=== PATIENT | female | born 2005 | race Caucasian/White ===

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

== ENCOUNTER 2025-01-07 07:46 | Outpatient (RCR) | payer BC, OTHER, SELFPAY ==
[2025-01-07 09:25] VITALS: BP 149/82; PULSE 97; TEMP 36.6; O2SAT 97
[2025-01-07] MEDS: RHO(D) IMMUNE GLOBULIN 1,500 UNIT SYRINGE 1500 UNIT IM (09:28)
== END 2025-01-15 23:59 | disposition home or self-care (01) ==
LOC: LAB 07:46
PROVIDERS: PCP Family Medicine; Visit Provider Obstetrics & Gynecology
DX: Z67.91 Unspecified blood type, Rh negative (principal)
CPT/HCPCS: 36415; 86850; 86900; 86901; 96372; J2791

== ENCOUNTER 2025-02-24 19:15 | Outpatient (REF) | payer BC, OTHER, SELFPAY ==
--- OUTSIDE RECORDS SUMMARY | 2025-02-24 19:20 | XMS_ITS | CCD ---
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 Name Role Phone DANIEL HEWITT Consulting Unavailable DANIEL HEWITT Admitting Unavailable DANIEL HEWITT Attending Unavailable Aracelis Wing Unavailable Richie Tinajero MD Primary Care Provider Richie Tinajero DO Primary Care Provider Richie Tinajero MD Primary Care Provider Richie Tinajero DO Primary Care Provider [phone] JAMMIE KELLEYY R Referring Unavailable FURLONG, RICHIE Daley Primary Care Unavailable SACHIN ROJO Attending Unavailable ALLIE, LESLIE R Referring Unavailable FURLONG, RICHIE Daley Primary Care Unavailable ALLIE, LESLIE R Referring Unavailable FURLONG, RICHIE Daley Primary Care Unavailable SACHIN ROJO Attending Unavailable ALLIE, LESLIE R Referring Unavailable FURLONG, RICHIE Daley Primary Care Unavailable ALLIE, LESLIE R Referring Unavailable FURLONG, RICHIE Daley Primary Care Unavailable TIFFANI HENRIQUEZ Attending Unavailable ALLIE, LESLIE Attending Unavailable ALLIE, LESLIE Attending Unavailable FLORENCETIFFANI HUNTER Attending Unavailable FLORENCE, TIFFANI Attending Unavailable ALLIE, LESLIE Attending Unavailable FLORENCETIFFANI HUNTER Attending Unavailable ALLIE, LESLIE Attending Unavailable ALLIE, LESLIE Attending Unavailable SHAHLA REYNOLDS Attending Unavailable SHAHLA REYNOLDS Attending Unavailable ALLIE, LESLIE Attending Unavailable FLORENCE, TIFFANI Attending Unavailable ALLIE, LESLIE Attending Unavailable ALLIE, LESLIE Attending Unavailable Medications Current Medications Medication Drug Class(es) Dates Sig (Normalized) Sig (Original) acetaminophen 325 mg oral tablet (1 source) take 1 tablet by mouth every four hours as needed Acetaminophen 325 MG 1 tablet as needed Orally every 4 hrs Active no115/iron/folic acid ( 19 ORAL) (6 sources) no115/iron/folic acid ( 19 ORAL) Take by mouth in the morning. Active no115/i roberto/folic acid ( 19 ORAL) Take by mouth daily. Active Vit-Fe Fumarate-FA ( Vitamins) 27-0.8 MG tablet (18 sources) Vit-Fe Fumarate-FA ( Vitamins) 27-0.8 MG tablet Take by mouth Active Completed/Discontinued Medications Medication Drug Class(es) Dates Sig (Normalized) Sig (Original) labetalol hydrochloride 200 mg oral tablet (12 sources) beta-Adrenergic Shantel Start: 03-30-2024 End: 07-12-2024 take 1 tablet by mouth at bedtime labetalol (Normodyne) 200 MG tablet Indications: Secondary hypertension (CMS/HCC) TAKE 1 TABLET (200 MG) BY MOUTH IN THE MORNING AND AT BEDTIME 180 tablet 06/25/2024 07/12/2024 Discontinued levonorgestrel 0.367498 mg/hr intrauterine system (1 source) Progestin, Progestin-containi ng Intrauterine Device Start: 07-12-2024 End: 07-12-2024 Levonorgestrel intrauterine device 52 mg MV-Min-Fe Fum-FA-DHA ( 1 PO) (20 sources) End: 07-12-2024 MV-Min-Fe Fum-FA-DHA ( 1 PO) Take by mouth Daily 07/12/2024 Discontinued MV-Min- Fe Fum-FA-DHA ( 1 PO) Take by mouth Daily Active Problems Active Problems Problem Classification Problem Date Documented Date Episodic/Chronic Anxiety disorders (1 source) Other specified anxiety disorders; Translations: [OTHER SPECIFIED ANXIETY DISORDERS] Onset: 06-07-2019 Chronic Bacterial infection; unspecified site (2 sources) Mycoplasma infection; Translations: [Mycoplasma infection, unspecified site] 04-12-2024 Episodic Immunizations and screening for infectious disease (2 sources) Exposure to sexually transmissible disorder; Translations: [Contact with and (suspected) exposure to infections with a predominantly sexual mode of transmission] 10-18-2024 Episodic Menstrual disorders (2 sources) Missed period; Translations: [Irregular menstruation, unspecified] 07-12-2024 Chronic Other complications of ; puerperium affecting management of mother (3 sources) Disorder of structure; Translations: [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, single or unspecified fetus] 01-04-2025 Episodic Other complications of (2 sources) size does not accord with dates; Translations: [Uterine size-date discrepancy, unspecified trimester] 12-21-2024 Episodic Other complications of (6 sources) heart echogenicity on obstetric ultrasound scan; Translations: [Abnormal ultrasonic finding on screening of mother] Onset: 01-04-2025 01-04-2025 Episodic Other complications of (1 source) Abnormal ultrasonic finding on screening of mother; Translations: [Abnormal ultrasonic finding on screening of mother] Onset: 02-03-2025 Episodic Other congenital anomalies (6 sources) Congenital talipes equinovarus of left foot; Translations: [Congenital talipes equinovarus, left foot] 11-22-2024 Chronic Other and delivery including normal (20 sources) Third trimester ; Translations: [Encounter for supervision of normal , unspecified, third trimester] 02-26-2024 Episodic Other screening for suspected conditions (not mental disorders or infectious disease) (2 sources) Ultrasound scan abnormal; Translations: [Abnormal findings on diagnostic imaging of other specified body structures] 11-22-2024 Chronic Residual codes; unclassified (2 sources) Gestation period, [...] [36 weeks gestation of ] 04-12-2024 Episodic Residual codes; unclassified (2 sources) Gestation period, 37 weeks; Translations: [37 weeks gestation of ] 04-19-2024 Episodic Residual codes; unclassified (2 sources) Gestation period, 14 weeks; Translations: [14 weeks gestation of ] 09-20-2024 Episodic Residual codes; unclassified (2 sources) Gestation period, 18 weeks; Translations: [18 weeks gestation of ] 10-18-2024 Episodic Residual codes; unclassified (2 sources) Gestation period, 27 weeks; Translations: [27 weeks gestation of ] 12-21-2024 Episodic Residual codes; unclassified (2 sources) Gestation period, 29 weeks; Translations: [29 weeks gestation of ] 01-05-2025 Episodic Residual codes; unclassified (2 sources) Gestation period, 31 weeks; Translations: [31 weeks gestation of ] 01-20-2025 Episodic Residual codes; unclassified (2 sources) Gestation period, 33 weeks; Translations: [33 weeks gestation of ] 02-02-2025 Episodic Residual codes; unclassified (2 sources) Gestation period, 35 weeks; Translations: [35 weeks gestation of ] 02-16-2025 Episodic Short gestation; low weight; and growth retardation (2 sources) [id number] baby; Translations: [ small for gestational age, unspecified weight] 03-10-2024 Episodic Suicide and intentional self-inflicted injury (4 sources) Poisoning by selective serotonin reuptake inhibitors, intentional self-harm, initial encounter; Translations: [POISON BERONICA SRI SELF-HARM INIT ENC] Onset: 06-03-2019 Unclassified (1 source) Maternal care for other (suspected) abnormality and damage, cardiac anomalies, fetus 1; Translations: [Maternal care for other (suspected) abnormality and damage, cardiac anomalies, fetus 1] Onset: 01-04-2025 Unclassified (1 source) low estimated weight Onset: 02-09-2024 Unclassified (1 source) Maternal care for other (suspected) abnormality and damage, lower extremities anomalies, not applicable or unspecified; Translations: [Maternal care for other (suspected) abnormality and damage, lower extremities anomalies, not applicable or unspecified] Onset: 02-03-2025 Past or Other Problems Problem Classification Problem Date Documented Da te Episodic/Chronic Mood disorders (9 sources) Mood disorders Onset: 01-07-2023 01-07-2023 Other screening for suspected conditions (not mental disorders or infectious disease) (15 sources) Patient encounter status; Translations: [Encounter for suspected anomaly ruled out] Onset: 02-09-2024 02-09-2024 Episodic Other upper respiratory infections (2 sources) Acute pharyngitis, unspecified; Translations: [Acute upper respiratory infection, unspecified] Onset: 01-11-2022 Resolved: 01-11-2022 Episodic Residual codes; unclassified (2 sources) Gestation period, 26 weeks; Translations: [26 weeks gestation of ] 01-28-2024 Episodic Unclassified (9 sources) Onset: 01-07-2023 01-07-2023 Results Test Name Value Interpretation Reference Range Facility Urinalysis macro (dipstick) panel (U)on 02-16-2025 Bilirubin, UA Negative Negative - 4(70) +++ mg/dL [facility] Blood, UA Negative Negative - 50 Hector/mcL [facility] Healthcare Clarity, UA Clear [facility] Color, UA Yellow [facility] Glucose, UA Negative Negative - 1999(110) ++++ mg/dL [facility] Interpretation and review of laboratory results Normal [facility] Ketones, UA Negative Negative - 160(16) ++++ mg/dL [facility] Leukocytes, UA Negative Negative - 500+++ Josemanuel/mcL [facility] Healthcare Nitrite, UA Negative Negative - Positive [facility] pH, UA 6 5 - 9 [facility] Protein, UA Negative Negative - 1999(20) ++++ mg/dL [facility] Spec Grav, UA 1.015 1 - 1.03 [facility] Urobilinogen, UA 1.0 0.2 - 12 mg/dL [facility] Urinalysis macro (dipstick) panel (U)on 02-02-2025 Bilirubin, UA Negative Negative - 4(70) +++ mg/dL [facility] Blood, UA Negative Negative - 50 Hector/mcL [facility] Healthcare Clarity, UA Clear [facility] re Color, UA Yellow [facility] Glucose, UA Negative Negative - 1999(110) ++++ mg/dL [facility] Interpretation and review of laboratory results Abnormal [facility] Ketones, UA Negative Negative - 160(16) ++++ mg/dL [facility] Healthcare Leukocytes, UA Negative Negative - 500+++ Josemanuel/mcL [facility] Healthcare Nitrite, UA Negative Negative - Positive [facility] pH, UA 6 5 - 9 [facility] Protein, UA Negative Negative - 1999(20) ++++ mg/dL [facility] Spec Grav, UA 1.015 1 - 1.03 [facility] Urobilinogen, UA 1.0 0.2 - 12 [facility]/dL [facility] Urinalysis macro (dipstick) panel (U)on 01-20-2025 Bilirubin, UA Negative Negative - 4(70) +++ mg/dL [facility] Blood, UA Negative Negative - 50 Hector/mcL [facility] Healthcare Clarity, UA Clear [facility] re Color, UA Yellow [facility] Glucose, UA Negative Negative - 1999(110) ++++ mg/dL [facility] Interpretation and review of laboratory results Normal [facility] Ketones, UA Negative Negative - 160(16) ++++ mg/dL [facility] Leukocytes, UA Negative Negative - 500+++ Josemanuel/mcL [facility] Nitrite, UA Negative Negative - Positive [facility] pH, UA 6 5 - 9 [facility] e Protein, UA Negative Negative - 1999(20) ++++ mg/dL [facility] Spec Grav, UA 1.015 1 - 1.03 [facility] Urobilinogen, UA 1.0 0.2 - 12 mg/dL [facility] Urinalysis macro (dipstick) panel (U)on 01-05-2025 Bilirubin, UA Negative Negative - 4(70) +++ mg/dL [facility] Blood, UA Negative Negative - 50 Hector/mcL [facility] Clarity, UA Clear [facility] re Color, UA Yellow [facility] Glucose, UA Negative Negative - 1999(110) ++++ mg/dL [facility] Interpretation and review of laboratory results Abnormal [facility] Ketones, UA Negative Negative - 160(16) ++++ mg/dL [facility] Leukocytes, UA Positive Negative - 500+++ Josemanuel/mcL [facility] Nitrite, UA Negative Negative - Positive [facility] pH, UA 6.5 5 - 9 [facility] Protein, UA Negative Negative - 1999(20) ++++ mg/dL [facility] Spec Grav, UA 1.015 1 - 1.03 [facility] Urobilinogen, UA 1.0 0.2 - 12 mg/dL [facility] Urinalysis macro (dipstick) panel (U)on 12-21-2024 Bilirubin, UA Negative Negative - 4(70) +++ mg/dL [facility] Blood, UA Negative Negative - 50 Hector/mcL [facility] Clarity, UA Cloudy [facility] re Color, UA Yellow [facility] Glucose, UA Negative Negative - 1999(110) ++++ mg/dL [facility] Interpretation and review of laboratory results Abnormal [facility] Ketones, UA Negative Negative - 160(16) ++++ mg/dL [facility] Leukocytes, UA 1+ Negative - 500+++ Josemanuel/mcL [facility] Comment on above: 70 Nitrite, UA Negative Negative - Positive [facility] pH, UA 6.5 5 - 9 [facility] e Protein, UA Negative Negative - 1999(20) ++++ mg/dL [facility] Spec Grav, UA 1.015 1 - 1.03 [facility] Urobilinogen, UA 1.0 0.2 - 12 mg/dL [facility] DRUG SCREEN RAPID (URINE )on 12-20-2024 AMPHETAMINE SCREEN URINE Negative NEGATIVE [facility] BARBITURATES SCREEN URINE Negative NEGATIVE [facility] BENZODIAZEPINES SCREEN URINE Negative NEGATIVE [facility] BUPRENORPHINE SCREEN URINE Negative NEGATIVE [facility] Comment on above: DRUG CLASS TEST SYST EM CUT-OFF CONCENTRATIONS ARE FOLLOWS: AMP (Amphetamine): 500 ng/mL BAR (Barbiturates): 200 ng/mL BZO (Benzodiazepines): 150 ng/mL BUP (Buprenorphine): 10 ng/mL KELLIE (Cocaine): 150 ng/mL mAMP (Methamphetamine): 500 ng/mL MTD (Methadone): 200 ng/mL OPI (Opiates): 100 ng/mL OXY (Oxycodone): 100 ng/mL PCP (Phencyclidine): 25 ng/mL THC (Cannabinoids): 50 ng/mL TCA (Trycyclic Antidepressants): 300 ng/mL CANNABINOID SCREEN URINE Negative NEGATIVE [facility] COCAINE SCREEN URINE Negative NEGATIVE [facility] METHADONE SCREEN URINE Negative NEGATIVE [facility] METHAMPHETAMINES SCREEN URINE Negative NEGATIVE [facility] OPIATE SCREEN URINE Negative NEGATIVE [facility] OXYCODONE SCREEN URINE Negative NEGATIVE [facility] PHENCYCLIDINE SCREEN URINE Negative NEGATIVE [facility] TRICYCLIC ANTIDEPRESSANT URINE Negative NEGATIVE [facility] Ultrasound - Officeon 2024 Radiology Study observation (narrative) [facility] Radiology Study observation (narrative) [facility] Ultrasound - Officeon 2024 [facility] Urinalysis macro (dipstick) panel (U)on 11-22-2024 Bilirubin, UA Negative Negative - 4(70) +++ mg/dL [facility] Blood, UA Negative Negative - 50 Hector/mcL [facility] Clarity, UA Clear [facility] re Color, UA Yellow [facility] Glucose, UA Negative Negative - 1999(110) ++++ mg/dL [facility] Interpretation and review of laboratory results Abnormal [facility] Ketones, UA Negative Negative - 160(16) ++++ mg/dL [facility] Leukocytes, UA Negative Negative - 500+++ Josemanuel/mcL [facility] Nitrite, UA Negative Negative - Positive [facility] pH, UA 7 5 - 9 [facility] e Protein, UA Negative Negative - 1999(20) ++++ mg/dL [facility] Spec Grav, UA 1.01 1 - 1.03 [facility] Urobilinogen, UA 0.2 0.2 - 12 mg/dL [facility] RECURRENT VAGINITIS (HTRX)on 10-19-2024 ATOPOBIUM VAGINAE 27.619 Abnormal [facility] ATOPOBIUM VAGINAE Detected Abnormal [facility] BVAB 2,3 (BACTERIAL VAGINOSIS ASSOCIATED BACTERIA 2, 3); MOBILUNCUS SPP 24.427 Abnormal [facility] BVAB 2,3 (BACTERIAL VAGINOSIS ASSOCIATED BACTERIA 2, 3); MOBILUNCUS SPP Detected Abnormal [facility] EFREN ALBICANS, PARAPSILOSIS, TROPICALIS 0 [facility] EFREN ALBICANS, PARAPSILOSIS, TROPICALIS Not detected [facility] GLABRATA Not detected [facility] Not [facility] CHLAMYDIA TRACHOMATIS 0 [facility] CHLAMYDIA TRACHOMATIS Not detected N [facility] Healthcare ERMB, C; MEFA 19.826 Abnormal [facility] ERMB, C; MEFA Detected Abnormal [facility] GARDNERELLA VAGINALIS 19.747 Abnormal [facility] GARDNERELLA VAGINALIS Detected Abnormal [facility] Interpretation and review of laboratory results Abnormal [facility] MEGASPHAERA (TYPES 1, 2) 0 [facility] MEGASPHAERA (TYPES 1, 2) Not detected [facility] MYCOPLASMA GENITALIUM 0 [facility] S [facility] MYCOPLASMA GENITALIUM Not detected N OMS [facility] NEISSERIA GONORRHOEAE 0 [facility] S Healthcare NEISSERIA GONORRHOEAE Not detected N [facility] Healthcare TET B, TET M 17.847 Abnormal [facility] Healthc are TET B, TET M Detected Abnormal [facility] are TRICHOMONAS VAGINALIS 0 [facility] S [facility] TRICHOMONAS VAGINALIS Not detected N [facility] US OB 14+ WEEKS ANATOMY SCAN on 10-18-2024 US OB 14+ WEEKS ANATOMY SCAN FINDINGS: A single, live intrauterine is present [...] date of delivery of March 20, 2025. IMPRESSION: 1. Single, live intrauterine , current sonographic age of 23 weeks and 1 day, with an estimated date of delivery of March 20, 2025 2. Atypical foot morphology, possible fusion TRANSCRIBED BY: ELECTRONICALLY SIGNED BY: Keith Mcneal MD Normal Not Available Comment on above: Order Comment: US OB ANATOMY SINGLE W US OB CERVICAL LENGTH Estimated Date of Delivery: 03/21/25 Gestational Age as of 10/18/2024: 18w0d Urinalysis macro (dipstick) panel (U)on 10-18-2024 Bilirubin, UA Negative Negative - 4(70) +++ mg/dL [facility] Blood, UA Negative Negative - 50 Hector/mcL [facility] Clarity, [facility]A Clear [facility], UA Yellow [facility] e Glucose, UA Negative Negative - 2000(110) ++++ mg/dL [facility] Interpretation and review of laboratory results Abnormal [facility] Ketones, UA Negative Negative - 160(16) ++++ mg/dL [facility] Leukocytes, UA Negative Negative - 500+++ Josemanuel/mcL [facility] Nitrite, UA Negative Negative - Positive [facility] pH, UA 6.5 5 - 9 [facility] Health[facility] e Protein, UA Negative Negative - 1999(20) ++++ mg/dL [facility] Spec Grav, UA 1.025 1 - 1.03 [facility] Urobilinogen, UA 1.0 0.2 - 12 mg/dL [facility] No Panel Informationon 10-15 [facility] Rubella IGG immune statuson 10-15-2024 Rubella immune IgG immune [facility] T. pallidum IgG+IgM IA Ql (S )on 10-15-2024 Syphilis Non-Reactive [facility] Urinalysis macro (dipstick) panel (U)on 09-20-2024 Bilirubin, UA Negative Negative - 4(70) +++ mg/dL [facility] Blood, UA Negative Negative - 50 Hector/mcL [facility] Clarity, UA Clear [facility] re Color, UA Yellow [facility] e Glucose, UA Negative Negative - 1999(110) ++++ mg/dL [facility] Interpretation and review of laboratory results Normal [facility] Ketones, UA Negative Negative - 160(16) ++++ mg/dL [facility] Leukocytes, UA Trace Negative - 500+++ Josemanuel/mcL [facility] Nitrite, UA Negative Negative - Positive [facility] pH, UA 7 5 - 9 [facility] e Protein, UA Negative Negative - 1999(20) ++++ mg/dL [facility] Spec Grav, UA 1.025 1 - 1.03 [facility] Urobilinogen, UA 1.0 0.2 - 12 mg/dL [facility] HCG ( test) Ql (U)o n 08-19-2024 Interpretation and review of laboratory results Abnormal [facility] Preg Test, Ur Positive Negative [facility] US OB TRANSVAGINALon 025 US OB TRANSVAGINAL EXAM: US OB TRANSVAGINAL HISTORY: Dating. COMPARISON: None available. TECHNIQUE: Two-dimensional transvaginal grayscale ultrasound imaging of the pelvis was performed. Color Doppler evaluation of the ovaries was also performed. FINDINGS: The uterus demonstrates a normal homogeneous echotexture. The cervix measures 4.4 cm and the cervical os is closed. The right ovary measures 3.3 x 1.9 x 1.9 cm and demonstrates a normal echotexture. There is normal color Doppler flow. There is a 1.5 cm corpus luteal cyst visualized. The left ovary is not visualized. Trace fluid is present within the right adnexa. There is a single, live intrauterine gestation identified with a heart rate of 171 beats per minute and a crown-rump length measurement of 2.7 cm, correlating to a gestational age of 9 weeks 4 days (+/- 6 days). There is no subchorionic hemorrhage visualized. A yolk sac is visualized. IMPRESSION: 1. Single, live intrauterine gestation 9 weeks, 3 days by LMP. Today's ultrasound measurements correlate with a gestational age of 9 weeks 4 days (+/- 6 days). ROSALIA by today's ultrasound is 03/20/2025. 2. Normal color Doppler evaluation of the right ovary, the left ovary was not visualized. Electronically Signed:Electronical ly signed by HEMAL HANSEN II, MD, PHD at 20-Aug-2024 08:40:09 AM [facility] Normal Not Available Comment on above: Order Comment: US OB TRANSVAGINAL No LMP recorded. Ultrasound - Officeon 2024 [facility] Urinalysis macro (dipstick) panel (U)on 08-19-2024 Bilirubin, UA Negative Negative - 4(70) +++ mg/dL [facility] Blood, UA Negative Negative - 50 Hector/mcL [facility] Clarity, UA Clear [facility] Color, UA Yellow [facility] Glucose, UA Negative Negative - 1999(110) ++++ mg/dL [facility] Interpretation and review of laboratory results Abnormal [facility] Ketones, UA Positive Negative - 160(16) ++++ mg/dL [facility] Comment on above: Trace Leukocytes, UA Trace Negative - 500+++ Josemanuel/mcL [facility] Nitrite, UA Negative Negative - [facility], UA 6.5 5 - 9 [facility] Protein, UA Positive Negative - 1999(20) ++++ mg/dL [facility] Comment on above: 30mg/dL Spec Grav, UA 1.025 1 - 1.03 [facility] Urobilinogen, UA 0.2 0.2 - 12 mg/dL [facility] PREG QUANT HCGon 025 HCG QUANTITATIVE 3613 mIU/mL [facility] Comment on above: 5-50 0.2-1 WEEK 50-500 1-2 WEEKS 100-5,000 2-3 WEEKS 500-10,000 3-4 WEEKS 1,000-50,000 4-5 WEEKS 10,000-100,000 5-6 WEEKS 15,000-200,000 6-8 WEEKS 10,000-100,000 2[facility] Ql (U)o n 07-13-2024 Interpretation and review of laboratory results Abnormal [facility] Preg Test, Ur Positive Negative [facility] TBH PREG QUANT HCGon 025 HCG QUANTITATIVE 1428 mIU/mL [facility] Comment on above: 5-50 0.2-1 WEEK 50-500 1-2 WEEKS 100-5,000 2-3 WEEKS 500-10,000 3-4 WEEKS 1,000-50,000 4-5 WEEKS 10,000-100,000 5-6 WEEKS 15,000-200,000 6-8 WEEKS 10,000-100,000 2-[facility] CBC WITH AUTO DIFFon BASOPHILS ABSOLUTE AUTO 0.1 [facility] Basophils/100 WBC (Bld) 0.5 % 0.2 - 2.0 % [facility] Eosinophils/100 WBC (Bld) 1 % 0.9 - 7.0 % [facility] Erythrocyte distribution width (RBC) [Ratio] 13.5 % 11.0 - 15.0 % [facility] Hematocrit (Bld) [Volume fraction] 31.9 % Low 36.0 - 48.0 % [facility] Hemoglobin (Bld) [Mass/Vol] 10.5 g/dL Low 12.0 - 16.0 g/dL [facility] IMMATURE GRANULOCYTES ABS AUTO 0.13 High [facility] Immature granulocytes/100 WBC (Bld) 1.2 % High 0.0 - 0.5 % [facility] Interpretation and review of laboratory results Abnormal [facility] LYMPHOCYTES ABSOLUTE AUTO 3.8 [facility] Lymphocytes/100 WBC (Bld) 34.5 % 20.5 - 60.0 % [facility] MCH (RBC) [Entitic mass] 29.7 pg 26.7 - 34.0 pg [facility] MCHC (RBC) [Mass/Vol] 32.9 g/dL 29.9 - 35.2 g/dL [facility] MCV (RBC) [Entitic vol] 90.4 fL 81.0 - 99.0 fL [facility] MONOCYTES ABSOLUTE AUTO 0.6 [facility] Monocytes/100 WBC (Bld) 5.5 % 1.7 - 12.0 % [facility] NEUTROPHILS ABSOLUTE AUTO 6.3 [facility] Neutrophils/100 WBC (Bld) 57.3 % 43.0 - 75.0 % [facility] Platelet mean volume (Bld) [Entitic vol] 11.2 fL 9.5 - 13.5 fL [facility] EO # 0.1 [facility] TB PLT 240 [facility] TB RBC 3.53 Low [facility] TB WBC 11 [facility] e [facility] HP CBC WITH PLATELET NO DI FFERENTIALon 04-21-2024 Erythrocyte distribution width (RBC) [Ratio] 13.2 % 11.0 - 15.0 % [facility] Hematocrit (Bld) [Volume fraction] 33.7 % Low 36.0 - 48.0 % [facility] e Hemoglobin (Bld) [Mass/Vol] 11.2 g/dL Low 12.0 - 16.0 g/dL [facility] Interpretation and review of laboratory results Abnormal [facility] MCH (RBC) [Entitic mass] 29.6 pg 26.7 - 34.0 pg [facility] MCHC (RBC) [Mass/Vol] 33.2 g/dL 29.9 - 35.2 g/dL [facility] MCV (RBC) [Entitic vol] 89.2 fL 81.0 - 99.0 fL [facility] Platelet mean volume (Bld) [Entitic vol] 11.7 fL 9.5 - 13.5 fL [facility] are TB PLT 275 [facility] TB RBC 3.78 Low [facility] TB WBC 10.6 [facility] Urinalysis macro (dipstick) panel (U)on 04-19-2024 Bilirubin, UA Negative Negative - 4(70) +++ mg/dL [facility] Blood, UA Negative Negative - 50 Hector/mcL [facility] Healthcare Clarity, UA Clear [facility] re Color, UA Yellow [facility] Glucose, UA Negative Negative - 1999(110) ++++ mg/dL [facility] Interpretation and review of laboratory results Abnormal [facility] Ketones, UA Negative Negative - 160(16) ++++ mg/dL [facility] Leukocytes, UA Moderate Negative - 500+++ Josemanuel/mcL [facility] Nitrite, UA Negative Negative - Positive [facility] pH, UA 7 5 - 9 [facility] Protein, UA Negative Negative - 1999(20) ++++ mg/dL [facility] Spec Grav, UA 1.015 1 - 1.03 [facility] Urobilinogen, UA 0.2 0.2 - 12 mg/dL [facility]inal[facility] macro (dipstick) panel (U)on 04-12-2024 Bilirubin, UA Negative Negative - 4(70) +++ mg/dL [facility] Blood, UA Negative Negative - 50 Hector/mcL [facility] Healthcare Clarity, UA Clear [facility] re Color, UA Yellow [facility] Glucose, UA Negative Negative - 1999(110) ++++ mg/dL [facility] Interpretation and review of laboratory results Abnormal [facility] Ketones, UA Negative Negative - 160(16) ++++ mg/dL [facility] Leukocytes, UA Positive Negative - 500+++ Josemanuel/mcL [facility] Comment on above: small Nitrite, UA Negative Negative - Positive [facility] pH, UA 7 5 - 9 [facility] Healthcar e Protein, UA Negative Negative - 1999(20) ++++ mg/dL [facility] Spec Grav, UA 1.02 1 - 1.03 [facility] Urobilinogen, UA 0.2 0.2 - 12 mg/dL [facility] TB TOTAL PROTEIN 24 HOUR UR INEon 03-31-2024 Interpretation and review of laboratory results Abnormal [facility] Protein (U) [Mass/Vol] 10.7 mg/dL NINF - 11.9 mg/dL [facility] TB TOTAL PROTEIN 24 HOUR URINE 181.9 High [facility] TOTAL VOLUME 24 HOUR URINE 1700 mL/24hr [facility] e ALL CBC WITH AUTO DIFFon BASOPHILS ABSOLUTE AUTO 0 [facility] Healthcare Basophils/100 WBC (Bld) 0.3 % 0.2 - 2.0 % [facility] Eosinophils/100 WBC (Bld) 0.6 % Low 0.9 - 7.0 % [facility] Erythrocyte distribution width (RBC) [Ratio] 12.3 % 11.0 - 15.0 % [facility] Hematocrit (Bld) [Volume fraction] 34.8 % Low 36.0 - 48.0 % [facility] e Hemoglobin (Bld) [Mass/Vol] 11.7 g/dL Low 12.0 - 16.0 g/dL [facility] IMMATURE GRANULOCYTES ABS AUTO 0.15 High [facility] Immature granulocytes/100 WBC (Bld) 1.2 % High 0.0 - 0.5 % [facility] Interpretation and review of laboratory results Abnormal [facility] LYMPHOCYTES ABSOLUTE AUTO 2.6 [facility] Lymphocytes/100 WBC (Bld) 20.8 % 20.5 - 60.0 % [facility] MCH (RBC) [Entitic mass] 30 pg 26.7 - 34.0 pg [facility] MCHC (RBC) [Mass/Vol] 33.6 g/dL 29.9 - 35.2 g/dL [facility] MCV (RBC) [Entitic vol] 89.2 fL 81.0 - 99.0 fL [facility] MONOCYTES ABSOLUTE AUTO 0.5 [facility] Monocytes/100 WBC (Bld) 4.3 % 1.7 - 12.0 % [facility] NEUTROPHILS ABSOLUTE AUTO 9 High [facility] Neutrophils/100 WBC (Bld) 72.8 % 43.0 - 75.0 % [facility] Platelet mean volume (Bld) [Entitic vol] 10.8 fL 9.5 - 13.5 fL [facility] Healthc are TBH EO # 0.1 [facility] TBH PLT 289 [facility] TBH RBC 3.9 Low [facility] TBH WBC 12.3 High [facility] e Urinalysis macro (dipstick) panel (U)on 03-24-2024 Bilirubin, UA Negative Negative - 4(70) +++ mg/dL [facility] Blood, UA Negative Negative - 50 Hector/mcL [facility] Healthcare Clarity, UA Clear [facility] Color, UA Yellow [facility] Glucose, UA Negative Negative - 1999(110) ++++ mg/dL [facility] Interpretation and review of laboratory results Normal [facility] Ketones, UA Negative Negative - 160(16) ++++ mg/dL [facility] Leukocytes, UA Negative Negative - 500+++ Josemanuel/mcL [facility] Healthcare Nitrite, UA Negative Negative - Positive [facility] pH, UA 6.5 5 - 9 [facility] Health[facility] e Protein, UA Negative Negative - 1999(20) ++++ mg/dL [facility] Healthcare Spec Grav, UA 1.02 1 - 1.03 [facility] Urobilinogen, UA 0.2 0.2 - 12 mg/dL [facility] Urinalysis macro (dipstick) panel (U)on 03-10-2024 Bilirubin, UA Negative Negative - 4(70) +++ mg/dL [facility] Blood, UA Negative Negative - 50 Hector/mcL [facility] Healthcare Clarity, UA Clear [facility] Healthca re Color, UA Yellow [facility] Glucose, UA Negative Negative - 1999(110) ++++ mg/dL [facility] Interpretation and review of laboratory results Abnormal [facility] Ketones, UA Negative Negative - 160(16) ++++ mg/dL [facility] Healthcare Leukocytes, UA Trace Negative - 500+++ Josemanuel/mcL [facility] Healthcare Nitrite, UA Negative Negative - Positive [facility] pH, UA 7.5 5 - 9 [facility] Protein, UA Negative Negative - 1999(20) ++++ mg/dL [facility] Healthcare Spec Grav, UA 1.015 1 - 1.03 [facility] care Urobilinogen, UA 0.2 0.2 - 12 mg/dL [facility] Urinalysis macro (dipstick) panel (U)on 02-26-2024 Bilirubin, UA Negative Negative - 4(70) +++ mg/dL [facility] Blood, UA Negative Negative - 50 Hector/mcL [facility] Clarity, UA Clear [facility] Color, UA Yellow [facility] Glucose, UA Negative Negative - 1999(110) ++++ mg/dL [facility] Healthcare Interpretation and review of laboratory results Normal [facility] Healthcare Ketones, UA Negative Negative - 160(16) ++++ mg/dL [facility] Leukocytes, UA Negative Negative - 500+++ Josemanuel/mcL [facility] Healthcare Nitrite, UA Negative Negative - Positive [facility] Healthcare pH, UA 5.5 5 - 9 [facility] Protein, UA Negative Negative - 1999(20) ++++ mg/dL [facility] Healthcare Spec Grav, UA 1.030 1 - 1.03 [facility] Urobilinogen, UA 0.2 0.2 - 12 mg/dL [facility] Healthcare [facility] Ultrasound - OfficeOrdered B y: Martha Perdomo on 02-05-2024 Radiology Study observation (narrative) [facility] Ultrasound - Officeon 2023 Radiology Study observation (narrative) [facility] Urinalysis macro (dipstick) panel (U)on 01-28-2024 Bilirubin, UA Negative Negative - 4(70) +++ mg/dL [facility] Blood, UA Negative Negative - 50 Hector/mcL [facility] Healthcare Clarity, UA Clear [facility] Color, UA Yellow [facility] Glucose, UA Negative Negative - 1999(110) ++++ mg/dL [facility] Interpretation and review of laboratory results Normal [facility] Ketones, UA Negative Negative - 160(16) ++++ mg/dL [facility] Leukocytes, UA Negative Negative - 500+++ Josemanuel/mcL [facility] Healthcare Nitrite, UA Negative Negative - Positive [facility] Healthcare pH, UA 7.0 5 - 9 [facility] Protein, UA Negative Negative - 1999(20) ++++ mg/dL [facility] Healthcare Spec Grav, UA 1.025 1 - 1.03 [facility] Urobilinogen, UA 0.2 0.2 - 12 mg/dL [facility] Healthcare [facility] Ultrasound - Officeon 2023 [facility] ALL CBC WITH AUTO DIFFon BASOPHILS ABSOLUTE AUTO 0.0 [facility] Basophils/100 WBC (Bld) 0.3 % 0.2 - 2.0 % [facility] Eosinophils/100 WBC (Bld) 0.4 % Low 0.9 - 7.0 % [facility] Erythrocyte distribution width (RBC) [Ratio] 12.3 % 11.0 - 15.0 % [facility] Hematocrit (Bld) [Volume fraction] 36.2 % 36.0 - 48.0 % [facility] Health[facility] e Hemoglobin (Bld) [Mass/Vol] 12.6 g/dL 12.0 - 16.0 g/dL [facility] IMMATURE GRANULOCYTES ABS AUTO 0.06 High [facility] Immature granulocytes/100 WBC (Bld) 0.5 % 0.0 - 0.5 % [facility] Interpretation and review of laboratory results Abnormal [facility] LYMPHOCYTES ABSOLUTE AUTO 2.1 [facility] Lymphocytes/100 WBC (Bld) 18.0 % Low 20.5 - 60.0 % [facility] MCH (RBC) [Entitic mass] 32.6 pg 26.7 - 34.0 pg [facility] MCHC (RBC) [Mass/Vol] 34.8 g/dL 29.9 - 35.2 g/dL [facility] MCV (RBC) [Entitic vol] 93.8 fL 81.0 - 99.0 fL [facility] MONOCYTES ABSOLUTE AUTO 0.5 [facility] Monocytes/100 WBC (Bld) 3.9 % 1.7 - 12.0 % [facility] NEUTROPHILS ABSOLUTE AUTO 9.1 High [facility] Neutrophils/100 WBC (Bld) 76.9 % High 43.0 - 75.0 % [facility] Platelet mean volume (Bld) [Entitic vol] 10.4 fL 9.5 - 13.5 fL [facility].1 [facility] TB PLT 281 [facility] TB RBC 3.86 Low [facility] e TB WBC 11.9 High [facility] e Unlisted Lab Teston 12-31-19 [facility] Unlisted Lab Teston 10-24-19 [facility] HIV 1&2 AB/AG Screen (P24 AG )on 10-16-2023 HIV 1&2 AB/AG Non-Reactive [facility] Hemoglobin A1con 10-16-2023 HbA1c (Bld) [Mass fraction] 4.8 % 4.0 - 6.0 % [facility] Hepatitis B surface antigeno n 10-16-2023 Hepatitis B Surface Antigen Negative [facility] Hepatitis C(HCV) Ab w/ Refle x to PCRon 10-16-2023 HCV Ab Ql (S) Non-Reactive [facility] No [facility] 10-15 [facility] Rubella IGG immune statuson 10-16-2023 Rubella immune IgG 9.36 IU/mL [facility] Syphilis Total(Unknown Syphi lis Status)on 10-16-2023 Syphilis [facility]-Re[facility] Type and screenon 10-16-2023 Abo/Rh(D) Negative [facility] Drug Screen, UrineOrdered By : Martha Perdomo on 10-12-2023 Amphetamine/Methamphe tamine Negative [facility] Barbiturate Screen Urine Negative [facility] Benzodiazepine Screen, Urine Negative [facility] Cocaine Metabolite Negative [facility] Methadone,Meconium Negative [facility] Opiate Quantitative Urine Negative [facility] Oxycodone Negative [facility] Phencyclidine [facility] Thc Marijuana, Urine Negative [facility] Ultrasound - OfficeOrdered B y: Martha Perdomo on 10-03-2023 [facility] Unlisted Lab Teston 09-23-19 24 [facility] Quick Strepon 01-11-2022 S. pyogenes Org specific cx Ql (Throat) Negative [facility] Other Quick Strep [facility] Other SARS-CoV-2 (COVID-19) RNA NA A+probe Ql (Resp)on 01-11-2022 SARS-CoV-2 (COVID-19) RNA NIK+probe Ql (Unsp spec) Negative [facility] Other ACETAMINOPHENon 06-03-2019 Acetaminophen [Mass/Vol] <10.0 Critically low 10.1-30.0 [facility] Comment on above: Performed By: #### S ALYC, ACET, ETH #### [facility] [address] [place] [address] Scottie Lanette CBC AUTO DIFFon 06-03-2019 Basophils (Bld) [#/Vol] 0.1 103/ul Normal 0.0-0.1 [facility] Comment on above: Performed By: #### C BC #### [facility] [address] [place], [place] [id number] Scottie Lanette Basophils/100 WBC (Bld) 0.4 % Normal 0.2-2.0 [facility] Comment on above: Performed By: #### C BC #### [facility] [address] [place] [address] Scottie Lanette Eosinophils (Bld) [#/Vol] 0.1 103/ul Normal 0.0-0.7 [facility] Comment on above: Performed By: #### C BC #### [facility] [address] [place] [address] Scottie Lanette Eosinophils/100 WBC (Bld) 0.4 % Critically low 0.9-7.0 [facility] Comment on above: Performed By: #### C BC #### [facility] [address] [place] [address] Scottie Lanette Erythrocyte distribution width (RBC) [Ratio] 11.8 % Normal 11.0-15.0 [facility] Comment on above: Performed By: #### C BC #### [facility] [address] [place] [address] Scottie Lanette Hematocrit (Bld) [Volume fraction] 40.8 % Normal 36.0-48.0 [facility] Comment on above: Performed By: #### C BC #### [facility] [address] [place] [address] Scottie Lanette Hemoglobin (Bld) [Mass/Vol] 14.2 g/dL Normal 12.0-16.0 [facility] Comment on above: Performed By: #### C BC #### [facility] [address] [place] [address] Scottie Lanette IG # 0.03 10e3/ul Normal 0.00-0.03 [facility] Comment on above: Performed By: #### C BC #### [facility] [address] [place], [place] [address] Scottie Lanette IG % 0.2 % Normal 0.0-0.5 [facility] Comment on above: Performed By: #### C BC #### [facility] [address] [place] [phone] Scottie Lanette Lymphocytes (Bld) [#/Vol] 2.4 103/ul Normal 1.2-3.8 [facility] Comment on above: Performed By: #### C BC #### [facility] [address] [place] [address] Scottie Lanette Lymphocytes/100 WBC (Bld) 17.2 % Critically low 20.5-60.0 [facility] Comment on above: Performed By: #### C BC #### [facility] [address] [place], [place] [phone] Scottie Lanette MANUAL DIFF REQ NO Normal [facility] Comment on above: Performed By: #### C BC #### [facility] [address] [place] [id number] Scottie Lanette MCH (RBC) [Entitic mass] 31.2 pg Normal 26.7-34.0 [facility] Comment on above: Performed By: #### C BC #### [facility] [address] [place] [address] Scottie Lanette MCHC (RBC) [Mass/Vol] 34.8 g/dL Normal 29.9-35.2 [facility] Comment on above: Performed By: #### C BC #### [facility] [address] [place] [address] Scottie Lanette MCV (RBC) [Entitic vol] 89.7 fL Normal 79.1-95.6 [facility] Comment on above: Performed By: #### C BC #### [facility] [address] [place], [place] [phone] Scottie Lanette Monocytes (Bld) [#/Vol] 0.6 103/ul Normal 0.3-0.8 [facility] Comment on above: Performed By: #### C BC #### [facility] [address] [place], [place] [address] Scottie Lanette Monocytes/100 WBC (Bld) 4.5 % Normal 1.7-12.0 [facility] Comment on above: Performed By: #### C BC #### [facility] [address] [place], [place] [address] Scottie Lanette Neutrophils (Bld) [#/Vol] 10.9 103/ul Critically high 1.4-6.5 [facility] Comment on above: Performed By: #### C BC #### [facility] [address] [place], [place] [address] Scottie Lanette Neutrophils/100 WBC (Bld) 77.3 % Critically high 43.0-75.0 [facility] Comment on above: Performed By: #### C BC #### [facility] [address] [place] [address] Scottie Lanette Platelet mean volume (Bld) [Entitic vol] 10.7 fL Normal 9.5-13.5 [facility] Comment on above: Performed By: #### C BC #### [facility] [address] [place] [address] Scottie Lanette Platelets (Bld) [#/Vol] 348 103/ul Normal 150-450 [facility] Comment on above: Performed By: #### C BC #### [facility] [address] [place] [phone] Scottie Lanette RBC (Bld) [#/Vol] 4.55 106/ul Normal 3.40-5.30 [facility] Comment on above: Performed By: #### C BC #### [facility] [address] [place] [address] Scottie Lanette WBC (Bld) [#/Vol] 14.1 103/ul Critically high 4.0-11.0 [facility] [place] Comment on above: Performed By: #### C BC #### [facility] [address] [place] [address] Scottie Lanette DRUG SCREEN RAPID (URINE)on 06-03-2019 AMP Negative Normal NEGATIVE [facility] Comment on above: Performed By: #### TRACY CONNER DRUGRPD #### [facility] [address] [place] [address] Scottie Lanette BAR Negative Normal NEGATIVE [facility] Comment on above: Performed By: #### TRACY CONNER DRUGRPD #### [facility] [address] [place] [address] Scottie Lanette BUP Negative Normal NEGATIVE [facility] Comment on above: Performed By: #### TRACY CONNER DRUGRPD #### [facility] [address] [place] [address] Scottie Lanette BZO Negative Normal NEGATIVE [facility] Comment on above: Performed By: #### TRACY CONNER DRUGRPD #### [facility] [address] [place] [address] Scottie Lanette KELLIE Negative Normal NEGATIVE [facility] Comment on above: Performed By: #### TRACY CONNER DRUGRPD #### [facility] [address] [place] [address] Scottie Lanette CUT-OFFS SEE BELOW Normal [facility] Comment on above: Result Comment: AMP (Amphetamine): [...] Performed By: #### TRACY CONNER DRUGRPD #### [facility] [address] [place] [address] Scottie Lanette DRUG CUT HEADER DRUG CLASS TEST SYSTEM CUT-OFF CONCENTRATIONS ARE FOLLOWS: Normal [facility] Comment on above: Performed By: #### TRACY CONNER, DRUGRPD #### [facility] [address] [place] [address] Scottie Lanette mAMP Negative Normal NEGATIVE [facility] Comment on above: Performed By: #### TRACY CONNER, DRUGRPD #### [facility] [address] [place] [address] Scottie Lanette MTD Negative Normal NEGATIVE [facility] Comment on above: Performed By: #### TRACY CONNER, DRUGRPD #### [facility] [address] [place] [address] Scottie Lanette OPI Negative Normal NEGATIVE [facility] Comment on above: Performed By: #### TRACY CONNER, DRUGRPD #### [facility] [address] [place] [address] Scottie Lanette OXY Negative Normal NEGATIVE [facility] Comment on above: Performed By: #### TRACY CONNER DRUGRPD #### [facility] [address] [place] [address] Scottie Lanette PCP Negative Normal NEGATIVE [facility] Comment on above: Performed By: #### TRACY CONNER, DRUGRPD #### [facility] [address] [place] [address] Scottie Lanette PPX Negative Normal NEGATIVE [facility] Comment on above: Performed By: #### TRACY CONNER DRUGRPD #### [facility] [address] [place] [address] Scottie Lanette TCA Negative Normal NEGATIVE [facility] Comment on above: Performed By: #### TRACY CONNER DRUGRPD #### [facility] [address] [place] [address] Scottie Lanette THC Negative Normal NEGATIVE [facility] Comment on above: Performed By: #### TRACY CONNER DRUGRPD #### [facility] [address] [place] [address] Scottie Lanette ER URINE PROFILEon 01-16-202 0 Bilirubin [Mass/Vol] Negative Normal NEGATIVE [facility] Comment on above: Performed By: #### TRACY CONNER DRUGRPD #### [facility] [address] [place] [address] Scottie Lanette BLOOD LARGE Normal NEGATIVE [facility] Comment on above: Performed By: #### TRACY CONNER, DRUGRPD #### [facility] [address] [place] [address] Scottie Lanette Clarity (U) CLEAR Normal [facility] Comment on above: Performed By: #### TRACY CONNER DRUGRPD #### [facility] [address] [place] [address] Scottie Lanette Color (U) LT. YELLOW Normal YELLOW [facility] Comment on above: Performed By: #### TRACY CONNER DRUGRPD #### [facility] [address] [place] [address] Scottie Lanette ERUAHD A micrscopic examination will be performed if indicated. Normal [facility] Comment on above: Performed By: #### TRACY CONNER DRUGRPD #### [facility] [address] [place] [address] Scottie Lanette Glucose [Mass/Vol] Negative Normal NEGATIVE [facility] Comment on above: Performed By: #### TRACY CONNER DRUGRPD #### [facility] [address] [place] [address] Scottie Lanette Ketones Ql (U) 15 mg/dl Normal NEGATIVE [facility] Comment on above: Performed By: #### TRACY CONNER DRUGRPD #### [facility] [address] [place] [address] Scottie Lanette Nitrite Ql (U) Negative Normal NEGATIVE [facility] Comment on above: Performed By: #### TRACY CONNER DRUGRPD #### [facility] [address] [place] [address] Scottie Lanette pH (Bld) 7.0 Normal 5-9 [facility] Comment on above: Performed By: #### TRACY CONNER DRUGRPD #### [facility] [address] [place] [id number] Scottierandell Gama Protein (U) [Mass/Vol] Negative Normal [facility] Comment on above: Performed By: #### TRACY CONNER DRUGRPD #### [facility] [address] [place], [place] [phone] Scottie Gama SPEC GRAVITY 1.020 Normal 1.005-<=1.025 [facility] Comment on above: Performed By: #### TRACY CONNER DRUGRPD #### [facility] [address] [place], [place] [phone] Scottie Gama UR MICRO IND INDICATED Normal [facility] Comment on above: Performed By: #### TRACY CONNER DRUGRPD #### [facility] [address] [place], [place] [address] Scottie Gama Urobilinogen Qn (U) 0.2 EU/dl Normal [facility] Comment on above: Performed By: #### TRACY CONNER DRUGRPD #### [facility] [address] [place], [place] [address] Scottierandell Gama WBC (Bld) [#/Vol] Negative Normal NEGATIVE [facility] Comment on above: Performed By: #### TRACY CONNER, DRUGRPD #### [facility] [address] [place], [place] [address] Scottie Lanette ETHANOL (BLD ALC)on 06-03-19 20 Ethanol [Mass/Vol] mg/dL Normal [facility] Comment on above: Performed By: #### S ALYC, ACET, ETH #### [facility] [address] [place], [place] [address] Scottie Lanette Ethanol [Mass/Vol] NOTE: 80 mg/dl is the legal limit for a blood alcohol level Normal [facility] Comment on above: Performed By: #### S ALYC, ACET, ETH #### [facility] [address] [place], [place] [address] Scottie Gama URon 06-03-2019 , QUAL Negative Normal NEGATIVE [facility] Comment on above: Performed By: #### P REGU #### [facility] [address] [place], [place] [id number] Scottie Gama PROF 14(COMP METB)on 020 Albumin [Mass/Vol] 4.3 g/dL Normal 3.5-5.0 [facility] Comment on above: Performed By: #### C MP #### [facility] [address] [place], [place] [id number] Scottierandell Gama Albumin/Globulin [Mass ratio] 1.3 {ratio} Normal [facility] Comment on above: Performed By: #### C MP #### [facility] [address] [place], [place] [id number] Scottie Lanette ALP [Catalytic activity/Vol] 73 U/L Critically low 130-525 [facility] Comment on above: Performed By: #### C MP #### [facility] [address] [place] [address] Scottie Lanette ALT [Catalytic activity/Vol] 18 U/L Normal 9-52 [facility] Comment on above: Performed By: #### C MP #### [facility] [address] [place], [place] [id number] Scottie Lanette Anion gap [Moles/Vol] 15.7 mmol/L Normal [facility] Comment on above: Performed By: #### C MP #### [facility] [address] [place], [place] [id number] Scottie Lanette AST [Catalytic activity/Vol] 16 U/L Normal 14-36 [facility] Comment on above: Performed By: #### C MP #### [facility] [address] [place], [place] [id number] Scottie Lanette Bilirubin Ql (U) 0.3 mg/dL Normal 0.2-1.3 [facility] Comment on above: Performed By: #### C MP #### [facility] [address] [place], [place] [id number] Scottie Lanette Calcium [Mass/Vol] 9.5 mg/dL Normal 8.4-10.2 [facility] Comment on above: Performed By: #### C MP #### [facility] [address] [place], [place] [address] Scottie Lanette Chloride [Moles/Vol] 102 mmol/L Normal 98-107 [facility] Comment on above: Performed By: #### C MP #### [facility] [address] [id number] Scottie Lanette CO2 [Moles/Vol] 22.8 mmol/L Normal 22.0-30.0 [facility] Comment on above: Performed By: #### C MP #### [facility] [address] [id number] Scottie Lanette Creatinine [Mass/Vol] 0.76 mg/dL Normal 0.52-1.04 [facility] Comment on above: Performed By: #### C MP #### [facility] [address] [id number] Scottie Lanette Globulin (S) [Mass/Vol] 3.3 g/dL Normal [facility] Comment on above: Performed By: #### C MP #### [facility] [address] [id number] Scottie Lanette Glucose [Mass/Vol] 122 mg/dL Critically high 74-106 [facility] [place] Comment on above: Performed By: #### C MP #### [facility] [address] [id number] Scottie Lanette Potassium [Moles/Vol] 3.5 mmol/L Normal 3.4-5.0 [facility] Comment on above: Performed By: #### C MP #### [facility] [address] [id number] Scottie Lanette Protein [Mass/Vol] 7.6 g/dL Normal 6.1-8.2 [facility] Comment on above: Performed By: #### C MP #### [facility] [address] [place], [place] [address] Scottie Lanette Sodium [Moles/Vol] 137 mmol/L Normal 137-145 [facility] Comment on above: Performed By: #### C MP #### [facility] [address] [place] [address] Scottie Lanette Urea nitrogen [Mass/Vol] 12.0 mg/dL Normal 6.4-19.3 [facility] Comment on above: Performed By: #### C MP #### [facility] [address] [place] [address] Scottie Lanette Urea nitrogen/Creatinine [Mass ratio] 15.8 mg/mg Normal [facility] Comment on above: Performed By: #### C MP #### [facility] [address] [place] [address] Scottie Lanette SALICYLATEon 06-03-2019 SALICYLATE 1.3 mg/dL Normal <=20.0 [facility] Comment on above: Performed By: #### S ALYC, ACET, ETH #### [facility] [address] [place] [address] Scottie Lanette URINE MICROSCOPIC ONLYon Bacteria LM.HPF (Urine sed) [#/Area] TRACE Normal NONE SEEN The [facility] Comment on above: Performed By: #### Michael MARTINES UMAMOR, DRUGRPD #### [facility] [address] [place] [address] Scottie Lanette CAST NONE SEEN Normal NONE SEEN [facility] Comment on above: Performed By: #### Michael MARTINES UMICRO, DRUGRPD #### [facility] [address] [place] [address] Scottie Lanette Crystals LM Nom (Urine sed) NONE SEEN Normal NONE SEEN [facility] Comment on above: Performed By: #### TRACY CONNER, DRUGRPD #### [facility] [address] [place] [address] Scottie Lanette CULTURE NOT INDICATED Normal [facility] Comment on above: Performed By: #### Michael RUFernanda UMICESHA, DRUGRPD #### [facility] [address] [place] [address] Csottie Lanette Epithelial cells LM.HPF (Urine sed) [#/Area] RARE Normal [facility] Comment on above: Performed By: #### E RUR, UMICRO, DRUGRPD #### [facility] [address] [place], [place] [address] Scottie Lanette MUCOUS NONE SEEN Normal NONE SEEN [facility] Comment on above: Performed By: #### TRACY CONNER DRUGRPD #### [facility] [address] [place], [place] [address] Scottie Lanette RBC (U) [#/Vol] 0-2 Normal 0-2 [facility] Comment on above: Performed By: #### TRACY CONNER DRUGRPD #### [facility] [address] [place], [place] [address] Scottie Lanette WBC (Bld) [#/Vol] 0-2 Normal NONE SEEN The [place] [facility] Comment on above: Performed By: #### TRACY CONNER DRUGRPD #### [facility] [address] [place], [place] [address] Scottie Lanette Vital Signs Date Time Vital Sign Value Performing Clinician Facility 02-16-2025 13:11-0400 Body mass index (BMI) [Ratio] 35.04 kg/m2 Shahla Reynolds INVESTIGATOR CLAIMS Work Phone: [facility] 02-16-2025 13:11-0400 Body weight 89.72 kg Shahla Reynolds INVESTIGATOR CLAIMS Work Phone: [facility] 02-16-2025 13:11-0400 Diastolic blood pressure 82 mm[Hg] Shahla Reynolds INVESTIGATOR CLAIMS Work Phone: [facility] 02-16-2025 13:11-0400 Systolic blood pressure 130 mm[Hg] Shahla Contily INVESTIGATOR CLAIMS Work Phone: [facility] 02-02-2025 [id number] Body mass index (BMI) [Ratio] 33.8 kg/m2 Shahla Reynolds INVESTIGATOR CLAIMS Work Phone: [facility] 02-02-2025 09:[id number] Body weight 86.55 kg Shahla Reynolds INVESTIGATOR CLAIMS Work Phone: [facility] 02-02-2025 09:22-0400 Diastolic blood pressure 78 mm[Hg] Shahla Gail INVESTIGATOR CLAIMS Work Phone: [facility] 02-02-2025 09:22-0400 Systolic blood pressure 116 mm[Hg] Shahla Pierceerly INVESTIGATOR CLAIMS Work Phone: [facility] 01-20-2025 09:44-0400 Body mass index (BMI) [Ratio] 33.13 kg/m2 Leslie Allie DO Work Phone: [facility] 01-20-2025 09:44-0400 Body weight 84.82 kg Leslie Allie DO Work Phone: [facility] 01-20-2025 09:44-0400 Diastolic blood pressure 76 mm[Hg] Leslie Allie DO Work Phone: [facility] 01-20-2025 09:44-0400 Systolic blood pressure 118 mm[Hg] Leslie Allie DO Work Phone: [facility] 01-05-2025 13:49-0400 Body mass index (BMI) [Ratio] 31.89 kg/m2 Leslie Allie DO Work Phone: [facility] 01-05-2025 13:49-0400 Body weight 81.65 kg Leslie Allie DO Work Phone: [facility] 01-05-2025 13:49-0400 Diastolic blood pressure 74 mm[Hg] Leslie Allie DO Work Phone: [facility] 01-05-2025 13:49-0400 Systolic blood pressure 110 mm[Hg] Leslie Allie DO Work Phone: [facility] 01-04-2025 09:20-0400 Body height 160 cm Sachin Rojo MD Work Phone: [facility] 01-04-2025 09:20-0400 Body mass index (BMI) [Ratio] 32.18 kg/m2 Sachin Rojo MD Work Phone: [facility] 01-04-2025 09:20-0400 Body weight 82.37 kg Sachin Rojo MD Work Phone: [facility] 01-04-2025 09:20-0400 Diastolic blood pressure 87 mm[Hg] Sachin Rojo MD Work Phone: [facility] 01-04-2025 09:20-0400 Heart rate 104 /min Sachin Rojo MD Work Phone: [facility] 01-04-2025 09:20-0400 Systolic blood pressure 126 mm[Hg] Sachin Rojo MD Work Phone: [facility] 12-21-2024 11:55-0400 Body mass index (BMI) [Ratio] 30.82 kg/m2 Tiffani JIMENEZ Work Phone: [facility] 12-21-2024 11:55-0400 Body weight 78.93 kg Tiffani Henriquez PA Work Phone: [facility] 12-21-2024 11:55-0400 Diastolic blood pressure 70 mm[Hg] Tiffani Henriquez PA Work Phone: [facility] 12-21-2024 11:55-0400 Systolic blood pressure 120 mm[Hg] Tiffani Henriquez PA Work Phone: [facility] 11-22-2024 10:26-0400 Body mass index (BMI) [Ratio] 28.13 kg/m2 Leslie Allie DO Work Phone: [facility] 11-22-2024 10:26-0400 Body weight 72.03 kg Leslie Allie DO Work Phone: [facility] 11-22-2024 10:26-0400 Diastolic blood pressure 78 mm[Hg] Leslie Allie DO Work Phone: [facility] 11-22-2024 10:26-0400 Systolic blood pressure 120 mm[Hg] Leslie Allie DO Work Phone: [facility] 10-18-2024 12:48-0400 Diastolic blood pressure 80 mm[Hg] Tiffani Henriquez BARBARA Work Phone: [facility] 10-18-2024 12:48-0400 Systolic blood pressure 128 mm[Hg] Tiffani Henriquez PA Work Phone: [facility] 10-18-2024 12:01-0400 Body mass index (BMI) [Ratio] 26.26 kg/m2 Tiffani Henriquez PA Work Phone: [facility] 10-18-2024 12:01-0400 Body weight 67.25 kg Tiffani Henriquez PA Work Phone: [facility] 09-20-2024 13:28-0400 Body mass index (BMI) [Ratio] 25.51 kg/m2 Leslie Allie DO Work Phone: [facility] 09-20-2024 13:28-0400 Body weight 65.32 kg Leslie Allie DO Work Phone: [facility] 09-20-2024 13:28-0400 Diastolic blood pressure 86 mm[Hg] Leslie Allie DO Work Phone: [facility] 09-20-2024 13:28-0400 Systolic blood pressure 118 mm[Hg] Leslie Allie DO Work Phone: [facility] 08-19-2024 13:41-0400 Body mass index (BMI) [Ratio] 25.69 kg/m2 [facility] 08-19-2024 13:41-0400 Body weight 65.77 kg [facility] 08-19-2024 13:41-0400 Diastolic blood pressure 80 mm[Hg] [facility] 08-19-2024 13:41-0400 Systolic blood pressure 126 mm[Hg] [facility] 07-12-2024 14:48-0500 Body mass index (BMI) [Ratio] 26.24 kg/m2 Leslie Allie DO Work Phone: [facility] 07-12-2024 14:48-0500 Body weight 67.19 kg Leslie Allie DO Work Phone: [facility] 07-12-2024 14:48-0500 Diastolic blood pressure 70 mm[Hg] Leslie Allie DO Work Phone: [facility] 07-12-2024 14:48-0500 Systolic blood pressure 110 mm[Hg] Leslie Allie DO Work Phone: [facility] 06-21-2024 16:16-0500 Body mass index (BMI) [Ratio] 25.69 kg/m2 Tiffani JIMENEZ Work Phone: [facility] 06-21-2024 16:16-0500 Body weight 65.77 kg Tiffani JIMENEZ Work Phone: [facility] 06-21-2024 16:16-0500 Diastolic blood pressure 76 mm[Hg] Tiffani JIMENEZ Work Phone: [facility] 06-21-2024 16:16-0500 Systolic blood pressure 104 mm[Hg] Tiffani JIMENEZ Work Phone: [facility] 04-19-2024 14:03-0500 Body mass index (BMI) [Ratio] 28.84 kg/m2 Leslie Allie DO Work Phone: [facility] 04-19-2024 14:03-0500 Body weight 73.85 kg Leslie Allie DO Work Phone: [facility] 04-19-2024 14:03-0500 Diastolic blood pressure 78 mm[Hg] Leslie Allie DO Work Phone: [facility] 04-19-2024 14:03-0500 Systolic blood pressure 130 mm[Hg] Leslie Allie DO Work Phone: [facility] 04-12-2024 13:49-0500 Body mass index (BMI) [Ratio] 28.52 kg/m2 Leslie Allie DO Work Phone: [facility] 04-12-2024 13:49-0500 Body weight 73.03 kg Leslie Allie DO Work Phone: [facility] 04-12-2024 13:49-0500 Diastolic blood pressure 72 mm[Hg] Leslie Allie DO Work Phone: [facility] 04-12-2024 13:49-0500 Systolic blood pressure 120 mm[Hg] Leslie Allie DO Work Phone: [facility] 03-24-2024 15:17-0500 Body mass index (BMI) [Ratio] 26.75 kg/m2 Tiffani Florence PA Work Phone: [facility] 03-24-2024 15:17-0500 Body weight 68.49 kg Tiffani Florence PA Work Phone: [facility] 03-24-2024 15:17-0500 Diastolic blood pressure 68 mm[Hg] Tiffani Florence PA Work Phone: [facility] 03-24-2024 15:17-0500 Systolic blood pressure 116 mm[Hg] Tiffani Henriquez PA Work Phone: [facility] 03-10-2024 14:33-0400 Body mass index (BMI) [Ratio] 26.57 kg/m2 Leslie Allie DO Work Phone: [facility] 03-10-2024 14:33-0400 Body weight 68.04 kg Leslie Allie DO Work Phone: [facility] 03-10-2024 14:33-0400 Diastolic blood pressure 70 mm[Hg] Leslie Allie DO Work Phone: [facility] 03-10-2024 14:33-0400 Systolic blood pressure 120 mm[Hg] Leslie Allie DO Work Phone: [facility] 02-26-2024 10:20-0400 Body mass index (BMI) [Ratio] 25.51 kg/m2 Tiffani Florence PA Work Phone: [facility] 02-26-2024 10:20-0400 Body weight 65.32 kg Tiffani Florence PA Work Phone: [facility] 02-26-2024 10:20-0400 Diastolic blood pressure 78 mm[Hg] Tiffani Florence PA Work Phone: [facility] 02-26-2024 10:20-0400 Systolic blood pressure 120 mm[Hg] Tiffani JIMENEZ Work Phone: [facility] 02-11-2024 15:08-0400 Body mass index (BMI) [Ratio] 24.23 kg/m2 Leslie Allie DO Work Phone: [facility] 02-11-2024 15:08-0400 Body weight 62.05 kg Leslie Allie DO Work Phone: [facility] 02-11-2024 15:08-0400 Diastolic blood pressure 72 mm[Hg] Leslie Allie DO Work Phone: [facility] 02-11-2024 15:08-0400 Systolic blood pressure 112 mm[Hg] Leslie Allie DO Work Phone: [facility] 02-09-2024 14:57-0400 Body height 160 cm Sachin Rojo MD Work Phone: [facility] 02-09-2024 14:57-0400 Body mass index (BMI) [Ratio] 24.21 kg/m2 Sachin Rojo MD Work Phone: [facility] 02-09-2024 14:57-0400 Body weight 62 kg Sachin Rojo MD Work Phone: [facility] 02-09-2024 14:57-0400 Diastolic blood pressure 75 mm[Hg] Sachin Rojo MD Work Phone: [facility] 02-09-2024 14:57-0400 Heart rate 94 /min Sachin Rojo MD Work Phone: [facility] 02-09-2024 14:57-0400 Systolic blood pressure 131 mm[Hg] Sachin Rojo MD Work Phone: [facility] 01-28-2024 13:45-0400 Body mass index (BMI) [Ratio] 23.34 kg/m2 Leslie Allie DO Work Phone: [facility] 01-28-2024 13:45-0400 Body weight 59.76 kg Leslie Allie DO Work Phone: [facility] 01-28-2024 13:45-0400 Diastolic blood pressure 74 mm[Hg] Leslie Allie DO Work Phone: [facility] 01-28-2024 13:45-0400 Systolic blood pressure 118 mm[Hg] Leslie Allie DO Work Phone: [facility] 01-11-2022 14:35-0400 Body height 162.56 cm Aracelis Wing Other [employer] Other 01-11-2022 14:35-0400 Body mass index (BMI) [Ratio] 20.42 kg/m2 Aracelis Wing Other [employer] Other 01-11-2022 14:35-0400 Body temperature 98 [degF] Aracelis Wing Other [employer] Other 01-11-2022 14:35-0400 Body weight 53.98 kg Aracelis Wing Other [employer] Other 01-11-2022 14:35-0400 Diastolic blood pressure 84 mm[Hg] Aracelis Wing Other [employer] Other 01-11-2022 14:35-0400 Respiratory rate 20 /min Aracelis Wing Other [employer] Other 01-11-2022 14:35-0400 SaO2% (BldA) [Mass fraction] 100 % Aracelis Wing Other [employer] Other 01-11-2022 14:35-0400 Systolic blood pressure 141 mm[Hg] Aracelis Wing Other [facility] [employer] Other Encounters Encounter Date Encounter Type Care Provider Facility Start: 02-16-2025 End: 02-16-2025 Bamboo flowsheet Shahla Reynolds INVESTIGATOR CLAIMS Work Phone: [facility] Start: 02-16-2025 End: 02-16-2025 Bamboo flowsheet Shahla Gail INVESTIGATOR CLAIMS Work Phone: [facility] Start: 02-16-2025 End: 02-16-2025 ambulatory SHAHLA GAIL Not Available Start: 02-16-2025 End: 02-16-2025 flow sheet Shahla Gail INVESTIGATOR CLAIMS Work Phone: [facility] Comment on above: 35 weeks gestation o f ([facility]); Third trimester ([facility]); 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 Start: 02-03-2025 End: 02-03-2025 ambulatory [facility] Start: 02-02-2025 End: 02-02-2025 Bamboo flowsheet Shahla Gail INVESTIGATOR CLAIMS Work Phone: [facility] Start: 02-02-2025 End: 02-02-2025 Bamboo flowsheet Shahla Gail INVESTIGATOR CLAIMS Work Phone: [facility] Start: 02-02-2025 End: 02-02-2025 flow sheet Shahla Gail INVESTIGATOR CLAIMS Work Phone: [facility] Comment on above: Third trimester preg chapito ([facility]); 33 weeks gestation of ([facility]) Start: 02-02-2025 End: 02-02-2025 ambulatory SHAHLA GAIL Not Available Start: 01-20-2025 End: 01-20-2025 Bamboo flowsheet [facility] Work Phone: [facility] Start: 01-20-2025 End: 01-20-2025 Bamboo flowsheet Leslie Allie DO Work Phone: [facility] Start: 01-20-2025 End: 01-20-2025 ambulatory LESLIE ALLIE Not Available Start: 01-20-2025 End: 01-20-2025 flow sheet Leslie Allie DO Work Phone: [facility] Comment on above: Third trimester preg chapito ([facility]); 31 weeks gestation of ([facility]) Start: 01-05-2025 End: 01-05-2025 Bamboo flowsheet Leslie Allie DO Work Phone: [facility] Start: 01-05-2025 End: 01-05-2025 Bamboo flowsheet Leslie Allie DO Work Phone: [facility] Start: 01-05-2025 End: 01-05-2025 ambulatory LESLIE ALLIE Not Available Start: 01-05-2025 End: 01-05-2025 flow sheet Leslie Allie DO Work Phone: [facility] Comment on above: Third trimester preg chapito ([facility]); 29 weeks gestation of ([facility]); 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 Start: 01-04-2025 End: 01-04-2025 Office consultation new/estab patient 60 min Sachin Rojo MD Work Phone: [facility] Comment on above: Encounter for suspec jacek anomaly ruled out (Primary Dx); cardiac echogenic focus, antepartum, fetus 1; 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, single or unspecified fetus; Echogenic intracardiac focus of fetus on ultrasound Start: 01-04-2025 End: 01-04-2025 Orders Only Oren Carrizales RN [facility] Comment on above: Club foot of fetus a ffecting antepartum care of mother, single or unspecified fetus (Primary Dx); Echogenic intracardiac focus of fetus on ultrasound Start: 12-21-2024 End: 12-21-2024 Bamboo flowsheet Tiffani JIMENEZ Work Phone: [facility] Start: 12-21-2024 End: 12-21-2024 Bamboo flowsheet Tiffani JIMENEZ Work Phone: [facility] Start: 12-21-2024 End: 12-21-2024 ambulatory TIFFANI HENRIQUEZ Not Available Start: 12-21-2024 End: 12-21-2024 flow sheet Tiffani JIMENEZ Work Phone: [facility] Comment on above: Second trimester pre gnancy ([facility]); 27 weeks gestation of ([facility]); size inconsistent with dates ([facility]) Start: 12-20-2024 End: 12-20-2024 Clinisync Result Encounter Leslie Allie DO Work Phone: [facility] Unsolicited Start: 12-20-2024 End: 12-20-2024 Clinisync Result Encounter Leslie Allie DO Work Phone: [facility] Unsolicited Start: 11-25-2024 End: 11-25-2024 Chart abstracting Sachin Rojo MD Work Phone: [facility] Start: 11-25-2024 End: 11-25-2024 Telephone encounter Edie Smith RN [facility] Start: 11-22-2024 End: 11-22-2024 flow sheet Leslie Allie DO Work Phone: [facility] Comment on above: Second trimester pre gnancy ([facility]); Abnormal finding on ultrasound; 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; Diabetes mellitus screening Start: 11-22-2024 End: 11-22-2024 ambulatory LESLIE KELLEY Not Available Start: 10-18-2024 End: 10-18-2024 Bamboo flowsheet Tiffani JIMENEZ Work Phone: [facility] Start: 10-18-2024 End: 10-19-2024 Bamboo flowsheet Tiffani JIMENEZ Work Phone: [facility] Start: 10-18-2024 End: 10-19-2024 External Result Encounter Tiffani JIMENEZ Work Phone: [facility] Unsolicited Start: 10-18-2024 End: 10-18-2024 flow sheet Tiffani Henriquez PA Work Phone: [facility] Comment on above: Second trimester pre gnancy; 18 weeks gestation of ; Screening, , for anatomic survey; STD exposure Start: 10-18-2024 End: 10-18-2024 ambulatory TIFFANI HENRIQUEZ Not Available Start: 09-20-2024 End: 09-20-2024 Bamboo flowsheet Leslie Allie DO Work Phone: [facility] Start: 09-20-2024 End: 09-20-2024 Bamboo flowsheet Leslie Allie DO Work Phone: [facility] Start: 09-20-2024 End: 09-20-2024 flow sheet Leslie Allie DO Work Phone: [facility] Comment on above: Second trimester pre gnancy; 14 weeks gestation of Start: 09-20-2024 End: 09-20-2024 ambulatory LESLIE ALLIE Not Available Start: 08-19-2024 End: 08-19-2024 Office outpatient visit 5 minutes [facility] Comment on above: GA: 9w3d Start: 08-19-2024 End: 08-19-2024 ambulatory TIFFANI HENRIQUEZ Not Available Start: 07-14-2024 End: 07-14-2024 Clinisync Result Encounter Leslie Allie DO Work Phone: [facility] Department Unsolicited Start: 07-14-2024 End: 07-14-2024 Clinisync Result Encounter Leslie Allie DO Work Phone: [facility] Unsolicited Start: 07-12-2024 End: 07-12-2024 ambulatory LESLIE ALLIE Not Available Start: 07-12-2024 End: 07-12-2024 Office outpatient visit 15 minutes Leslie Allie DO Work Phone: [facility] Comment on above: Missed menses Start: 07-12-2024 End: 07-12-2024 Clinisync Result Encounter Leslie Allie DO Work Phone: [facility] Unsolicited Start: 07-12-2024 End: 07-12-2024 Clinisync Result Encounter Leslie Allie DO Work Phone: [facility] Unsolicited Start: 06-21-2024 End: 06-21-2024 ambulatory TIFFANI HENRIQUEZ Not Available Start: 06-21-2024 End: 06-21-2024 care visit Tiffani Henriquez PA Work Phone: [facility] Comment on above: 6 weeks f ollow-up Start: 04-23-2024 End: 04-23-2024 Clinisync Result Encounter Leslie Allie DO Work Phone: [facility] Unsolicited Start: 04-23-2024 End: 04-23-2024 Clinisync Result Encounter Leslie Allie DO Work Phone: [facility] Unsolicited Start: 04-21-2024 End: 04-21-2024 Clinisync Result Encounter Leslie Allie DO Work Phone: [facility] Unsolicited Start: 04-21-2024 End: 04-21-2024 Clinisync Result Encounter Leslie Allie DO Work Phone: [facility] Unsolicited Start: 04-19-2024 End: 04-19-2024 Bamboo flowsheet Leslie Allie DO Work Phone: [facility] Start: 04-19-2024 End: 04-19-2024 Bamboo flowsheet Leslie Allie DO Work Phone: [facility] Start: 04-19-2024 End: 04-19-2024 flow sheet Leslie Allie DO Work Phone: [facility] Comment on above: 37 weeks gestation o f ; Third trimester Start: 04-19-2024 End: 04-19-2024 ambulatory LESLIE ALLIE [...] Unsolicited Start: 03-24-2024 End: 03-24-2024 flow sheet Tiffnai JIMENEZ Work Phone: [facility] Comment [...] HENRIQUEZ Not Available Start: 02-11-2024 End: 02-11-2024 flow sheet Leslie Allie DO Work Phone: [facility] Comment on above: Third trimester preg chapito Start: 02-11-2024 End: 02-11-2024 Bamboo flowsheet Leslie Allie DO Work Phone: [facility] Start: 02-11-2024 End: 02-11-2024 Bamboo flowsheet Leslie Allie DO Work Phone: [facility] Start: 02-09-2024 End: 02-09-2024 Office consultation new/estab patient 40 min Sachin Rojo MD Work Phone: [facility] Comment on above: Encounter for suspec jacek anomaly ruled out (Primary Dx) Start: 02-09-2024 End: 02-09-2024 ambulatory LESLIE R [facility] Start: 02-05-2024 End: 02-05-2024 Orders Only Not In System Ref Prov [facility] Start: 01-28-2024 End: 01-28-2024 Bamboo flowsheet Leslie Allie DO Work Phone: [facility] Start: 01-28-2024 End: 01-28-2024 Bamboo flowsheet Leslie Allie DO Work Phone: [facility] Start: 01-28-2024 End: 01-28-2024 flow sheet Leslie Allie DO Work Phone: [facility] Comment on above: 26 weeks gestation o f Start: 01-14-2024 End: 01-14-2024 Clinisync Result Encounter Leslie Allie DO Work Phone: [facility] External Department Unsolicited Start: 01-14-2024 End: 01-14-2024 Clinisync Result Encounter Leslie Allie DO Work Phone: [facility] External Department Unsolicited Start: 10-03-2023 End: 10-06-2023 Orders Only Scanning Provider External [facility] Start: 01-07-2023 Patient encounter status Scanning Ex [facility] Start: 01-11-2022 End: 01-11-2022 ambulatory Aracelis Wing Other [employer] Other Start: 01-11-2022 Office outpatient ne w 30 minutes Aracelis Wing [facility] Start: 06-03-2019 End: 06-03-2019 Patient encounter procedure DANIEL HEWITT Facility:H1 Procedures Date Procedure Procedure Detail Performing Clinician Start: 02-16-2025 Urnls dip stick/tabl et rgnt non-auto w/o micrscp Shahla Reynolds INVESTIGATOR CLAIMS Work Phone: Start: 02-02-2025 Urnls dip stick/tabl et rgnt non-auto w/o micrscp Shahla Reynolds INVESTIGATOR CLAIMS Work Phone: Start: 01-20-2025 Urnls dip stick/tabl et rgnt non-auto w/o micrscp Leslie Allie DO Work Phone: Start: 01-05-2025 Urnls dip stick/tabl et rgnt non-auto w/o micrscp Leslie Allie DO Work Phone: Start: 12-21-2024 Urnls dip stick/tabl et rgnt non-auto w/o micrscp Tiffani JIMENEZ Work Phone: Start: 12-20-2024 [facility] DRUG SCREEN RAPI D (URINE) Leslie Allie DO Work Phone: Start: 11-22-2024 ULTRASOUND OFFICE Not I n System Ref Prov Start: 11-22-2024 Urnls dip stick/tabl et rgnt non-auto w/o micrscp Leslie Allie DO Work Phone: Start: 10-18-2024 RECURRENT VAGINITIS (HTRX) Tiffani JIMENEZ Work Phone: Start: 10-18-2024 Urnls dip stick/tabl et rgnt non-auto w/o micrscp Tiffani JIMENEZ Work Phone: Start: 10-15-2024 Antibody rubella Not In System Ref Prov Start: 10-15-2024 SYPHILIS TOTAL(UNKNO WN SYPHILIS STATUS) Not In System Ref Prov Start: 09-20-2024 Urnls dip stick/tabl et rgnt non-auto w/o micrscp Leslie Allie DO Work Phone: Start: 08-19-2024 End: 08-19-2024 Urnls dip stick/tablet rgnt non-auto w/o micrscp Leslie Allie DO Work Phone: Start: 08-19-2024 ULTRASOUND OFFICE Not I n System Ref Prov Start: 07-14-2024 [facility] PREG QUANT HCG Core y Allie DO Work Phone: Start: 07-12-2024 [facility] PREG QUANT HCG Core y Allie DO Work Phone: Start: 07-12-2024 Urine test visual color cmprsn meths Leslie Allie DO Work Phone: Start: 04-23-2024 ALL CBC WITH AUTO DIFF Leslie Allie DO Work Phone: Start: 04-21-2024 [facility] CBC WITH PLATEL ET NO DIFFERENTIAL Leslie Allie DO Work Phone: Start: 04-19-2024 Urnls dip stick/tabl et rgnt non-auto w/o micrscp Leslie Allie DO Work Phone: Start: 04-12-2024 Urnls dip stick/tabl et rgnt non-auto w/o micrscp Leslie Allie DO Work Phone: Start: 03-31-2024 [facility] TOTAL PROTEIN 24 HOUR URINE Leslie Allie DO Work Phone: Start: 03-30-2024 ALL CBC WITH AUTO DIFF Leslie Allie DO Work Phone: Start: 03-24-2024 Urnls dip stick/tabl et rgnt non-auto w/o micrscp Tiffani Henriquez PA Work Phone: Start: 03-10-2024 Urnls dip stick/tabl et rgnt non-auto w/o micrscp Leslie Allie DO Work Phone: Start: 02-26-2024 Urnls dip stick/tabl et rgnt non-auto w/o micrscp Tiffani JIMENEZ Work Phone: Start: 01-28-2024 Urnls dip stick/tabl et rgnt non-auto w/o micrscp Leslieyissel Fagano DO Work Phone: Start: 01-21-2024 ULTRASOUND OFFICE Not I n System Ref Prov Start: 01-14-2024 ALL CBC WITH AUTO DIFF Leslie Allie DO Work Phone: Start: 12-31-2023 UNLISTED LAB TEST Not I n System Ref Prov Start: 10-24-2023 UNLISTED LAB TEST Not I n System Ref Prov Start: 10-16-2023 Antibody screen Sachin Rojo MD Work Phone: Start: 10-16-2023 Hemoglobin glycosyla jacek a1c Scanning Provider External Start: 10-16-2023 Hepatitis c antibody No t In System Ref Prov Start: 10-16-2023 HIV 1&2 AB/AG SCREEN (P24 AG) Not In System Ref Prov Start: 10-16-2023 Iaad ia hepatitis b surface antigen Not In System Ref Prov Start: 10-16-2023 TYPE AND SCREEN Not In System Ref Prov Start: 10-12-2023 Drug scrn 1+ class nonchromo Not In System Ref Prov Start: 10-03-2023 ULTRASOUND OFFICE Not I n System Ref Prov Start: 10-03-2023 US TRANSVAGINAL Scannin g Provider External Start: 09-23-2023 UNLISTED LAB TEST Not I n System Ref Prov Start: 01-07-2023 Adult depression scr eening assessment Scanning External Plan of Treatment Date Care Activity Detail Author Start: 01-04-2026 Tobacco Screening [facility] Screening [facility] Start: 01-04-2026 End: 01-04-2026 US MFM with or without consult US MFM with or without consult Imaging Routine 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, single or unspecified fetus Echogenic intracardiac focus of fetus on ultrasound Expected: 01/04/2026 (Approximate), Expires: 01/04/2026 [facility] Work Phone: Comment on above: Expected: 01/04/2026 (Approximate), Expires: 01/04/2026 Start: 02-24-2025 End: 02-24-2025 Patient encounter procedure 02/24/2025 2:20 PM EDT Routine [facility] [address] [phone] Shahla Reynolds, INVESTIGATOR CLAIMS [address] [place] [phone] [facility] Start: 02-16-2025 End: 02-16-2025 Patient encounter procedure 02/16/2025 1:00 PM EDT Routine [facility] [address] [place] [phone] Shahla Reynolds, INVESTIGATOR CLAIMS [address] [place] [phone] [facility] Start: 02-08-2025 Adult BMI Screening Adult BMI Screen ing [facility] Start: 02-08-2025 Tobacco Screening Tobacco Screening [facility] Start: 02-03-2025 End: 02-03-2025 Patient encounter procedure 02/03/2025 11:00 AM EDT Appointment [facility] [id number] [address] [place] [address] [facility] Start: 02-02-2025 End: 02-02-2025 Patient encounter procedure [facility] Comment on above: Arrived Start: 01-20-2025 End: 01-20-2025 Patient encounter procedure 01/20/2025 9:00 AM EDT Routine [facility] [address] [place] [phone] Leslie Kelley DO [address] [place] [address] [facility] Start: 01-17-2025 Influenza vaccination Influenza Vacc ine [facility] Start: 01-05-2025 End: 01-05-2025 Patient encounter procedure 01/05/2025 1:40 PM EDT Routine [facility] [address] [place] [phone] Leslie Kelley, [address] [place] [address] [facility] Start: 01-05-2025 End: 01-05-2025 Professional / ancillary services management 01/05/2025 1:00 PM EDT Ancillary Procedure [facility] [place] [facility] [address] [phone] [facility] Start: 01-04-2025 End: 01-04-2025 Patient encounter procedure [facility] Start: 12-21-2024 End: 04-22-2025 US for US OB follow up transabdominal approach Imaging Routine size inconsistent with dates ([facility]) Expected: 12/21/2024, Expires: 04/22/2025 [facility] Work Phone: Comment on above: Expected: 12/21/2024 , Expires: 04/22/2025 Start: 12-21-2024 End: 12-21-2024 Patient encounter procedure [facility] Start: 11-22-2024 End: 11-22-2025 CBC panel - Blood by Automated count CBC Lab Routine Diabetes mellitus screening Expected: 11/22/2024 (Approximate), Expires: 11/22/2025 [facility] Work Phone: Comment on above: Expected: 11/22/2024 (Approximate), Expires: 11/22/2025 Start: 11-22-2024 End: 11-22-2025 Measurement of glucose 1 hour after glucose challenge for glucose tolerance test Glucose tolerance, 1 hour Lab Routine Diabetes mellitus screening Expected: 11/22/2024 (Approximate), Expires: 11/22/2025 [facility] Comment on above: Expected: 11/22/2024 (Approximate), Expires: 11/22/2025 Start: 11-22-2024 End: 11-22-2024 Patient encounter procedure 11/22/2024 10:20 AM EDT Routine [facility] [address] [phone] Leslie Kelley, [address] [place] [address] [facility] Start: 11-22-2024 End: 11-22-2024 Professional / ancillary services management 11/22/2024 9:00 AM EDT Ancillary Procedure [facility] [address] [place] [phone] [facility] Start: 10-18-2024 End: 12-18-2024 Alpha fetoprotein, maternal Alpha fetoprotein, maternal Lab Routine 18 weeks gestation of Expected: 10/18/2024 (Approximate), Expires: 12/18/2024 [facility] Comment on above: Expected: 10/18/2024 (Approximate), Expires: 12/18/2024 Start: 10-18-2024 End: 2025 US for US OB 14+ weeks anatomy scan Imaging Routine Screening, , for anatomic survey Expected: 10/18/2024, Expires: 2025 [facility] Comment on above: Expected: 10/18/2024 , Expires: 2025 Start: 10-18-2024 End: 10-18-2024 Patient encounter procedure [facility] Comment on above: Arrived Start: 09-20-2024 End: 09-20-2024 Patient encounter procedure [facility] Comment on above: Arrived Start: 08-19-2024 End: 08-19-2025 ABO/Rh ABO/Rh Lab Routine Missed menses , unspecified gestational age Expected: 08/19/2024 (Approximate), Expires: 08/19/2025 [facility] Comment on above: Expected: 08/19/2024 (Approximate), Expires: 08/19/2025 Start: 08-19-2024 End: 08-19-2025 Blood type and Indirect antibody screen panel - Blood Type and screen Lab Routine Missed menses , unspecified gestational age Expected: 08/19/2024 (Approximate), Expires: 08/19/2025 [facility] Comment on above: Expected: 08/19/2024 (Approximate), Expires: 08/19/2025 Start: 08-19-2024 End: 08-19-2025 Drugs of abuse panel - Urine by Screen method Rapid drug screen, urine Lab Routine , unspecified gestational age Encounter for supervision of normal first in first trimester Expected: 08/19/2024 (Approximate), Expires: 08/19/2025 [facility] Comment on above: Expected: 08/19/2024 (Approximate), Expires: 08/19/2025 Start: 08-19-2024 End: 08-19-2025 US Pelvis transvaginal [facility] Work Phone: Comment on above: Expected: 08/19/2024 , Expires: 08/19/2025 Start: 07-12-2024 End: 07-12-2024 Patient encounter procedure 07/12/2024 2:30 PM EST Procedure Visit [facility] [address] [place] [phone] Leslie Kelley, [address] [place] [address] [facility] Start: 07-12-2024 End: 07-12-2025 hCG, quantitative, hCG, quantitative, Lab Routine Missed menses Expected: 07/12/2024 (Approximate), Expires: 07/12/2025 [facility] Work Phone: Comment on above: Expected: 07/12/2024 (Approximate), Expires: 07/12/2025 Start: 04-19-2024 End: 04-19-2024 Patient encounter procedure [facility] Comment on above: Arrived Start: 04-12-2024 End: 11-25-2025 Strep B DNA probe, amplification Strep B DNA probe, amplification Lab Routine Third trimester Expected: 04/12/2024 (Approximate), Expires: 04/12/2025 [facility] Work Phone: Comment on above: Expected: 04/12/2024 (Approximate), Expires: 04/12/2025 Start: 04-12-2024 End: 04-12-2024 Patient encounter procedure 04/12/2024 1:30 PM EST Routine [facility] [address] [place] [address] Leslie Kelley, DO [address] [place], [place] [phone] [facility] Start: 03-24-2024 End: 03-24-2024 Patient encounter procedure [facility] Comment on above: Arrived Start: 03-24-2024 End: 03-24-2024 Professional / ancillary services management 03/24/2024 2:00 PM EST Ancillary Procedure [facility] [address] [place] [phone] [facility] Start: 03-10-2024 End: 03-10-2024 Patient encounter procedure [facility] Comment on above: Arrived Start: 03-10-2024 End: 03-10-2025 US biophysical profile w non stress test US biophysical profile w non stress test Imaging Routine SGA (small for gestational age) Expected: 03/10/2024 (Approximate), Expires: 03/10/2025 [facility] Comment on above: Expected: 03/10/2024 (Approximate), Expires: 03/10/2025 Start: 03-10-2024 End: 03-10-2025 US for US OB SCAN FOR GROWTH Imaging Routine SGA (small for gestational age) Expected: 03/10/2024 (Approximate), Expires: 03/10/2025 [facility] Work Phone: Comment on above: Expected: 03/10/2024 (Approximate), Expires: 03/10/2025 Start: 02-26-2024 End: 02-26-2024 Patient encounter procedure [facility] Comment on above: Arrived Start: 02-11-2024 End: 02-11-2024 Patient encounter procedure 02/11/2024 2:40 PM EDT Routine [facility] [address] [place] [address] Leslie Kelley, DO [address] [place] [address] [facility] Start: 02-09-2024 End: 02-09-2024 Patient encounter procedure [facility] Start: 01-28-2024 End: 01-28-2024 Patient encounter procedure 01/28/2024 1:20 PM EDT Routine [facility] [address] [facility] [place] [phone] Leslie Kelley, DO [address] [place] [address] [facility] Start: 01-19-2024 DTaP,Tdap and Td Vaccines (1 - Tdap) DTaP,Tdap and Td Vaccines (1 - Tdap) [facility] Start: 2024 Influenza vaccination Influenza Vacc ine [facility] Start: 01-08-2024 Adult BMI Screening Adult BMI Screen ing [facility] Start: 01-08-2024 Depression Screening Depression Scre ening [facility] Start: 01-08-2024 Tobacco Screening Tobacco Screening [facility] Start: 2021 MCV (1 - 2-dose series) MCV (1 - 2-d ose series) [facility] Start: 01-19-2020 HPV Vaccines (1 - 3-dose series) HPV Vaccines (1 - 3-dose series) [facility] Start: 2018 Varicella Vaccines ( 1 of 2 - 13+ 2-dose series) Varicella Vaccines (1 of 2 - 13+ 2-dose series) [facility] Start: 01-19-2012 DTaP,Tdap and Td Vaccines (1 - Tdap) DTaP,Tdap and Td Vaccines (1 - Tdap) [facility] Start: 2006 Hepatitis A Vaccines (1 of 2 - 2-dose series) Hepatitis A Vaccines (1 of 2 - 2-dose series) [facility] Start: 2006 MMR Vaccines (1 of 2 - Standard series) MMR Vaccines (1 of 2 - Standard series) [facility] Start: 2005 Hepatitis B Vaccines (1 of 3 - 3-dose series) Hepatitis B Vaccines (1 of 3 - 3-dose series) [facility] Bacteria identified in Urine by Culture Urine culture Microbiology Routine Missed menses Ordered: 08/19/2024 [facility] Comment on above: Ordered: 08/19/2024 CBC W Auto Different ial panel - Blood CBC and differential Lab Routine Missed menses , unspecified gestational age Ordered: 08/19/2024 [facility] Comment on above: Ordered: 08/19/2024 CHLAMYDIA TRACHOMATI S (GENITO/STI) CHLAMYDIA TRACHOMATIS (GENITO/STI) Lab Routine STD exposure Ordered: 10/18/2024 [facility] Comment on above: Ordered: 10/18/2024 Hemoglobin A1c/Hemoglobin.total in Blood Hemoglobin A1c Lab Routine Missed menses , unspecified gestational age Ordered: 08/19/2024 [facility] Comment on above: Ordered: 08/19/2024 Hepatitis B virus surface Ag [Presence] in Serum or Plasma by Immunoassay Hepatitis B surface antigen Lab Routine Missed menses , unspecified gestational age Ordered: 08/19/2024 [facility] Comment on above: Ordered: 08/19/2024 Hepatitis C virus Ab [Presence] in Serum or Plasma by Immunoassay Hepatitis C antibody Lab Routine Missed menses , unspecified gestational age Ordered: 08/19/2024 [facility] Comment on above: Ordered: 08/19/2024 HIV-1/HIV-2 antigen/antibody combination immunoassay HIV-1 and HIV-2 antibodies Lab Routine Missed menses , unspecified gestational age Ordered: 08/19/2024 [facility] Comment on above: Ordered: 08/19/2024 Neisseria gonorrhoea e DNA [Presence] in Unspecified specimen by NIK with probe detection Neisseria gonorrhea DNA probe, direct Lab Routine STD exposure Ordered: 10/18/2024 [facility] Comment on above: Ordered: 10/18/2024 Reagin Ab [Presence] in Serum by RPR RPR Lab Routine Missed menses , unspecified gestational age Ordered: 08/19/2024 [facility] Comment on above: Ordered: 08/19/2024 Rubella antibody, IgG Rubella an tibody, IgG Lab Routine Missed menses , unspecified gestational age Ordered: 08/19/2024 [facility] Comment on above: Ordered: 08/19/2024 SURESWAB(R) ADVANCED VAGINITIS PLUS, TMA SURESWAB(R) ADVANCED VAGINITIS PLUS, TMA Pathology and Cytology Routine STD exposure Ordered: 10/18/2024 [facility] Work Phone: Comment on above: Ordered: 10/18/2024 End: 01-04-2026 Unlisted Lab Test Unlisted Lab Test Lab Routine 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, single or unspecified fetus Echogenic intracardiac focus of fetus on ultrasound 1 Occurrences starting 01/04/2025 until 01/04/2026 [facility] Work Phone: Comment on above: 1 Occurrences starti ng 01/04/2025 until 01/04/2026 Payers Date Payer Category Payer Medicaid [place] [employer] [id number] 2024 Medicaid (Managed Care) [employer] [id number] 2023 Medicaid [id number]. [id number] 2023 Medicaid [id number] 2017 [facility] [id number]. [id number] 2017 [facility] Managed Care - Other [employer] [id number]. [id number] 2017 Unknown [id number]. 1.13.693.2. [id number] 2005 Unknown [id number] 2.16.840.1.342176.3.579.2. 1286 2005 Unknown [id number] 2.16.840.1.047992.3.579.2. 1286 2005 Unknown [id number] 2.16.840.1.099284.3.579.2. 128 2005 Unknown [id number] 2.16.840.1.121995.3.579.2. 128 2005 Unknown [id number] 2.16.840.1.057094.3.579.2. 128 2005 Unknown [id number] 2.16.840.1.206065.3.579.2. 1258 2005 Unknown [id number] 2.16.840.1.878686.3.579.2. 9 2005 Unknown [id number] 2.16.840.1.104052.3.579.2. 125 2005 Unknown [id number] 2.16.840.1.899073.3.579.2. 1258 2005 Unknown [id number] 2.16.840.1.575387.3.579.2. 9 2005 Unknown [id number] 2.16.840.1.144649.3.579.2. 1259 2005 Unknown [id number] 2.16.840.1.633457.3.579.2. 125 2005 Unknown [id number] 2.16.840.1.970970.3.579.2. 125 2005 Unknown [id number] 2.16.840.1.002419.3.579.2. 1258 2005 Unknown [id number] 2.16.840.1.101483.3.579.2. 1259 2005 Unknown [id number] 2.16.840.1.795901.3.579.2. 1259 2005 Unknown [id number] 2.16.840.1.520819.3.579.2. 1259 2005 Unknown [id number] 2.16.840.1.053387.3.579.2. 1259 2005 Unknown [id number] 2.16.840.1.398684.3.579.2. 1259 2005 Unknown [id number] 2.16.840.1.821997.3.579.2. 1259 2005 Unknown [id number] 2.16.840.1.660660.3.579.2. 1259 2005 Unknown [id number] 2.16.840.1.326800.3.579.2. 1259 2005 Unknown [id number] 2.16.840.1.139132.3.579.2. 1259 1980 Unknown [id number] 2.16.840.1.526689.3.579.2. 593 1959 Unknown [id number] Social History Date Type Detail Facility Start: 01-28-2024 End: 10-21-2024 Sex Assigned At [facility] Other Start: 01-07-2023 End: 01-28-2024 Tobacco smoking status OHIS Never smoked tobacco [facility] Start: 01-07-2023 End: 01-28-2024 Tobacco use and exposure Smokeless tobacco non-user [facility] Start: 02-26-2024 End: 02-16-2025 Alcoholic beverage intake Lifetime non-drinker (finding) [facility] Start: 01-28-2024 End: 10-21-2024 History of Social function [facility] Start: 08-13-2023 [facility] Start: 2005 Sex assigned at Female [facility] Start: 10-02-2023 Gender identity Identifies as female gender (finding) [facility] Start: 10-02-2023 Sexual orientation Heterosexual (finding) [facility] consumption unknown [facility] Do you belong to any clubs or organizations such as holiness groups, unions, fraternal or athletic groups, or school groups? Yes [facility] Are you now , , , , never or living with a partner? Never [facility] How often to you hav e a drink containing alcohol? Never [facility] How many standard dr inks containing alcohol do you have on a typical day? Patient does not drink [facility] Do you feel stress - tense, restless, nervous, or anxious, or unable to sleep at night because your mind is troubled all the time - these days [OSQ] Not at all [facility] Start: 2005 [facility] Start: 12-22-2014 Sex Female (finding) [facility] Clinical Notes 01-11-2022 to 02-16-2025 Shahla Reynolds NP - 02/16/2025 1:00 PM Senia Reynolds NP - 02/02/2025 9:00 AM Cristiano Kovacs, SALLY - 01/20/2025 9:00 AM Rudy Mike, GENERAL LITHOGRAPHIC WORKER - 01/05/2025 1:40 PM EDT Note Date & Type Note Facility 02-16-2025 History of Presen t illness Narrative Reason for Appointment: Patient ID: Cherry Meneses is a 20 y.o. female who presents for Routine Visit Patient presents today for Return OB appointment. MEDICATIONS Current Outpatient Medications Medication Instructions Vit-Fe Fumarate-FA ( Vitamins) 27-0.8 MG tablet Take by mouth ALLERGIES No Known Allergies PROBLEMS Active Ambulatory Problems Diagnosis Date Noted No Active Ambulatory Problems Resolved Ambulatory Problems Diagnosis Date Noted No Resolved Ambulatory Problems No Additional Past Medical History HISTORY PAST MEDICAL HISTORY SOCIAL HISTORY History reviewed. No pertinent past medical history. Social History Tobacco Use Smoking status: Never [...] nursing note reviewed. Exam conducted with a scientific artist present. Vitals: Estimated body mass index is 35.04 kg/m as calculated from the following: Height as of 10/03/23: 5' 3 . Weight as of this encounter: 197 lb 12.8 oz. BP: 130/82 Patient's last menstrual period was 06/14/2024 (approximate). ASSESSMENT & PLAN ICD-10-CM 1. 35 weeks gestation of ([facility]) Z3A.35 POCT urinalysis dipstick manually resulted 2. Third trimester ([facility]) Z34.93 POCT urinalysis dipstick manually resulted 3. 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 Patient is currently 35w2d . Patient states she is doing well but has complaints of being tired due to current . Patient has verbalizes frequent movement. labor precautions was discussed/given and patient was instructed to perform kick counts three times a day. Orders Placed This Encounter Procedures POCT urinalysis dipstick manually resulted Follow Up: Patient is to return to office in 1 week for routine OB appointment. Documented by Shahla Reynolds NP on behalf of: Shahla Reynolds NP documented in this encounter [facility] 02-02-2025 History of Presen t illness Narrative Reason for Appointment: Patient ID: Cherry Meneses is a 20 y.o. female who presents for Routine Visit Patient presents today for Return OB appointment. MEDICATIONS Current Outpatient Medications Medication Instructions Vit-Fe Fumarate-FA ( Vitamins) 27-0.8 MG tablet Take by mouth ALLERGIES No Known Allergies PROBLEMS Active Ambulatory Problems Diagnosis Date Noted No Active Ambulatory Problems Resolved Ambulatory Problems Diagnosis Date Noted No Resolved Ambulatory Problems No Additional Past Medical History HISTORY PAST MEDICAL HISTORY SOCIAL HISTORY History reviewed. No pertinent past medical history. Social History Tobacco Use Smoking status: Never [...] nursing note reviewed. Exam conducted with a scientific artist present. Vitals: Estimated body mass index is 33.8 kg/m as calculated from the following: Height as of 24: 5' 3 . Weight as of this encounter: 190 lb 12.8 oz. BP: 116/78 Patient's last menstrual period was 06/14/2024 (approximate). ASSESSMENT & PLAN ICD-10-CM 1. Third trimester ([facility]) Z34.93 POCT urinalysis dipstick manually resulted 2. 33 weeks gestation of ([facility]) Z3A.33 POCT urinalysis dipstick manually resulted Return OB: Patient presents today for a routine obstetrics appointment. Patient is currently 33w2d . Patient states she is doing well but has complaints of being tired due to current . Patient has verbalizes frequent movement. labor precautions was discussed/given and patient was instructed to perform kick counts three times a day. Orders Placed This Encounter Procedures POCT urinalysis dipstick manually resulted Follow Up: Patient is scheduled with [facility] in [place] for follow up Ultrasound tomorrow. Patient is to return to office in 2 week for routine OB appointment. Documented by Shahla Reynolds NP on behalf of: Shahla Reynolds NP documented in this encounter [facility] 01-20-2025 History of Presen t illness Narrative Reason for Appointment: Patient ID: Cherry Meneess is a 20 y.o. female who presents for Routine Visit Patient presents today for Return OB appointment. MEDICATIONS Current Outpatient Medications Medication Instructions Vit-Fe Fumarate-FA ( Vitamins) 27-0.8 MG tablet Take by mouth ALLERGIES No Known Allergies PROBLEMS Active Ambulatory [...] nursing note reviewed. Exam conducted with a scientific artist present. Vitals: Estimated body mass index is 33.13 kg/m as calculated from the following: Height as of 10/03/23: 5' 3 . Weight as of this encounter: 187 lb. BP: 118/76 Patient's last menstrual period was 06/14/2024 (approximate). ASSESSMENT & PLAN ICD-10-CM 1. Third trimester ([facility]) Z34.93 POCT urinalysis dipstick manually resulted 2. 31 weeks gestation of ([facility]) Z3A.31 Patient presents today for a routine obstetrics appointment. Patient is currently 31w3d with a Estimated Date of Delivery: 03/21/25. Patient was seen at [facility] and confirmed clubfoot left. Patient to returnt to clinic in 2 weeks for return OB. Patient has UDS scheduled with [facility] in [place] on 02/03/25. Documented by Carolynn Kovacs LPN on behalf of: Leslie Kelley DO documented in this encounter [facility] 01-05-2025 History of Presen t illness Narrative Reason for Appointment: Patient ID: Cherry Meneses is a 19 y.o. female who presents for Routine Visit Patient presents today for Return OB appointment. MEDICATIONS Current Outpatient Medications Medication Instructions Vit-Fe Fumarate-FA ( Vitamins) 27-0.8 MG tablet Take by mouth ALLERGIES No Known Allergies PROBLEMS Active Ambulatory Problems Diagnosis Date Noted No Active Ambulatory Problems Resolved Ambulatory Problems Diagnosis Date Noted No Resolved Ambulatory Problems No Additional Past Medical History HISTORY PAST MEDICAL HISTORY SOCIAL HISTORY History reviewed. No pertinent past medical history. Social History Tobacco Use Smoking status: Never [...] nursing note reviewed. Exam conducted with a scientific artist present. Vitals: Estimated body mass index is 31.89 kg/m as calculated from the following: Height as of 10/03/23: 5' 3 . Weight as of this encounter: 180 lb. BP: 110/74 Patient's last menstrual period was 06/14/2024 (approximate). ASSESSMENT & PLAN ICD-10-CM 1. Third trimester ([facility]) Z34.93 POCT urinalysis dipstick manually resulted 2. 29 weeks gestation of ([facility]) Z3A.29 POCT urinalysis dipstick manually resulted 3. 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 Patient is currently 29w2d . Patient states she is doing well [...] Leslie Kelley DO documented in this encounter [facility] 01-04-2025 History of Presen t illness Narrative REASON FOR CONSULTATION: Echogenic cardiac focus HISTORY OF PRESENT ILLNESS: Cherry Meneses is a pleasant 19 y.o. . at 29w1d due on Estimated Date of Delivery: 03/21/25 . Patient was seen today due to the following 1. Incidental finding of echogenic cardiac focus with low risk cell free DNA testing. 2. Suspected left clubfoot at her OB office which was confirmed on today's ultrasound. Currently the patient has no complaints. The patient denies nausea, vomiting, abdominal pain, vaginal bleeding, SOB or chest pain. Patient's PMH/PSH,SH,PSYCH Hx, MEDs, ALLERGIES, and ROS were all reviewed and updated in the appropriate sections. Patient Active Problem List Diagnosis Well adolescent visit Encounter for suspected anomaly ruled out No past medical history on file. PAST OBSTETRICAL HISTORY: OB History 2 Para 1 Term 1 AB Living SAB IAB Ectopic Multiple Live Births SURGICAL HISTORY: No past surgical history on file. ALLERGIES: No Known Allergies CURRENT MEDICATIONS: Current Outpatient Medications: no115/iron/folic acid ( 19 ORAL), Take by mouth daily., Disp: , Rfl: FAMILY/GENETIC HISTORY: No family history of VTE, cardiac defects and mental retardation . RECENT HOSPITALIZATION: none I did review all the labs results available in addition to labs which were ordered by the primary care physician, and the other consultants, we search on [employer] and all the available care everywhere epic I did review all the imaging studies of the patient available on EMR, ordered by the primary care physician and the other acquisition consultant HABITS: Patient activity no restrictions, diet no restrictions REVIEW OF SYSTEM: Head and Neck: Negative for any dizziness and headaches. Cardiovascular and Respiratory System: Denies any chest pain, shortness of breath, and coughing. Abdominal and System: Denies any abdominal pain, nausea, vomiting, vaginal bleeding, and vaginal discharge PHYSICAL EXAMINATION: Ht 160 cm (5' 2.99 ) LMP 06/14/2024 BMI 24.22 kg/m . Gravid abdomen, Respirations not labored. Well oriented time place person, normal gait MEDICAL DECISION MAKING DISCUSSION: I started discussion with the patient that cardiac echogenic foci can be a soft marker for aneuploidy. In the absence of any other anatomical abnormalities, and normal screen, these echogenic foci has no clinical relevance and do not need to be followed us. Since the patient's screen is not available we discussed cell free DNA testing with her. In case cfDNA comes back low risk no further genetic testing is necessary. should be continued without any intervention based on this finding and spontaneous vaginal delivery should be anticipated at term. There is no need for early term delivery or induction of labor based on the echogenic foci. Early term delivery via induction of labor should be reserved for routine obstetrical cases. We started our discussion that fetus has Left sided clubfoot which was confirmed today. It is also known as talipes equinovarus with varus deviation. This is the most common foot deviation in which the foot is deviated inwards. We informed the patient that 70% of clubfoot are detected in utero at specialized centers. In the absence of any other anatomical abnormality, these are isolated malformations. The patient has opted out of any genetic testing and would prefer to have physical examination performed on the baby once it is born. I informed the patient that clubfoot are also seen with Trisomy 18 or with a positive family history. In the absence of any other anatomical abnormalities, it is unlikely that this is associated with a syndromic fetus. I also informed the patient that this should not be confused with rocker bottom foot, which has a strong association with Trisomy 18 or any amniotic band syndrome, which is entrapment of parts by disruptive amnion causes body limb defects. The fetus on today's anatomy scan appears normal except left clubfoot abnormality. I further informed the patient that should be continued without any close surveillance and normal spontaneous vaginal delivery is to be anticipated. should be reserved for routine obstetrical cases and the patient should be allowed to go to term. Early induction of labor and section should be reserved for routine OB indication. RECOMMENDATION: 1. Echogenic cardiac focus and left clubfoot seen on today's ultrasound. 2. Patient underwent cell free DNA testing today. 3. Follow-up in 4 weeks for completion of targeted anatomy at our [facility] site 4. Routine care at OB provider. 5. Term spontaneous vaginal delivery at local hospital is anticipated with C section reserve for routine obstetrical indications. 6. Please notify pediatricians at the time of delivery of the left clubfoot so that appropriate referral to Pediatric Orthopedic as an outpatient can be performed 7. Patient is low risk and can be delivered at her local hospital. DISPOSITION: At this point the patient is in complete care of her dry cleaning manager. Patient does have 1 more ultrasound scheduled with us. Thank you for allowing me to participate in Cherry Meneses . If there any questions please do not hesitate to contact us. Sincerely, SACHIN ROJO MD Headache/epigastric pain/blurry vision/swelling? No Cramping/contractions? No Spotting/vaginal bleeding? No Loss or gush of fluid like your water may have broken? No Do you have cats at home? No Do you change the litter box (reason: risk of toxoplasmosis)? N/A Genetic testing done this here or other office? No Have you been seen here at [facility] in a previous ? Yes Recent ER visits or hospitalizations? No Bring blood sugar log or meter with you today? (Please bring them with you for every visit at [facility]) N/A Flu vaccine (Mar-July)? N/A Any concerns that you would like me to mention to the provider today? No Blood drawn for [facility] cell free DNA screening. Patient tolerated well. documented in this encounter [facility] 01-04-2025 Miscellaneous Notes Addended by: OREN CARRIZALES on: 01/04/2025 10:58 AM Modules accepted: Orders documented in this encounter [facility] 01-04-2025 Note Addended by: OREN CARRIZALES on: 01/04/2025 10:58 AM Modules accepted: Orders [facility] 12-21-2024 History of Presen t illness Narrative Reason for Appointment: Patient ID: Cherry Meneses is a 19 y.o. female who presents for Routine Visit Patient presents today for Return OB appointment. MEDICATIONS Current Outpatient Medications Medication Instructions Vit-Fe Fumarate-FA ( Vitamins) 27-0.8 MG tablet Take by mouth ALLERGIES No Known Allergies PROBLEMS Active Ambulatory [...] reviewed. Vitals: Estimated body mass index is 28.13 kg/m as calculated from the following: Height as of 10/03/23: 5' 3 . Weight as of 11/22/24: 158 lb 12.8 oz. BP: Patient's last menstrual period was 06/14/2024 (approximate). ASSESSMENT & PLAN ICD-10-CM 1. Second trimester ([facility]) Z34.92 POCT urinalysis dipstick manually resulted 2. 27 weeks gestation of ([facility]) Z3A.27 Return OB: Patient presents today for a routine obstetrics appointment. Patient is currently 27w1d . Patient states she is doing well but has complaints of being tired due to current . Patient has verbalizes frequent movement. labor precautions was discussed/given and patient was instructed to perform kick counts three times a day. Orders Placed This Encounter Procedures POCT urinalysis dipstick manually resulted Follow Up: Patient is to return to office in 4 week for routine OB appointment. Documented by Macrela Lopes MA on behalf of: BARBARA Worrell documented in this encounter [facility] 11-25-2024 Miscellaneous Notes Formattin g of this note might be different from the original. Spoke to staff from Dr. Kelley's office. Patient had no genetic testing done and she has not completed all of her labs. documented in this encounter [facility] 11-25-2024 Telephone encount er Note Spoke to staff from Dr. Kelley's office. Patient had no genetic testing done and she has not completed all of her labs. [facility] 11-22-2024 History of Presen t illness Narrative Reason for Appointment: Patient ID: Cherry Meneses is a 19 y.o. female who presents for Routine OB Care Patient presents today for Return OB appointment. MEDICATIONS Current Outpatient Medications Medication Instructions Vit-Fe Fumarate-FA ( Vitamins) 27-0.8 MG tablet Take by mouth ALLERGIES No Known Allergies PROBLEMS Active Ambulatory [...] nursing note reviewed. Exam conducted with a scientific artist present. Vitals: Estimated body mass index is 26.26 kg/m as calculated from the following: Height as of 10/03/23: 5' 3 . Weight as of 10/18/24: 148 lb 4 oz. BP: Patient's last menstrual period was 06/14/2024 (approximate). ASSESSMENT & PLAN ICD-10-CM 1. Second trimester ([facility]) Z34.92 2. Abnormal finding on ultrasound R93.89 3. 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 Patient is currently 23w0d . Patient states she is doing well but has complaints of being tired due to current . Patient has verbalizes frequent movement. labor precautions was discussed/given and patient was instructed to perform kick counts three times a day. 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 Patient will need to be referred to [facility] for evaluation. No orders of the defined types were placed in this encounter. Follow Up: Patient is to return to office in 4 week for routine OB appointment. Documented by Carolynn Kovacs LPN on behalf of: Leslie Kelley DO documented in this encounter [facility] 10-18-2024 History of Presen t illness Narrative Reason for Appointment: Patient ID: Cherry Meneses is a 19 y.o. female who presents for Routine Visit Patient presents today for Return OB appointment. MEDICATIONS No current outpatient medications ALLERGIES No Known Allergies PROBLEMS Active Ambulatory [...] nursing note reviewed. Exam conducted with a scientific artist present. Vitals: Estimated body mass index is 26.26 kg/m as calculated from the following: Height as of 10/03/23: 5' 3 . Weight as of this encounter: 148 lb 4 oz. BP: 140/72 Patient's last menstrual period was 06/14/2024 (approximate). ASSESSMENT & PLAN ICD-10-CM 1. Second trimester Z34.92 POCT urinalysis dipstick manually resulted 2. 18 weeks gestation of Z3A.18 Alpha fetoprotein, maternal Alpha fetoprotein, maternal 3. Screening, , for anatomic survey Z36.89 US OB 14+ weeks anatomy scan US OB 14+ weeks anatomy scan 4. STD exposure Z20.2 SURESWAB(R) ADVANCED VAGINITIS PLUS, TMA CHLAMYDIA TRACHOMATIS (GENITO/STI) Neisseria gonorrhea DNA probe, direct Return OB: Patient presents today for a routine obstetrics appointment. Patient is currently 18w0d . Patient states she is doing well but has complaints of being tired due to current . Orders Placed This Encounter Procedures US OB 14+ weeks anatomy scan CHLAMYDIA TRACHOMATIS (GENITO/STI) Neisseria gonorrhea DNA probe, direct Alpha fetoprotein, maternal POCT urinalysis dipstick manually resulted Follow Up: Patient is to return to office in 4 week for routine OB appointment. Documented by Shahla Reynolds NP on behalf of: BARBARA Worrell documented in this encounter [facility] 09-20-2024 History of Presen t illness Narrative Reason for Appointment: Patient ID: Cherry Meneses is a 19 y.o. female who presents for Routine Visit Patient presents today for Return OB appointment. MEDICATIONS No current outpatient medications ALLERGIES No Known Allergies PROBLEMS Active Ambulatory [...] SYSTEMS Review of Systems: Review of Systems OBJECTIVE Objective: OBGyn Exam Vitals: Estimated body mass index is 25.51 kg/m as calculated from the following: Height as of 10/03/23: 5' 3 . Weight as of this encounter: 144 lb. BP: 118/86 Patient's last menstrual period was 06/14/2024 (approximate). ASSESSMENT & PLAN ICD-10-CM 1. Second trimester Z34.92 POCT urinalysis dipstick manually resulted 2. 14 weeks gestation of Z3A.14 New OB: Patient presents today for 1st time obstetrics appointment with provider. Patient is currently 14w0d . Patients history has been reviewed in great detail including any potential risks. Patient stated she currently has no complaints. Expectations throughout regarding labs, ultrasounds, and appointments have been discussed with the patient in detail. It was reiterated that the patient is to drink 6-8 glasses of water a day, eat 6 small meals a day, do not consume raw or undercooked meat, and stay away from [facility]. Patient has been consulted regarding any further do's and don'ts of . Patient voiced understanding and all questions and concerns were answered. Orders Placed This Encounter Procedures POCT urinalysis dipstick manually resulted Follow Up: Patient is to return in 4 weeks for routine OB appointment. Documented by Carolynn Kovacs LPN on behalf of: Leslie Kelley DO documented in this encounter [facility] 08-19-2024 History of Presen t illness Narrative Reason for Appointment: Patient ID: Cherry Meneses is a 19 y.o. female who presents for Amenorrhea Patient presents today for a Nurse OB Intake appointment. Patient is 9w3d with a Estimated Date of Delivery: 03/21/25 OB History Para Term AB Living 2 1 1 SAB IAB Ectopic Multiple Live Births # Outcome Date GA Lbr Clarke/2nd Weight Sex Type Anes PTL Lv 2 Current 1 Term 04/21/24 38w0d Current Medications: currently has no medications in their medication list. Medical History: Active Ambulatory Problems Diagnosis Date Noted No Active Ambulatory Problems Resolved Ambulatory Problems Diagnosis Date Noted No Resolved Ambulatory Problems No Additional Past Medical History Family History Problem Relation Name Age of Onset Stroke Maternal Grandfather Michael Allred Diabetes Maternal Grandmother Maile Allred Heart failure Maternal Grandmother Maile Allred Diabetes Paternal Grandmother Mari Meneses Social History Tobacco Use Smoking status: Never Smokeless tobacco: Never Substance Use Topics Alcohol use: Never Drug use: Never No past surgical history on file. No Known Allergies Vitals: Estimated body mass index is 26.24 kg/m as calculated from the following: Height as of 10/03/23: 5' 3 . Weight as of 07/12/24: 148 lb 1.9 oz. BP: Patient's last menstrual period was 06/14/2024 (approximate). Assessment/Plan Diagnoses and all orders for this visit: Missed menses - US OB transvaginal; Future - Type and screen; Future - ABO/Rh; Future - CBC and differential - Hemoglobin A1c - RPR - Rubella antibody, IgG - Hepatitis B surface antigen - Hepatitis C antibody - HIV-1 and HIV-2 antibodies - Urine culture - POCT , urine manually resulted - POCT urinalysis dipstick manually resulted , unspecified gestational age - Type and screen; Future - ABO/Rh; Future - CBC and differential - Hemoglobin A1c - RPR - Rubella antibody, IgG - Hepatitis B surface antigen - Hepatitis C antibody - HIV-1 and HIV-2 antibodies - Rapid drug screen, urine; Future Encounter for supervision of normal first in first trimester - Rapid drug screen, urine; Future Nurse Note: OB Intake: Patient presents today for first OB visit. Patients history has been reviewed in great detail including any potential risks. Patient signed consent forms and patient desires testing in both trimesters. Patient currently has no complaints and has been advised to drink 6-8 glasses of water a day, eat no raw or undercooked meat, and stay away from [facility]. Patient has also been advised to not change litter boxes and eat 6 small meals a day. Patient has been consulted regarding the do's and don'ts of . Patient was given labs and all questions and concerns were answered. Follow Up: Patient is to return in 4 weeks for routine OB appointment. Follow Up: Patient is to have labs drawn at directed and return to office for initial OB appointment with provider. Patient may call office as needed with any concerns or questions. Nurse Visit Completed by: Cely Jones MA documented in this encounter [facility] 07-12-2024 History of Presen t illness Narrative Reason for Appointment: Patient ID: Cherry Meneses is a 19 y.o. female who presents for Contraception (Mirena Insert) Patient presents today for Consult appointment. MEDICATIONS No current outpatient medications ALLERGIES No Known Allergies PROBLEMS Active Ambulatory Problems Diagnosis Date Noted No Active Ambulatory Problems Resolved Ambulatory Problems Diagnosis Date Noted No Resolved Ambulatory Problems No Additional Past Medical History HISTORY PAST MEDICAL HISTORY SOCIAL HISTORY History reviewed. No pertinent past medical history. Social History Tobacco Use Smoking status: Never [...] nursing note reviewed. Exam conducted with a scientific artist present. Vitals: Estimated body mass index is 26.24 kg/m as calculated from the following: Height as of 10/03/23: 5' 3 . Weight as of this encounter: 148 lb 1.9 oz. BP: 110/70 Patient's last menstrual period was 06/14/2024 (approximate). ASSESSMENT & PLAN ICD-10-CM 1. Missed menses N92.6 hCG, quantitative, hCG, quantitative, Patient had presented for Mirena IUD insertion and procedure was not performed due to positive test. Patient and spouse aware that patient is to have HCG levels drawn today and again on Friday to ensure levels rise appropriately. Patient given order and will reach out to office for plan of care once both levels are drawn and resulted. Documented by Carolynn Kovacs LPN on behalf of: Leslie Kelley DO documented in this encounter [facility] 06-21-2024 History of Presen t illness Narrative Reason for Appointment: Patient ID: Cherry Meneses is a 19 y.o. female who presents for 6 week post Patient presents today for Post Follow Up appointment. MEDICATIONS Current Outpatient Medications Medication Instructions labetalol (NORMODYNE) 200 mg, Oral, 2 times daily MV-Min-Fe Fum-FA-DHA ( 1 PO) Daily RT ALLERGIES No Known Allergies PROBLEMS [...] nursing note reviewed. Exam conducted with a scientific artist present. Vitals: Estimated body mass index is 25.69 kg/m as calculated from the following: Height as of 24: 5' 3 . Weight as of this encounter: 145 lb. BP: 104/76 Patient's last menstrual period was 04/21/2024 (approximate). ASSESSMENT & PLAN ICD-10-CM 1. 6 weeks follow-up Z39.2 Post Follow Up: Patient is doing well. Patient presents today for 6 week visit. Patient is s/p Vaginal delivery. Patient states depression but denies suicidal and homicidal ideations. All options were discussed with the patient regarding control and patient desires IUD. Follow Up: Patient is to return for annual unless needed otherwise. Documented by Cely Jones MA on behalf of: BARBARA Worrell documented in this encounter [facility] 04-19-2024 History of Presen t illness Narrative Reason for Appointment: Patient ID: Cherry Meneses is a 19 y.o. female who presents for Routine Visit Patient presents today for Return OB appointment. MEDICATIONS Current Outpatient Medications Medication Instructions labetalol (NORMODYNE) 200 mg, Oral, 2 times daily MV-Min-Fe Fum-FA-DHA ( 1 PO) Daily RT ALLERGIES No Known Allergies PROBLEMS Active Ambulatory Problems Diagnosis Date Noted No Active Ambulatory Problems Resolved Ambulatory Problems Diagnosis Date Noted No Resolved Ambulatory Problems No Additional Past Medical History HISTORY PAST MEDICAL HISTORY SOCIAL HISTORY History reviewed. No pertinent past medical history. Social History Tobacco Use Smoking status: Never [...] nursing note reviewed. Exam conducted with a scientific artist present. Vitals: Estimated body mass index is 28.84 kg/m as calculated from the following: Height as of 10/03/23: 5' 3 . Weight as of this encounter: 162 lb 12.8 oz. BP: 130/78 Patient's last menstrual period was 07/30/2023. ASSESSMENT & PLAN ICD-10-CM 1. 37 weeks gestation of Z3A.37 POCT urinalysis dipstick manually resulted 2. Third trimester Z34.93 POCT urinalysis dipstick manually resulted Patient presents today for a routine obstetrics appointment. Patient is currently 37w5d with a Estimated Date of Delivery: 05/05/24. Patient signed IOL consents today for IOL on 04/21/24 at 0500 @38 weeks gestation due to HTN. Consents faxed to [facility] and patient aware to arrive at the ER entrance. Patient to return to clinic for appointment. Documented by Carolynn Kovacs LPN on behalf of: Leslie Kelley DO documented in this encounter [facility] 04-12-2024 History of Presen t illness Narrative [...] nursing note reviewed. Exam conducted with a scientific artist present. Vitals: Estimated body mass index is [...] Tiffani Bryan PA-C documented in this encounter [facility] 03-24-2024 History of Presen t illness Narrative [...] of: BARBARA Worrell documented in this encounter [facility] 03-10-2024 History of Presen t illness Narrative [...] nursing note reviewed. Exam conducted with a scientific artist present. Vitals: Estimated body mass index is [...] Leslie Kelley DO documented in this encounter [facility] 02-26-2024 History of Presen t illness Narrative [...] of: BARBARA Worrell documented in this encounter [facility] 02-11-2024 History of Presen t illness Narrative Reason [...] History HISTORY PAST MEDICAL HISTORY SOCIAL HISTORY History reviewed. No pertinent past medical history. Social History Tobacco Use Smoking status: Never [...] nursing note reviewed. Exam conducted with a scientific artist present. Vitals: Estimated body mass index is 24.23 kg/m as calculated from the following: Height as of 10/03/23: 5' 3 . Weight as of this encounter: 136 lb 12.8 oz. BP: 112/72 Patient's last menstrual period was 07/30/2023. ASSESSMENT & PLAN ICD-10-CM 1. Third trimester Z34.93 Return OB: Patient presents today for a routine obstetrics appointment. Patient is currently 28w0d . Patient states she is doing well but has complaints of being tired due to current . Patient has verbalizes frequent movement. labor precautions was discussed/given and patient was instructed to perform kick counts three times a day. No orders of the defined types were placed in this encounter. Follow Up: Patient is to return to office in 2 week for routine OB appointment. Documented by Lanette Mike LPN on behalf of: Leslie Kelley DO documented in this encounter [facility] 02-09-2024 History of Presen t illness Narrative Headache/epigastric pain/blurry vision/swelling? No Cramping/contractions? No Abnormal vaginal discharge? No Spotting/vaginal bleeding? No Loss or gush of fluid like your water may have broken? No Do you have cats at home? No Do you change the litter box (reason: risk of toxoplasmosis)? NA Genetic testing done this here or other office? Yes Have you been seen here at [facility] in a previous ? NA Recent ER visits or hospitalizations? No Bring blood sugar log or meter with you today? (Please bring them with you for every visit at [facility]) NA Flu vaccine (Mar-July)? NA Any concerns that you would like me to mention to the provider today? No REASON FOR CONSULTATION: Suspected growth Restriction ruled out. HISTORY OF PRESENT ILLNESS: Cherry Meneses is a pleasant 19 y.o. G 1 P0. at 27w5d due on Estimated Date of Delivery: 05/09/24 . Patient was seen today due to the following 1. Suspected growth restriction ruled out. Ultrasound age: 8 weeks 5 days Ultrasound ROSALIA: 05/09/2024. Currently the patient has no complaints. The patient denies nausea, vomiting, abdominal pain, vaginal bleeding, SOB or chest pain. Patient's PMH/PSH,SH,PSYCH Hx, MEDs, ALLERGIES, and ROS were all reviewed and updated in the appropriate sections. Patient Active Problem List Diagnosis Well adolescent visit History reviewed. No pertinent past medical history. PAST OBSTETRICAL HISTORY: OB History 1 Para Term AB Living SAB IAB Ectopic Multiple Live Births SURGICAL HISTORY: History reviewed. No pertinent surgical history. ALLERGIES: No Known Allergies CURRENT MEDICATIONS: Current Outpatient Medications: no115/iron/folic acid ( 19 ORAL), Take by mouth daily., Disp: , Rfl: FAMILY/GENETIC HISTORY: No family history of VTE, cardiac defects and mental retardation . SOCIAL HISTORY:Patient denies tobacco use, alcohol use, or drug use. RECENT HOSPITALIZATION: none I did review all the labs results available in addition to labs which were ordered by the primary care physician, and the other consultants, we search on [employer] and all the available care everywhere epic I did review all the imaging studies of the patient available on EMR, ordered by the primary care physician and the other acquisition consultant HABITS: Patient activity no restrictions, diet no restrictions REVIEW OF SYSTEM: Head and Neck: Negative for any dizziness and headaches. Cardiovascular and Respiratory System: Denies any chest pain, shortness of breath, and coughing. Abdominal and System: Denies any abdominal pain, nausea, vomiting, vaginal bleeding, and vaginal discharge Social Determinants of Health Financial Resource Strain: n Food Insecurity: n Transportation Needs: n Physical Activity: y Social Connections: y Intimate Partner Violence: n Housing Stability: y PHYSICAL EXAMINATION: BP 131/75 (BP Site: Left Arm, BP Postition: Sitting, BP CUFF SIZE: M (9-13 inches)) Pulse 94 Wt 62 kg (136 lb 11 oz) LMP 08/02/2023 . Gravid abdomen, Respirations not labored. Well oriented time place person, normal gait RECOMMENDATION: 1. anomaly not found 2. Normal interval growth. 3. 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 Patient does not have any future appointment scheduled with us Thank you for allowing me to participate in Cherry Meneses . If there any questions please do not hesitate to contact us. Sincerely, SACHIN ROJO MD [facility] History of Presen t illness Narrative Reason for Appointment: Patient ID: Cherry Meneses is a 19 y.o. female who presents for Routine Visit Patient presents today for Return OB appointment. MEDICATIONS No current outpatient medications ALLERGIES No Known Allergies PROBLEMS Active Ambulatory Problems Diagnosis Date Noted No Active Ambulatory Problems Resolved Ambulatory Problems Diagnosis Date Noted No Resolved Ambulatory Problems No Additional Past Medical History HISTORY PAST MEDICAL HISTORY SOCIAL HISTORY History reviewed. No pertinent past medical history. Social History Tobacco Use Smoking status: Never [...] nursing note reviewed. Exam conducted with a scientific artist present. Vitals: Estimated body mass index is 23.34 kg/m as calculated from the following: Height as of 10/03/23: 5' 3 . Weight as of this encounter: 131 lb 12 oz. BP: 118/74 Patient's last menstrual period was 07/30/2023. ASSESSMENT & PLAN ICD-10-CM 1. 26 weeks gestation of Z3A.26 POCT urinalysis dipstick manually resulted Return OB: Patient presents today for a routine obstetrics appointment. Patient is currently 26w0d . Patient states she is doing well [...] by Lanette Mike LPN on behalf of: Tiffani Sanches documented in this encounter [facility] 01-11-2022 Evaluation note Encounter Date Diagnosis Assessment [...] treatment plan. Patient left in stable condition instruMagic Other Evaluation note* Diagnosis Third trimester state, incidental 30 weeks gestation of documented in this encounter [facility]* Diagnosis Third trimester state, incidental 32 weeks gestation of SGA (small for gestational age) Sswnl-iug-suepc without mention of malnutrition, unspecified (weight) documented in this encounter [facility] HealthcareEvaluation note* Diagnosis Third trimester state, incidental 34 weeks gestation of documented in this encounter [facility]* Diagnosis Third trimester state, incidental 36 weeks gestation of Bacterial infection due to mycoplasma documented in this encounter [facility] note* Diagnosis 37 weeks gestation of Third trimester state, incidental [facility]* Diagnosis 26 weeks gestation of [facility]* Diagnosis Third trimester state, incidental [facility]* Diagnosis 6 weeks follow-up [facility]* Diagnosis Encounter for suspected anomaly ruled out- Primary [facility] Diagnosis Missed menses [facility]* Diagnosis Missed menses , unspecified gestational age Encounter for supervision of normal first in first trimester [facility]* Diagnosis Second trimester state, incidental 14 weeks gestation of [facility]* Diagnosis Second trimester state, incidental 18 weeks gestation of Screening, , for anatomic survey Encounter for anatomic survey STD exposure [facility]* Diagnosis Second trimester ([facility]) state, incidental Abnormal finding on ultrasound 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 Diabetes mellitus screening Screening for diabetes mellitus [facility]* Diagnosis Second trimester ([facility]) state, incidental 27 weeks gestation of ([facility]-HCC) size inconsistent with dates ([facility]HS-HCC) [facility]* Diagnosis Encounter for suspected anomaly ruled out- Primary cardiac echogenic focus, antepartum, fetus 1 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, single or unspecified fetus Echogenic intracardiac focus of fetus on ultrasound documented [facility] this encounter [facility] Diagnosis 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, single or unspecified fetus- Primary Echogenic intracardiac focus of fetus on ultrasound [facility] Diagnosis Third trimester ([facility]) state, incidental 29 weeks gestation of ([facility]CC) 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 [facility]* Diagnosis Third trimester ([facility]) state, incidental 31 weeks gestation of ([facility]) [facility]* Diagnosis Third trimester ([facility]) state, incidental 33 weeks gestation of ([facility]) [facility]* Diagnosis 35 weeks gestation of ([facility]HS-HCC) Third trimester ([facility]) state, incidental 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 [facility] Narrative - Reported* Type Description Date Medical History J instruMagic Other InstructionsNot on filedocumented in this encounter [facility] filedocumented in this [facility] filedocumented in this [facility] filedocumented in this [facility] Summary Purpose Family History No Family History Records FoundNo Family History Records FoundNo Family History Records FoundNo Family History Records Found Advance Directives No Advanced Directives Records FoundNo Advanced Directives Records FoundNo Advanced Directives Records FoundNo Advanced Directives Records Found Additional Source Comments INFORMATION SOURCE (unrecogn ized section and content) DATE CREATED AUTHOR 06/07/2019 [facility] DATE CREATED AUTHOR AUTHOR'S ORGANIZ ATION 01/05/2025 [facility] DATE CREATED AUTHOR AUTHOR'S ORGANIZ ATION 02/04/2025 [facility] DATE CREATED AUTHOR AUTHOR'S ORGANIZ ATION 02/21/2025 [facility] dical Specialists EPIC REASON FOR VISIT (unrecogniz ed section and content) Reason Comments Routine Visit Reason Comments 6 week post Reason Comments low estimated weight Reason Comments Contraception Mirena Insert Reason Comments Amenorrhea Reason Comments Routine OB Care Reason Comments Suspected Club Foot Care Teams (unrecognized sec tion and content) Locomotive Crane Engineer Relationship Specialty Start Date End Date Richie Tinajero MD [address] [place] [address] PCP - General Family Medicine 09/08/23 Locomotive Crane Engineer Relationship Specialty Start Date End Date Richie Tinajero MD [address] [place] [address] PCP - General Family Medicine 09/08/23 Locomotive Crane Engineer Relationship Specialty Start Date End Date Richie Tinajero MD [address] [place] [address] PCP - General Family Medicine 09/08/23 Locomotive Crane Engineer Relationship Specialty Start Date End Date Richie Tinajero MD [address] [place] [address] PCP - General Family Medicine 09/08/23 Locomotive Crane Engineer Relationship Specialty Start Date End Date Richie Tinajero MD [address] [place] [address] PCP - General Family Medicine 09/08/23 Locomotive Crane Engineer Relationship Specialty Start Date End Date Richie Tinajero MD [address] [place] [address] PCP - General Family Medicine 09/08/23 Locomotive Crane Engineer Relationship Specialty Start Date End Date Richie Tinajero MD [address] [place] [address] PCP - General Family Medicine 09/08/23 Locomotive Crane Engineer Relationship Specialty Start Date End Date Richie Tinajero MD [address] [place] [address] PCP - General Family Medicine 09/08/23 Locomotive Crane Engineer Relationship Specialty Start Date End Date Richie Tinajero MD [address] [place] [address] PCP - General Family Medicine 09/08/23 Locomotive Crane Engineer Relationship Specialty Start Date End Date Richie Tinajero DO [address], [place] [address] PCP - General Family Medicine 07/10/22 Locomotive Crane Engineer Relationship Specialty Start Date End Date Richie Tinajero DO [address] [place] [address] PCP - General Family Medicine 07/10/22 Locomotive Crane Engineer Relationship Specialty Start Date End Date Richie Tinajero DO [address], [place] [address] PCP - General Family Medicine 07/10/22 Locomotive Crane Engineer Relationship Specialty Start Date End Date Richie Tinajero MD [address], [place] [address] PCP - General Family Medicine 09/08/23 Locomotive Crane Engineer Relationship Specialty Start Date End Date Richie Tinajero MD [address], [place] [address] PCP - General Family Medicine 09/08/23 Locomotive Crane Engineer Relationship Specialty Start Date End Date Richie Tinajero MD PCP - General Family Medicine 09/08/23 Locomotive Crane Engineer Relationship Specialty Start Date End Date Richie Tinajero MD PCP - General Family Medicine 09/08/23 Locomotive Crane Engineer Relationship Specialty Start Date End Date Richie Tinajero MD PCP - General Family Medicine 09/08/23 Locomotive Crane Engineer Relationship Specialty Start Date End Date Richie Tinajero MD PCP - General Family Medicine 09/08/23 Locomotive Crane Engineer Relationship Specialty Start Date End Date Richie Tinajero MD PCP - General Family Medicine 09/08/23 Locomotive Crane Engineer Relationship Specialty Start Date End Date Richie Tinajero MD PCP - General Family Medicine 09/08/23 Locomotive Crane Engineer Relationship Specialty Start Date End Date Richie Tinajero DO [address], [place] [address] PCP - General Family Medicine 07/10/22 Locomotive Crane Engineer Relationship Specialty Start Date End Date Richie Tinajero MD PCP - General Family Medicine 09/08/23 Locomotive Crane Engineer Relationship Specialty Start Date End Date Richie Tinajero MD PCP - General Family Medicine 09/08/23 Locomotive Crane Engineer Relationship Specialty Start Date End Date Richie Tinajero DO [address], [place] [address] PCP - General Family Medicine 07/10/22 Locomotive Crane Engineer Relationship Specialty Start Date End Date Richie Tinajero DO [address], [place] [address] PCP - General Family Medicine 07/10/22 Locomotive Crane Engineer Relationship Specialty Start Date End Date Richie Tinajero MD PCP - General Family Medicine 09/08/23 FOR [...] BE BASED ON THE PRIMARY CLINICAL RECORDS. [facility]. provides no warranty or guarantee of the accuracy or completeness of information in this document.
== END 2025-02-24 19:16 | disposition home or self-care (01) ==
LOC: LAB 19:15
PROVIDERS: PCP Family Medicine; Visit Provider Nurse Practitioner Family
DX: Z34.93 Encounter for supervision of normal pregnancy, unspecified, third trimester (principal)
CPT/HCPCS: 87081

== ENCOUNTER 2025-03-13 09:27 | Inpatient (IN) | payer BC, OTHER, SELFPAY ==
--- OUTSIDE RECORDS SUMMARY | 2025-03-03 10:20 | XMS_ITS | Encounter Summary ---
Author Organization [facility] Address [address] [place] [address] Care Team Providers Care Coal Hiker Name Role Phone Richie Tinajero MD Primary Care Provider + [phone] Reason for Visit * ReasonCommentsRoutine Visit Encounter Details DateTypeDepartmentCare Team (Latest Contact Info)Xinkjyxqhef93/16/2025 10:20 AM EDTRoutine [facility] OBKAVON [address] [place] [address] Tiffani Moyer PA [address] [place], [id number] Third trimester ([facility]); 37 weeks gestation of ([facility]) Social History Tobacco UseTypesPacks/DayYears UsedDateSmoking Tobacco: NeverSmokeless Tobacco: NeverAlcohol UseStandard Drinks/WeekCommentsNever0 (1 standard drink = 0.6 oz pure alcohol)PHQ-2AnswerDate RecordedPatient Health Questionnaire-2 Score0 10/21/2024Estimated Date of DtrneobiTxqxnoyzVap32/03/2025Based on last menstrual period of 06/14/2024 (Approximate)Sex and Gender InformationValueDate RecordedSex Assigned at KhzhkXeyjof04/16/2024 9:36 AM EDTLegal SexFemale 09/08/2023 11:04 AM EDTGender GikrxuypCdqknu20/16/2024 9:36 AM EDTSexual RanloyrhyfwVwvitrbr91/16/2024 9:36 AM EDTdocumented as of this encounter Last Filed Vital Signs Vital SignReadingTime TakenCommentsBlood Ngvghpwf429/801 10:42 AM EDT Pulse--Temperature--Respiratory Rate--Oxygen Saturation--Inhaled Oxygen Concentration--Iosobh50.7 kg (200 lb)03/03/2025 10:42 AM EDTHeight--Body Mass Index35.43010/03/2023 10:38 AM EDTdocumented in this encounter Progress Notes * BARBARA Worrell - 03/03/2025 10:20 AM EDT Reason for Appointment: Patient ID: Cherry Meneses is a 20 y.o. female who presents for Routine Visit Patient presents today for Return OB appointment. MEDICATIONS Current Outpatient Medications Medication Instructions Vit-Fe Fumarate-FA ( Vitamins) 27-0.8 MG tablet Take by mouth ALLERGIES Allergies[1] PROBLEMS Active Ambulatory Problems Diagnosis Date Noted No Active Ambulatory Problems Resolved Ambulatory Problems Diagnosis Date Noted No Resolved Ambulatory Problems No Additional Past Medical History HISTORY PAST MEDICAL HISTORY SOCIAL HISTORY Medical History[2] Social History Tobacco Use Smoking status: Never Smokeless tobacco: Never Substance Use Topics Alcohol use: Never Drug use: Never FAMILY HISTORY Family History[3] SURGICAL HISTORY Surgical History[4] REVIEW OF SYSTEMS Review of Systems: Review [...] reviewed. Vitals: Estimated body mass index is 35.43 kg/m?? as calculated from the following: Height as of 10/03/23: 5' 3 . Weight as of this encounter: 200 lb. BP: 122/80 Patient's last menstrual period was 06/14/2024 (approximate). ASSESSMENT & PLAN ICD-10-CM 1. Third trimester ([facility]) Z34.93 POCT urinalysis dipstick manually resulted 2. 37 weeks gestation of ([facility]) Z3A.37 Return OB: Patient presents today for a routine obstetrics appointment. Patient is currently 37w3d . Patient states she is doing well [...] BARBARA Worrell on behalf of: BARBARA Worrell [1] No Known Allergies [2] No past medical history on file. [3] Family History Problem Relation Name Age of Onset Stroke Maternal Grandfather Michael Allred Diabetes Maternal Grandmother Maile Allred Heart failure Maternal Grandmother Maile Allred Diabetes Paternal Grandmother Mari Meneses [4] No past surgical history on file. documented in this encounter Plan of Treatment DateTypeDepartmentCare Team (Latest Contact Info)Rtsiercvdgm62/29/2025 10:20 AM EDTRoutine [facility] [address] [place] [address] Tiffani Moyer PA [address] [place] [address] documented as of this encounter Procedures Procedure NamePriorityDate/TimeAssociated DiagnosisCommentsPOCT URINALYSIS LMOSHGPNRxjdrdk14/16/2025 10:46 AM EDT Third trimester ([facility]) documented in this encounter Results * (ABNORMAL) POCT urinalysis dipstick manually resulted (03/03/2025 10:46 AM EDT)ComponentValueRef RangeTest MethodAnalysis TimePerformed AtPathologist SignatureColor, UAYellowClarity, UAClearGlucose, UANegativeNegative - 2000(110) ++++ mg/dLBilirubin, UANegativeNegative - 4(70) +++ mg/dLKetones, UA NegativeNegative - 160(16) ++++ mg/dLSpec Grav, UA1.0151 - 1.03Blood, UA NegativeNegative - 50 Hector/mcLpH, UA6.05 - 9Protein, UANegativeNegative - 2000(20) ++++ mg/dLUrobilinogen, UA0.20.2 - 12 mg/dLLeukocytes, UANegative Negative - 500+++ Josemanuel/mcLNitrite, UANegativeNegative - PositiveSpecimen (Source)Anatomical Location / LateralityCollection Method / VolumeCollection TimeReceived PyaeNbdmu87/16/2025 10:46 AM EDT Narrative Authorizing ProviderResult TypeResult StatusAmy [facility] TEST ENTER/EDIT ORDERABLESFinal Result documented in this encounter Visit Diagnoses Diagnosis Third trimester ([facility]) state, incidental 37 weeks gestation of ([facility]) documented in this encounter Care Teams Team MemberRelationshipSpecialtyStart DateEnd Date Richie Tinajero MD PCP - GeneralFamily Medicine09/08/23documented as of this encounter
--- OUTSIDE RECORDS SUMMARY | 2025-03-09 14:50 | XMS_ITS | Encounter Summary ---
Author Organization [facility] Address [address] [facility] [place] [address] Care Team Providers Care Field Handyman Name Role Phone Richie Tinajero MD Primary Care Provider + [phone] Reason for Visit * ReasonCommentsRoutine Visit Encounter Details DateTypeDepartmentCare Team (Latest Contact Info)Yilapwglsyk50/22/2025 2:50 PM EDTRoutine [facility] THOMAS [address] [place] [address] Tiffani Moyer PA [address] [place] [address] Third trimester ([facility]); 38 weeks gestation of ([facility]) Social History Tobacco UseTypesPacks/DayYears UsedDateSmoking Tobacco: NeverSmokeless Tobacco: NeverAlcohol UseStandard Drinks/WeekCommentsNever0 (1 standard drink = 0.6 oz pure alcohol)PHQ-2AnswerDate RecordedPatient Health Questionnaire-2 Score0 10/21/2024Estimated Date of NvkqzmuxQkcjocdmVjy82/03/2025Based on last menstrual period of 06/14/2024 (Approximate)Sex and Gender InformationValueDate RecordedSex Assigned at DpmmqCyamjg22/16/2024 9:36 AM EDTLegal SexFemale 09/08/2023 11:04 AM EDTGender FkqgictbInfcjo79/16/2024 9:36 AM EDTSexual VzmpnjkhghpYjcwpmjb16/16/2024 9:36 AM EDTdocumented as of this encounter Last Filed Vital Signs Vital SignReadingTime TakenCommentsBlood Xybvlxue678/801 3:04 PM EDT Pulse--Temperature--Respiratory Rate--Oxygen Saturation--Inhaled Oxygen Concentration--Djdfme80.3 kg (199 lb)03/09/2025 3:04 PM EDTHeight--Body Mass Index35.25010/03/2023 10:38 AM EDTdocumented in this encounter Progress Notes * Marcela Lopes MA - 03/09/2025 2:50 PM EDT Reason for Appointment: Patient ID: Cherry [...] Appearance: Normal appearance. She is well-developed. Genitourinary: Right Adnexa: not tender and no mass present. Left Adnexa: not tender and no mass present. No cervical discharge. Breasts: Breasts are soft. Right: Normal. Left: Normal. HENT: Head: Normocephalic. Nose: Nose normal. Mouth/Throat: Mouth: Mucous membranes are moist. Cardiovascular: Rate and Rhythm: Normal rate and regular rhythm. Pulmonary: Effort: Pulmonary effort is normal. Breath sounds: Normal breath sounds. Abdominal: General: Bowel sounds are normal. There is no distension. Palpations: Abdomen is soft. Tenderness: There is no abdominal tenderness. There is no guarding or rebound. Musculoskeletal: General: No swelling. Normal range of motion. Cervical back: Normal range of motion. Right lower leg: No edema. Left lower leg: No edema. Neurological: General: No focal deficit present. Mental Status: She is alert and oriented to person, place, and time. Skin: General: Skin is warm and dry. Psychiatric: Mood and Affect: Mood normal. Behavior: Behavior normal. Vitals and nursing note reviewed. Exam conducted with a hr intern present. Vitals: Estimated body mass index is 35.43 kg/m?? as calculated from the following: Height as of 10/03/23: 5' 3 . Weight as of 03/03/25: 200 lb. BP: Patient's last menstrual period was 06/14/2024 (approximate). Assessment/Plan ICD-10-CM 1. Third trimester ([facility]) Z34.93 POCT urinalysis dipstick manually resulted 2. 38 weeks gestation of ([facility]) Z3A.38 Return OB: Patient presents today for a routine obstetrics appointment. Patient is currently 38w2d . Patient states she is doing well [...] week for routine OB appointment. Documented by Marcela Lopes MA on behalf of: BARBARA Worrell documented in this encounter Plan of Treatment DateTypeDepartmentCare Team (Latest Contact Info)Mkwyttxlrtq74/29/2025 10:20 AM EDTRoutine [facility] OBGYN [address] [place] [address] Tiffani Moyer PA [address] [facility] [address] [place] [address] documented as of this encounter Procedures Procedure NamePriorityDate/TimeAssociated DiagnosisCommentsPOCT URINALYSIS XNNIVFUMQvkzroz44/22/2025 3:10 PM EDT Third trimester ([facility]) documented in this encounter Results * POCT urinalysis dipstick manually resulted (03/09/2025 3:10 PM EDT)Component ValueRef RangeTest MethodAnalysis TimePerformed AtPathologist SignatureColor, UAYellowClarity, UAClearGlucose, UANegativeNegative - 2000(110) ++++ mg/dL Bilirubin, UANegativeNegative - 4(70) +++ mg/dLKetones, UANegativeNegative - 160(16) ++++ mg/dLSpec Grav, UA1.0151 - 1.03Blood, UANegativeNegative - 50 Hector/mcLpH, UA6.05 - 9Protein, UANegativeNegative - 2000(20) ++++ mg/dL Urobilinogen, UA1.00.2 - 12 mg/dLLeukocytes, UANegativeNegative - 500+++ Josemanuel/mcLNitrite, UANegativeNegative - PositiveSpecimen (Source)Anatomical Location / LateralityCollection Method / VolumeCollection TimeReceived Time Urine03/09/2025 3:10 PM EDT Narrative Authorizing ProviderResult TypeResult StatusAmy [facility] TEST ENTER/EDIT ORDERABLESFinal Result documented in this encounter Visit Diagnoses Diagnosis Third trimester ([facility]) state, incidental 38 weeks gestation of ([facility]) documented in this encounter Care Teams Team MemberRelationshipSpecialtyStart DateEnd Date Richie Tinajero MD PCP - GeneralFamily Medicine09/08/23documented as of this encounter
[2025-03-13] VITALS (44 sets, daily range): BP systolic 130–185; BP diastolic 62–101; PULSE 78–131; TEMP 36.7–36.9
--- OUTSIDE RECORDS SUMMARY | 2025-03-13 09:31 | XMS_ITS | Encounter Summary ---
Author Organization [facility] Address [address] [place] [address] Care Team Providers Care Distribution Center Manager Name Role Phone Richie Tinajero MD Primary Care Provider + [phone] Encounter Details DateTypeDepartmentCare Team (Latest Contact Info)Parviakjcxm21/22/2025Bamboo flowsheet [facility] [address] [place] [address] Tiffani Moyer PA [address] [place] [address] Social History Tobacco UseTypesPacks/DayYears UsedDateSmoking Tobacco: NeverSmokeless Tobacco: NeverAlcohol UseStandard Drinks/WeekCommentsNever0 (1 standard drink = 0.6 oz pure alcohol)PHQ-2AnswerDate RecordedPatient Health Questionnaire-2 Score0 10/21/2024Estimated Date of NcwnmrjoTipiamygZac39/03/2025Based on last menstrual period of 06/14/2024 (Approximate)Sex and Gender InformationValueDate RecordedSex Assigned at BofxgGgpmox93/16/2024 9:36 AM EDTLegal SexFemale 09/08/2023 11:04 AM EDTGender HqokkqkwYajjcv53/16/2024 9:36 AM EDTSexual NnklytwznksSnsgycap81/16/2024 9:36 AM EDTdocumented as of this encounter Plan of Treatment DateTypeDepartmentCare Team (Latest Contact Info)Lkjdihhjilb52/29/2025 10:20 AM EDTRoutine [facility] Sh[facility]y THOMAS [address] [place] [address] Tiffani Moyer PA [address] [place] [address] documented as of this encounter Visit Diagnoses Not on filedocumented in this encounter Care Teams Team MemberRelationshipSpecialtyStart DateEnd Date Richie Tinajero MD PCP - GeneralFamily Medicine09/08/23documented as of this encounter
--- OUTSIDE RECORDS SUMMARY | 2025-03-13 09:31 | XMS_ITS | Clinical Summary ---
Author Organization [facility] tem Address [id number] [address] [place] [address] Care Team Providers Care Wallpaperer Name Role Phone Richie Tinajero Primary Care Provider + [phone] Allergies No known active allergies Medications MedicationSigDispense QuantityRefillsLast FilledStart DateEnd DateStatus no115/iron/folic acid ( 19 ORAL) Take by mouth in the morning.Active Active Problems ProblemNoted DateDiagnosed DateFetal cardiac echogenic focus, antepartum, fetus Encounter for suspected anomaly ruled out02/09/2024Well adolescent visit01/07/2023Estimated Date of DeliveryCommentsYes 03/21/2025ased on last menstrual period of 06/14/2024 Encounters DateTypeDepartmentCare AvaqYqorrjvxjtk05/18/0826Gkklwf69/26/2025Orders Only Maternal- Medicine at [facility] [address] [place] [phone] Dorothy Vivas RN 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, single or unspecified fetus; Echogenic intracardiac focus of fetus on cnyccxhqut34/19/2025 10:00 AM EDTOffice Visit Maternal- Medicine at [facility] [address] [place] [phone] Sachin Rojo MD Encounter for suspected anomaly ruled out (Primary Dx); cardiac echogenic focus, antepartum, fetus 1; 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, single or unspecified fetus; Echogenic intracardiac focus of fetus on ctxtpvlywc74/19/2025 8:45 AM EDT - 01/04/2025 11:59 PM EDTHospital Encounter [facility] - [facility] [address] [place] [phone] Screening, , for anatomic survey Discharge Disposition: Home01/04/2025Orders Only Maternal- Medicine at [facility] [address] [facility] [address] [place] [phone] Dorothy Vivas, RN 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, single or unspecified fetus (Primary Dx); Echogenic intracardiac focus of fetus on huebxbkuzf69/18/2025Travelfrom Last 3 Months Family History Medical HistoryRelationNameCommentsNo Known ProblemsFatherStrokeMaternal GrandfatherDiabetesMaternal GrandmotherHeart failureMaternal GrandmotherNo Known ProblemsMotherDiabetesPaternal GrandmotherRelationNameStatusCommentsFatherAlive Maternal GrandfatherMaternal GrandmotherMotherAlivePaternal Grandmother Social History Tobacco UseTypesPacks/DayYears UsedDateSmoking Tobacco: NeverSmokeless Tobacco: Never Tobacco Cessation:Counseling Given: Not Answered Alcohol UseStandard Drinks/WeekCommentsNever0 (1 standard drink = 0.6 oz pure alcohol)Social Connection and Isolation PanelAnswerDate RecordedIn a typical week, how many times do you talk on the phone with family, friends, or neighbors?More than three times a week01/07/2023How often do you get together with friends or relatives?More than three times a week01/07/2023How often do you attend protestant or episcopalian services?Never01/07/2023o you belong to any clubs or organizations such as protestant groups, unions, fraternal or athletic groups, or school groups?Yes01/07/2023How often do you attend meetings of the clubs or organizations you belong to?1 to 4 times per year01/07/2023re you , , , , never , or living with a partner?Never yiymnbn7601/07/2023UDIT-CAnswerDate RecordedQ1: How often do you have a drink containing alcohol?Never01/07/2023Q2: How many drinks containing alcohol do you have on a typical day when you are drinking?Patient does not drink01/07/2023Q3: How often do you have six or more drinks on one occasion?Never01/07/2023Overall Financial Resource Strain (CARDIA)AnswerDate RecordedHow hard is it for you to pay for the very basics like food, housing, medical care, and heating?Not hard at all01/07/2023HQ-2AnswerDate RecordedTotal Tvtmt674[facility] [place] of Occupational Health - Occupational Stress QuestionnaireAnswerDate RecordedDo you feel stress - tense, restless, nervous, or anxious, or unable to sleep at night because yourmind is troubled all the time - these days?Not at all 01/07/2023Exercise Vital SignAnswerDate RecordedOn average, how many days per week do you engage in moderate to strenuous exercise (like a brisk walk)?4 days 01/07/2023On average, how many minutes do you engage in exercise at this level? 10 min01/07/2023RAPARE - TransportationAnswerDate RecordedIn the past 12 months, has lack of transportation kept you from medical appointments or from getting medications?No01/07/2023In the past 12 months, has lack of transportation kept you from meetings, work, or from getting things needed for daily living?No01/07/2023Housing InstabilityAnswerDate RecordedAre you worried or concerned that in the next two months you may not have stable housing that you own, rent or stay in as a part of a household?No01/07/2023hildcareAnswer Date RecordedDo problems getting early childhood lead teacher make it difficult for you to work or study?No01/07/2023EmploymentAnswerDate RecordedDo you need help finding a local career center and/or a training program?Yes01/07/2023Hunger ScreeningAnswerDate RecordedWithin the past 12 months we worried whether our food would run out before we got money to buy more.Never True08/19/2025Within the past 12 months the food we bought just didn't last and we didn't have money to get more.Never True01/04/2025Purpose - LifeAnswerDate RecordedI have a purpose and direction in my life.Strongly Agree01/07/2023Estimated Date of DeliveryCommentsYes 5Based on last menstrual period of 06/14/2024Sex and Gender Information ValueDate RecordedSex Assigned at BirthNot on fileLegal XjeSwavsr06/06/2015 12:03 PM EDTGender IdentityNot on fileSexual OrientationNot on file Last Filed Vital Signs Vital SignReadingTime TakenCommentsBlood Xwzztmgn369/8701/04/2025 9:20 AM EDT Adeno37686/19/2025 9:20 AM KGNOlqotsoanrr32.7 ??C (98.1 ??F)01/07/2023 2:48 PM EDTRespiratory Rate--Oxygen Celoapkcmr669%01/07/2023 2:48 PM EDTInhaled Oxygen Concentration--Nrvtba17.4 kg (181 lb 9.6 oz)01/04/2025 9:20 AM WVKWtjzfj498 cm (5' 2.99 )01/04/2025 9:20 AM EDTBody Mass Index32.18001/04/2025 9:20 AM EDT Plan of Treatment Health MaintenanceDue DateLast DoneCommentsAdult BMI Follow Up Plan2023 Depression Kxdksumel78/TaP,Tdap and Td Vaccines (1 - Tdap) 01/19/2024Influenza Hqebzlw9901/17/2025dult BMI Ppigckscd33 Tobacco Aonxszrer78 Medical Devices Not on file Procedures Procedure NamePriorityDate/TimeAssociated DiagnosisCommentsUS [facility] OB FOLLOW-UP, 1 JMGGAYkuqnfc28/18/2025 12:09 PM EDT 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 Anatomical RegionLateralityModalityOB-GYNUltrasoundSpecimen (Source)Anatomical Location / LateralityCollection Method / VolumeCollection TimeReceived Time 02/03/2025 11:33 AM EDT Narrative 02/04/2025 8:36 AM EDT NAME: ??GIDEON ONTIVEROS : 2005 SEX: F Accession Number: [id number] ORDERING PHYSICIAN: SACHIN ROJO REFERRING PHYSICIAN: LESLIE HOLLEY Coding Procedures ? 86292: Follow-up Ultrasound, per fetus Indication Screening for follow-up survey, Supervision of high risk - (EIF, Left club foot). History OB History ? 2. Para 1 ? [id number] Maternal Assessment Physical Exam ??Height 160 cm, 5 ft 3 in. Initial weight 66 kg, 145 lb. Initial BMI 25.69 kg/m?? Method Transabdominal ultrasound examination. View: Suboptimal view: limited by late gestational age. Doll . Number of fetuses: 1 Dating LMP on: ?06/14/2024 GA by LMP ?33 w + 3 d ROSALIA by LMP: ?03/21/2025 Previous Ultrasound on: ?08/19/2024 Type of prior assessment: ?GA GA at prior assessment date ?9 w + 4 d GA by previous U/S ? 33 w + 4 d ROSALIA by previous Ultrasound: ?03/20/2025 Ultrasound examination on: ? 02/03/2025 GA by U/S based upon: ??AC, BPD, Femur, HC GA by U/S ?33 w + 5 d ROSALIA by U/S: ?03/19/2025 Assigned: ?based on the LMP, selected on 01/04/2025 Assigned GA (weeks days) ? 33 w + 3 d Assigned ROSALIA: ??03/21/2025 General Evaluation Cardiac activity Present. FHR 144 bpm. Presentation: cephalic Placenta: Placental site: posterior, previously documented away from cervical os Umbilical cord: Cord vessels: 3 vessel cord. Insertion site: normal insertion Amniotic fluid: Amount of AF: normal amount. MVP 6.9 cm Biometry Standard BPD ?83.7 mm 33w 5d 53% Hadlock OFD ?109.5 mm ?36w 2d 96% Ruba HC ? 308.7 mm ?34w 3d 39% Hadlock Cerebellum tr ??42.9 mm 33w 4d 34% Hill AC ? 303.6 mm ?34w 2d 77% Hadlock Femur ??62.9 mm 32w 4d 18% Hadlock Humerus ?55.5 mm 32w 2d 29% Ruba HC / AC ?1.02 EFW ?2,274 g ??53% Hadlock EFW (lb) ? 5 lb EFW (oz) ? 0 oz EFW by: ?Hadlock (FVF-ZW-ZC-FL) Extended Tibia ??51.5 mm 30w 5d 4% Ruba Neurosurgery Physician ? 1.4 mm CM ? 7.8 mm ?? 62% Nicolaides Head / Face / Neck Cephalic index 0.76 ? 14% Nicolaides Nasal bone: ?documented previously Extremities / Bony Struc FL / BPD ? 0.75 FL / HC ?0.20 FL / AC ?0.21 Other Structures FHR ?144 bpm Anatomy The following structures appear abnormal: Extremities/Skeleton: Left foot. Skeleton The following structures appear normal: Head/Neck: Cranium. Lateral ventricles. Cavum septi pellucidi. Cerebellum. Cisterna magna. Parenchyma. Vermis. Heart/Thorax: 4-chamber view. 3-vessel view. Situs. Cardiac position. Cardiac axis. Cardiac size. Cardiac rhythm. ? Right lung. Left lung. Diaphragm. Abdomen: Abdom. wall. Stomach. Kidneys. Bladder. Spine: Cervical spine. Lumbar spine. Extremities / ??Left forearm. Skeleton The following structures could not be adequately visualized: Head / Neck ?Midline falx. Face: Profile. Heart / Thorax Aortic arch view. Abdomen ?Right renal artery. Left renal artery. Spine ??Thoracic spine. Sacral spine. The following structures were documented previously: Head / Neck ?Choroid plexus. ? Neck. Face ?? Lips. Nose. Nasal bone. Maxilla. Mandible. Orbits. Heart / Thorax RVOT view. LVOT view. 1-upyjhf-mqttxzq view. Bicaval view. Ductal arch view. Interventricular septum. ? Great vessels. Abdomen ?Cord insertion. Small bowel. Large bowel. Genitals. Extremities / ??Right upper arm. Right forearm. Right hand. Left upper arm. Left hand. Right upper leg. Right lower leg. ? Right foot. Left upper leg. Left lower leg. Maternal Structures Uterus Visualized Cervix Suboptimal ? Approach - Transabdominal Right Ovary ?Not visualized Left Ovary ? Not visualized Cul de Sac ? Suboptimal Impression Single live intrauterine . 33w 3d. Normal growth. EFW measures at the 53%, AC measures at the 77%. Echogenic focus in the cardiac ventricle not appreciated on today's exam. 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 Cavum vergae again noted on today's exam, which is a normal variant. Amniotic fluid MVP measures 6.9 cm. Recommendations Please see [facility] recommendations from prior clinical and/or ultrasound report documentation. Subsequent follow up or other follow up as clinically determined by primary OB provider unless otherwise specified by [facility]. Results forwarded to ordering provider so they can follow up with the patient as necessary. Procedure Note María Fields MD - 02/04/2025 NAME: GIDEON ONTIVEROS : 2005 SEX: F Accession Number: [id number] ORDERING PHYSICIAN: SACHIN ROJO REFERRING PHYSICIAN: LESLIE HOLLEY Coding Procedures 97116: Follow-up Ultrasound, per fetus Indication Screening for follow-up survey, Supervision of high risk - (EIF,Left club foot). History OB History 2. Para 1 [id number] Maternal Assessment Physical Exam Height 160 cm, 5 ft 3 in. Initial weight 66 kg, 145 lb.Initial BMI 25.69 kg/m?? Method Transabdominal ultrasound examination. View: Suboptimal view: limited bylate gestational age. Doll . Number of fetuses: 1 Dating LMP on: 06/14/2024 GA by LMP 33 w + 3 d ROSALIA by LMP: 03/21/2025 Previous Ultrasound on: 08/19/2024 Type of prior assessment: GA GA at prior assessment date 9 w + 4 d GA by previous U/S 33 w + 4 d ROSALIA by previous Ultrasound: 03/20/2025 Ultrasound examination on: 02/03/2025 GA by U/S based upon: AC, BPD, Femur, HC GA by U/S 33 w + 5 d ROSALIA by U/S: 03/19/2025 Assigned: based on the LMP, selected on 01/04/2025 Assigned GA (weeks days) 33 w + 3 d Assigned ROSALIA: 03/21/2025 General Evaluation Cardiac activity Present. FHR 144 bpm. Presentation: cephalic Placenta: Placental site: posterior, previously documented away fromcervical os Umbilical cord: Cord vessels: 3 vessel cord. Insertion site: normalinsertion Amniotic fluid: Amount of AF: normal amount. MVP 6.9 cm Biometry Standard BPD 83.7 mm 33w 5d 53% Hadlock OFD 109.5 mm 36w 2d 96% Ruba HC 308.7 mm 34w 3d 39% Hadlock Cerebellum tr 42.9 mm 33w 4d 34% Hill AC 303.6 mm 34w 2d 77% Hadlock Femur 62.9 mm 32w 4d 18% Hadlock Humerus 55.5 mm 32w 2d 29% Ruba HC / AC 1.02 EFW 2,274 g 53% Hadlock EFW (lb) 5 lb EFW (oz) 0 oz EFW by: Hadlock (EGA-KJ-EL-FL) Extended Tibia 51.5 mm 30w 5d 4% Ruba Neurosurgery Physician 1.4 mm CM 7.8 mm 62% Nicolaides Head / Face / Neck Cephalic index 0.76 14% Nicolaides Nasal bone: documented previously Extremities / Bony Struc FL / BPD 0.75 FL / HC 0.20 FL / AC 0.21 Other Structures FHR 144 bpm Anatomy The following structures appear abnormal: Extremities/Skeleton: Left foot. Skeleton The following structures appear normal: Head/Neck: Cranium. Lateral ventricles. Cavum septi pellucidi. Cerebellum. Cisterna magna. Parenchyma. Vermis. Heart/Thorax: 4-chamber view. 3-vessel view. Situs. Cardiac position.Cardiac axis. Cardiac size. Cardiac rhythm. Right lung. Left lung. Diaphragm. Abdomen: Abdom. wall. Stomach. Kidneys. Bladder. Spine: Cervical spine. Lumbar spine. Extremities / Left forearm. Skeleton The following structures could not be adequately visualized: Head / Neck Midline falx. Face: Profile. Heart / Thorax Aortic arch view. Abdomen Right renal artery. Left renal artery. Spine Thoracic spine. Sacral spine. The following structures were documented previously: Head / Neck Choroid plexus. Neck. Face Lips. Nose. Nasal bone. Maxilla. Mandible. Orbits. Heart / Thorax RVOT view. LVOT view. 6-cadrxw-xzxlcnr view. Bicaval view.Ductal arch view. Interventricular septum. Great vessels. Abdomen Cord insertion. Small bowel. Large bowel. Genitals. Extremities / Right upper arm. Right forearm. Right hand. Left upper arm.Left hand. Right upper leg. Right lower leg. Right foot. Left upper leg. Left lower leg. Maternal Structures Uterus Visualized Cervix Suboptimal Approach - Transabdominal Right Ovary Not visualized Left Ovary Not visualized Cul de Sac Suboptimal Impression Single live intrauterine . 33w 3d. Normal growth. EFW measures at the 53%, AC measures at the 77%. Echogenic focus in the cardiac ventricle not appreciated on today'sexam. 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 Cavum vergae again noted on today's exam, which is a normal variant. Amniotic fluid MVP measures 6.9 cm. Recommendations Please see [facility] recommendations from prior clinical and/or ultrasoundreport documentation. Subsequent follow up or other follow up as clinically determined byprimary OB provider unless otherwise specified by M. Results forwarded to ordering provider so they can follow up with thepatient as necessary. Authorizing ProviderResult TypeResult StatusSachin LOWRYG US ORDERABLES Final Result * Unlisted Lab Test (01/04/2025)Specimen (Source)Anatomical Location / LateralityCollection Method / VolumeCollection TimeReceived TimeBloodVenous blood / Ajietfw0201/04/2025 Narrative Authorizing ProviderResult TypeResult StatusSachin Rojo MDOSBORNE COUNTY [facility] BLOOD ORDERABLESFinal ResultPerforming OrganizationAddressCity/State/ZIP CodePhone Number MANUALLY TRANSCRIBED RESULTS from Last 3 Months Insurance * Guarantor: Luigi MenesesAccount TypeRelation to PatientDate of BirthPhone Billing AddressPersonal/PmfopxEvzbsb99/22/1979 [facility] [address] Care Teams Team MemberRelationshipSpecialtyStart DateEnd Date Richie Tinajero DO [address] [facility], [place] [address] PCP - GeneralFamily Medicine07/10/22
--- OUTSIDE RECORDS SUMMARY | 2025-03-13 09:31 | XMS_ITS | Encounter Summary ---
Author Organization [facility] Address [address] [place] [address] Care Team Providers Care Pastry Mixer Name Role Phone Richie Tinajero MD Primary Care Provider + [phone] Encounter Details DateTypeDepartmentCare Team (Latest Contact Info)Wrlucgtpblu86/15/2025bstract [facility] [address] [place] [address] Dwain Kelley DO [address] [place] [address] Social History Tobacco UseTypesPacks/DayYears UsedDateSmoking Tobacco: NeverSmokeless Tobacco: NeverAlcohol UseStandard Drinks/WeekCommentsNever0 (1 standard drink = 0.6 oz pure alcohol)PHQ-2AnswerDate RecordedPatient Health Questionnaire-2 Score0 10/21/2024Estimated Date of SwjsgahpKogmpmllQam53/03/2025Based on last menstrual period of 06/14/2024 (Approximate)Sex and Gender InformationValueDate RecordedSex Assigned at IzzskEbgpqb22/16/2024 9:36 AM EDTLegal SexFemale 09/08/2023 11:04 AM EDTGender VrfjnutjXilxpw92/16/2024 9:36 AM EDTSexual BokxfgpawlkXerkydzw53/16/2024 9:36 AM EDTdocumented as of this encounter Plan of Treatment DateTypeDepartmentCare Team (Latest Contact Info)Zbfjerrsman98/29/2025 10:20 AM EDTRoutine [facility] [address] [place] [address] Tiffani Moyer PA [address] [place], [place] [id number] documented as of this encounter Visit Diagnoses Not on filedocumented in this encounter Care Teams Team MemberRelationshipSpecialtyStart DateEnd Date Richie Tinajero MD PCP - GeneralFamily Medicine09/08/23documented as of this encounter
--- OUTSIDE RECORDS SUMMARY | 2025-03-13 09:31 | XMS_ITS | Encounter Summary ---
Author Organization [facility] Address [address] [facility] [place] [address] Care Team Providers Care Laboratory Operations Coordinator Name Role Phone Richie Tinajero MD Primary Care Provider + [phone] Encounter Details DateTypeDepartmentCare Team (Latest Contact Info)Kbevencghsl92/15/2025Travel Social History Tobacco UseTypesPacks/DayYears UsedDateSmoking Tobacco: NeverSmokeless Tobacco: NeverAlcohol UseStandard Drinks/WeekCommentsNever0 (1 standard drink = 0.6 oz pure alcohol)PHQ-2AnswerDate RecordedPatient Health Questionnaire-2 Score0 10/21/2024Estimated Date of NhmdvqqhKickwnegChy97/03/2025Based on last menstrual period of 06/14/2024 (Approximate)Sex and Gender InformationValueDate RecordedSex Assigned at KxhaoMpendj33/16/2024 9:36 AM EDTLegal SexFemale 09/08/2023 11:04 AM EDTGender VirhjqsnXbtibl87/16/2024 9:36 AM EDTSexual GnmllgexbfyBtjntagy66/16/2024 9:36 AM EDTdocumented as of this encounter Plan of Treatment DateTypeDepartmentCare Team (Latest Contact Info)Cyftzoomobx07/29/2025 10:20 AM EDTRoutine [facility] [address] [place] [address] [place] [address] Tiffani Moyer PA [address] [place] [address] [place] [address] documented as of this encounter Visit Diagnoses Not on filedocumented in this encounter Care Teams Team MemberRelationshipSpecialtyStart DateEnd Date Richie Tinajero MD PCP - GeneralFamily Medicine09/08/23documented as of this encounter
--- OUTSIDE RECORDS SUMMARY | 2025-03-13 09:31 | XMS_ITS | Clinical Summary ---
Author Organization [facility] Address [address] [place] [place] [address] Care Team Providers Care Inspector Fibrous Wallboard Name Role Phone Richie Tinajero MD Primary Care Provider [phone] Allergies No known active allergies Medications MedicationSigDispense QuantityRefillsLast FilledStart DateEnd DateStatus Vit-Fe Fumarate-FA ( Vitamins) 27-0.8 MG tablet Take by mouthActive Encounters DateTypeDepartmentCare DkggOcvixwzdftw42/22/2025 2:50 PM EDTRoutine [facility] THOM[facility] [address] [place] [address] [place] [address] Tiffani Moyer PA Third trimester ([facility]); 38 weeks gestation of ([facility])03/09/2025amboo flowsheet [facility] THOM[facility] [address] [place] [address] [place] [address] Tiffani Moyer PA 03/03/2025 10:20 AM EDTRoutine [facility] [place] [address] Tiffani Moyer PA Third trimester ([facility]); 37 weeks gestation of ([facility])03/03/2025amboo flowsheet [facility] THOMAS [address] [place] [address] [place] [address] Tiffani Moyer PA 03/02/20250466Emvatl54/15/2025bstract [facility] [address] [place] [address] Leslie Kelley DO 02/24/2025 2:20 PM EDTRoutine [facility] [place] [facility] [address] [place] [address] Shahla Reynolds NP Third trimester ([facility]); 36 weeks gestation of ([facility])02/24/2025amboo flowsheet [facility] [address] [place] [address] [place] [address] Shahla Reynolds NP 02/24/20254349Wgqkcl32/01/2025 1:00 PM EDTRoutine [facility] OBKAVON [address] [place] [address] [place] [address] Shahla Reynolds NP 35 weeks gestation of ([facility]); Third trimester ([facility]); 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02/16/2025[facility] [employer] flowsheet [facility] [address] [place] [address] Shahla Reynolds NP 02/02/2025 9:00 AM EDTRoutine [facility] [address] [place] [address] [place] [address] Shahla Reynolds NP Third trimester ([facility]); 33 weeks gestation of ([facility])02/02/2025amb flowsheet [facility] [address] [place] [address] Shahla Reynolds NP 01/26/20259924Syurda20/04/2025 9:00 AM EDTRoutine [facility] OBGYCarla [address] [place] [address] [place] [address] Leslie Kelley, Third trimester ([facility]); 31 weeks gestation of ([facility])01/20/2025amb flowsheet [facility] [address] [place] [address] [place] [address] Leslie Kelley, 01/13/20254576Wwxelg48/20/2025 1:40 PM EDTRoutine [facility] [address] [place] [address] [place] [address] Leslie Kelley, Third trimester ([facility]); 29 weeks gestation of ([facility]); 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01/05/2025amb flowsheet [facility] [address] [place] [address] [place] [address] Leslie Kelley, 01/04/2025External Result Encounter [facility] [address] [place] [address] [place] [address] Leslie Kelley, 12/29/2024bstract [facility] [address] [place] [address] [place] [address] Leslie Kelley, 12/23/2024Orders Only [facility] OBARACELIN [address] [place] [address] [place] [address] Annabelle Bhakta 12/21/2024 11:20 AM EDTRoutine [facility] [address] [place] [address] [place] [address] Tiffani Moyer PA Second trimester ([facility]); 27 weeks gestation of ([facility]); size inconsistent with dates ([facility])12/21/2024Patient Outreach [facility] [address] [place] [place] [address] [phone] Tiffani Bucio LPN 12/21/2024amboo flowsheet [facility] [address] [place] [address] Tiffani Moyer PA 12/20/2024linisync Result Encounter [facility] External Department Unsolicited Leslie Kelley DO 12/17/2024Patient Outreach [facility] [address] [place] [address] Tiffani Bucio LPN from Last 3 Months Family History Medical HistoryRelationNameCommentsStrokeMaternal GrandfatherJohnt HuntDiabetes Maternal GrandmotherKay HuntHeart failureMaternal GrandmotherKay HuntDiabetes Paternal GrandmotherSandy BarneyRelationNameStatusCommentsMaternal Grandfather Johnt HuntMaternal GrandmotherKay HuntPaternal GrandmotherSandy Morgan Social History Tobacco UseTypesPacks/DayYears UsedDateSmoking Tobacco: NeverSmokeless Tobacco: Never Tobacco Cessation:Counseling Given: Not Answered Alcohol UseStandard Drinks/WeekCommentsNever0 (1 standard drink = 0.6 oz pure alcohol)PHQ-2AnswerDate RecordedPatient Health Questionnaire-2 Vzore293 Estimated Date of FkzkarhoFpbnrucyDfr22/03/2025ased on last menstrual period of 06/14/2024 (Approximate)Sex and Gender InformationValueDate RecordedSex Assigned at NoudcAgxxsm58/16/2024 9:36 AM EDTLegal RqbHrfajc14/22/2024 11:04 AM EDTGender ApshayraPdfrre48/16/2024 9:36 AM EDTSexual OrientationStraight 10/02/2023 9:36 AM EDT Last Filed Vital Signs Vital SignReadingTime TakenCommentsBlood Eddpewbf212/801 3:04 PM EDT Pulse--Temperature--Respiratory Rate--Oxygen Saturation--Inhaled Oxygen Concentration--Ygnzkh31.3 kg (199 lb)03/09/2025 3:04 PM SPLBjvjca920 cm (5' 3 ) 10/03/2023 10:38 AM EDTBody Mass Index35.25010/03/2023 10:38 AM EDT Plan of Treatment DateTypeDepartmentCare Team (Latest Contact Info)Zjicuvcfsqq60/29/2025 10:20 AM EDTRoutine [facility] [address] [place] [address] Tiffani Moyer PA [address] [place] [address] Procedures Procedure NamePriorityDate/TimeAssociated DiagnosisCommentsPOCT URINALYSIS GDVILGGYPjbhrcv87/22/2025 3:10 PM EDT Third trimester ([facility]) POCT URINALYSIS KXFJTRERErslzho05/16/2025 10:46 AM EDT Third trimester ([facility]) POCT URINALYSIS YMCPRLZMEewyuot85/09/2025 2:46 PM EDT 36 weeks gestation of ([facility]) POCT URINALYSIS MHLWAPSWDxpmtgm32/01/2025 1:16 PM EDT 35 weeks gestation of ([facility]) Third trimester ([facility]) POCT URINALYSIS VKYOUKJSJzklbmy55/17/2025 9:28 AM EDT Third trimester ([facility]) 33 weeks gestation of ([facility]) POCT URINALYSIS CWQSDZBDMuiegvg23/04/2025 9:44 AM EDT Third trimester ([facility]) POCT URINALYSIS JVHQCRFPWfjusel59/20/2025 1:55 PM EDT Third trimester ([facility]) 29 weeks gestation of ([facility]) US OB 14+ WEEKS ANATOMY SCAN01/04/2025 1:22 PM EDT POCT URINALYSIS VRKEKYALEsmgmem19/05/2025 11:55 AM EDT Second trimester ([facility]) HBSAG PUSACUTbiodez62/04/2025 12:29 PM EDT RAPID PLASMA REAGIN, ZQGOBMxyvbqs48/04/2025 12:29 PM EDT HCV ANTIBODY RFX TO QUANT WFZQzyhdpf91/04/2025 12:29 PM EDT ALL RUBELLA IGG CQPvnrjez38/04/2025 12:29 PM EDT HIV AB/P24 AG WITH CLNITZYvdzvsz61/04/2025 12:29 PM EDT ALL TYPE AND JYZTRCYgdzwem93/04/2025 12:29 PM EDT MLR HEMOGLOBIN V7AFiwyvlo00/04/2025 12:29 PM EDT ALL CBC WITH AUTO UYCZRvcysnz53/04/2025 12:29 PM EDT GLUCOSE 1 NWXWAicyjks24/04/2025 12:29 PM EDT H DRUG SCREEN RAPID (URINE)Mzeoyhg1912/20/2024 11:16 AM EDT from Last 3 Months Results * POCT urinalysis dipstick manually resulted (03/09/2025 3:10 PM EDT) Only the most recent of8 resultswithin the time period is included. ComponentValueRef RangeTest MethodAnalysis TimePerformed AtPathologist Signature Color, UAYellowClarity, UAClearGlucose, UANegativeNegative - 2000(110) ++++ mg/dLBilirubin, UANegativeNegative - 4(70) +++ mg/dLKetones, UANegativeNegative - 160(16) ++++ mg/dLSpec Grav, UA1.0151 - 1.03Blood, UANegativeNegative - 50 Hector/mcLpH, UA6.05 - 9Protein, UANegativeNegative - 2000(20) ++++ mg/dL Urobilinogen, UA1.00.2 - 12 mg/dLLeukocytes, UANegativeNegative - 500+++ Josemanuel/mcL Nitrite, UANegativeNegative - PositiveSpecimen (Source)Anatomical Location / LateralityCollection Method / VolumeCollection TimeReceived IcbmDqigj06/22/2025 3:10 PM EDT Narrative Authorizing ProviderResult TypeResult StatusVCU Medical Center TEST ENTER/EDIT ORDERABLESFinal Result * US OB 14+ weeks anatomy scan (01/04/2025 1:22 PM EDT)Anatomical Region LateralityModalityBodyUltrasoundSpecimen (Source)Anatomical Location / LateralityCollection Method / VolumeCollection TimeReceived Time01/04/2025 1:22 PM EDT Narrative 01/04/2025 1:21 PM EDT THIS EXAM WAS PERFORMED AT [facility] NAME: ??NIHARIKA ONTIVEROS : 2005 SEX: F Accession Number: [id number] ORDERING PHYSICIAN: LESLIE KELLEY REFERRING PHYSICIAN: LESLIE KELLEY Coding Procedures ? 40368: Ultrasound, uterus, real time with image documentation, and maternal evaluation ? plus detailed anatomic examination, transabdominal approach;single or first gestation Indication Screening for Anatomic Survey, Supervision of high risk - (EIF, Left club foot). History OB History ? 2. Para 1 ? [id number] Maternal Assessment Physical Exam ??Height 160 cm, 5 ft 3 in. Weight 82 kg, 181 lb. Initial weight 66 kg, 145 lb. BMI 32.06 kg/m???. Initial ? BMI 25.69 kg/m???. Weight gain 16 kg, 36 lb Method Transabdominal ultrasound examination. View: Suboptimal view: limited by position. Suboptimalview: limited by late gestational age. Doll . Number of fetuses: 1 Dating LMP on: ?06/14/2024 GA by LMP ?29 w + 1 d ROSALIA by LMP: ?03/21/2025 Previous Ultrasound on: ?08/19/2024 Type of prior assessment: ?GA GA at prior assessment date ?9 w + 4 d GA by previous U/S ? 29 w + 2 d ROSALIA by previous Ultrasound: ?03/20/2025 Ultrasound examination on: ? 01/04/2025 GA by U/S based upon: ??AC, BPD, Femur, HC GA by U/S ?29 w + 6 d ROSALIA by U/S: ?03/16/2025 Assigned: ?based on the LMP, selected on 01/04/2025 Assigned GA (weeks days) ? 29 w + 1 d Assigned ROSALIA: ??03/21/2025 General Evaluation Cardiac activity Present. FHR 138 bpm. Presentation: cephalic Placenta: Placental site: posterior, away from cervical os Umbilical cord: Cord vessels: 3 vessel cord. Insertion site: suboptimal Amniotic fluid: Amount of AF: normal amount. MVP 5.7 cm Biometry Standard BPD ?75.5 mm 30w 2d 74% Hadlock OFD ?95.8 mm 31w 0d 90% Ruba HC ? 270.9 mm ?29w 4d 28% Hadlock Cerebellum tr ??34.7 mm 29w 0d 55% Hill AC ? 260.5 mm ?30w 1d 75% Hadlock Femur ??55.3 mm 29w 1d 35% Hadlock Humerus ?49.3 mm 29w 0d 36% Ruba HC / AC ?1.04 EFW ?1,458 g ??61% Hadlock EFW (lb) ? 3 lb EFW (oz) ? 3 oz EFW by: ?Hadlock (PEK-EU-OC-FL) Extended Tibia ??48.4 mm 29w 1d 52% Ruba Claim Approver ? 2.6 mm CM 4.0 mm <1% Nicolaides Inner IOD ?20.3 mm Outer IOD ?46.8 mm Head / Face / Neck Cephalic index 0.79 ? 48% Nicolaides Nasal bone: ?present Extremities / Bony Struc FL / BPD ? 0.73 FL / HC ?0.20 FL / AC ?0.21 Other Structures FHR ?138 bpm Anatomy The following structures appear abnormal: Heart/Thorax: 4-chamber view: echogenic intracardiac focus. Extremities/Skeleton: Left foot: talipes. Skeleton The following structures appear normal: Head/Neck: Cranium. Lateral ventricles. Choroid plexus. Cavum septi pellucidi. Cerebellum. Cisternamagna. ? Neck. Face: Lips. Nose. Nasal bone. Maxilla. Mandible. Orbits. Heart / Thorax RVOT view. LVOT view. 6-quxiaq-joywgfq view. Situs. Bicaval view. Ductal arch view. Interventricular ? septum. Great vessels. Cardiac position. Cardiac axis. Cardiac size. Cardiac rhythm. ? Diaphragm. Abdomen: Abdom. wall. Cord insertion. Stomach. Kidneys. Bladder. Small bowel. Large bowel. Genitals. Extremities / ??Right upper arm. Right forearm. Left upper arm. Right upper leg. Right lower leg. Right foot. Left upper ? leg. Left lower leg. The following structures could not be adequately visualized: Head / Neck ?Midline falx. Parenchyma. Vermis. Face ?? Profile. Heart / Thorax 3-vessel view. Aortic arch view. The following structures could not be examined: Heart / Thorax Right lung. Left lung. Abdomen ?Right renal artery. Left renal artery. Spine: Cervical spine. Thoracic spine. Lumbar spine. Sacral spine. Extremities / ??Right hand. Left forearm. Left hand. Skeleton Head / Neck other: cavum vergae Maternal Structures Uterus Visualized Cervix Suboptimal ? Approach - Transabdominal Right Ovary ?Not visualized Left Ovary ? Not visualized Cul de Sac ? Suboptimal Impression Single viable intrauterine consistent with 29w 1d with an ROSALIA of 03/21/2025. Echogenic focus identified in the cardiac ventricle. 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 Cavum vergae noted on today's exam, which is a normal variant. Amniotic fluid MVP measures 5.7 cm. Recommendations Please see [facility] documentation from today. The patient is scheduled in four week(s) to complete anatomic survey. Subsequent follow up or other follow up as clinically determined by primary OB provider unless otherwise specified by [facility]. Results forwarded to ordering provider so they can follow up with the patient as necessary. Procedure Note Radiology, RadiologistMD - 01/04/2025 THIS EXAM WAS PERFORMED AT [facility] NAME: NIHARIKA ONTIVEROS : 2005 SEX: F Accession Number: [id number] ORDERING PHYSICIAN: LESLIE KELLEY REFERRING PHYSICIAN: LESLIE KELLEY Coding Procedures 64730: Ultrasound, uterus, real time with image documentation, and maternal evaluation plus detailed anatomic examination, transabdominalapproach;single or first gestation Indication Screening for Anatomic Survey, Supervision of high risk - (EIF,Left club foot). History OB History 2. Para 1 [id number] Maternal Assessment Physical Exam Height 160 cm, 5 ft 3 in. Weight 82 kg, 181 lb. Initialweight 66 kg, 145 lb. BMI 32.06 kg/m???. Initial BMI 25.69 kg/m???. Weight gain 16 kg, 36 lb Method Transabdominal ultrasound examination. View: Suboptimal view: limited byfetal position. Suboptimal view: limited by late gestational age. Doll . Number of fetuses: 1 Dating LMP on: 06/14/2024 GA by LMP 29 w + 1 d ROSALIA by LMP: 03/21/2025 Previous Ultrasound on: 08/19/2024 Type of prior assessment: GA GA at prior assessment date 9 w + 4 d GA by previous U/S 29 w + 2 d ROSALIA by previous Ultrasound: 03/20/2025 Ultrasound examination on: 01/04/2025 GA by U/S based upon: AC, BPD, Femur, HC GA by U/S 29 w + 6 d ROSALIA by U/S: 03/16/2025 Assigned: based on the LMP, selected on 01/04/2025 Assigned GA (weeks days) 29 w + 1 d Assigned ROSALIA: 03/21/2025 General Evaluation Cardiac activity Present. FHR 138 bpm. Presentation: cephalic Placenta: Placental site: posterior, away from cervical os Umbilical cord: Cord vessels: 3 vessel cord. Insertion site: suboptimal Amniotic fluid: Amount of AF: normal amount. MVP 5.7 cm Biometry Standard BPD 75.5 mm 30w 2d 74% Hadlock OFD 95.8 mm 31w 0d 90% Ruba HC 270.9 mm 29w 4d 28% Hadlock Cerebellum tr 34.7 mm 29w 0d 55% Hill AC 260.5 mm 30w 1d 75% Hadlock Femur 55.3 mm 29w 1d 35% Hadlock Humerus 49.3 mm 29w 0d 36% Ruba HC / AC 1.04 EFW 1,458 g 61% Hadlock EFW (lb) 3 lb EFW (oz) 3 oz EFW by: Hadlock (TKF-WD-TM-FL) Extended Tibia 48.4 mm 29w 1d 52% Ruba Claim Approver 2.6 mm CM 4.0 mm <1% Nicolaides Inner IOD 20.3 mm Outer IOD 46.8 mm Head / Face / Neck Cephalic index 0.79 48% Nicolaides Nasal bone: present Extremities / Bony Struc FL / BPD 0.73 FL / HC 0.20 FL / AC 0.21 Other Structures FHR 138 bpm Anatomy The following structures appear abnormal: Heart/Thorax: 4-chamber view: echogenic intracardiac focus. Extremities/Skeleton: Left foot: talipes. Skeleton The following structures appear normal: Head/Neck: Cranium. Lateral ventricles. Choroid plexus. Cavum septipellucidi. Cerebellum. Cisterna magna. Neck. Face: Lips. Nose. Nasal bone. Maxilla. Mandible. Orbits. Heart / Thorax RVOT view. LVOT view. 4-ypwzup-jdmsrlz view. Situs. Bicavalview. Ductal arch view. Interventricular septum. Great vessels. Cardiac position. Cardiac axis. Cardiacsize. Cardiac rhythm. Diaphragm. Abdomen: Abdom. wall. Cord insertion. Stomach. Kidneys. Bladder. Smallbowel. Large bowel. Genitals. Extremities / Right upper arm. Right forearm. Left upper arm. Right upperleg. Right lower leg. Right foot. Left upper leg. Left lower leg. The following structures could not be adequately visualized: Head / Neck Midline falx. Parenchyma. Vermis. Face Profile. Heart / Thorax 3-vessel view. Aortic arch view. The following structures could not be examined: Heart / Thorax Right lung. Left lung. Abdomen Right renal artery. Left renal artery. Spine: Cervical spine. Thoracic spine. Lumbar spine. Sacral spine. Extremities / Right hand. Left forearm. Left hand. Skeleton Head / Neck other: cavum vergae Maternal Structures Uterus Visualized Cervix Suboptimal Approach - Transabdominal Right Ovary Not visualized Left Ovary Not visualized Cul de Sac Suboptimal Impression Single viable intrauterine consistent with 29w 1d with an ROSALIA of 03/21/2025. Echogenic focus identified in the cardiac ventricle. 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 Cavum vergae noted on today's exam, which is a normal variant. Amniotic fluid MVP measures 5.7 cm. Recommendations Please see [facility] documentation from today. The patient is scheduled in four week(s) to complete anatomic survey. Subsequent follow up or other follow up as clinically determined byprimary OB provider unless otherwise specified by [facility]. Results forwarded to ordering provider so they can follow up with thepatient as necessary. Authorizing ProviderResult TypeResult StatusCorey Allie DOIMG OB US PROCEDURES Final Result * GLUCOSE 1 HOUR (12/20/2024 12:29 PM EDT)ComponentValueRef RangeTest Method Analysis TimePerformed AtPathologist SignatureGLUCOSE 1 PSRL692<130 mg/dLTBH Specimen (Source)Anatomical Location / LateralityCollection Method / Volume Collection TimeReceived Time12/20/2024 12:29 PM EDT12/20/2024 12:31 PM EDT Narrative [facility] - 12/20/2024 1:04 PM EDT Authorizing ProviderResult TypeResult StatusCorey Allie DOLAB BLOOD ORDERABLES Final ResultPerforming OrganizationAddressCity/State/ZIP CodePhone Number [facility] * HBSAG SCREEN (12/20/2024 12:29 PM EDT)ComponentValueRef RangeTest Method Analysis TimePerformed AtPathologist SignatureHBSAG SCREENNegativeNegativeTBH Comment: Performed at: ??[address] ??[id number] Crusher: Neo Gaytan PhD, Phone: ??[phone] Specimen (Source)Anatomical Location / LateralityCollection Method / Volume Collection TimeReceived Time12/20/2024 12:29 PM EDT12/20/2024 12:31 PM EDT Narrative [facility] - 12/21/2024 12:09 PM EDT Authorizing ProviderResult TypeResult StatusCorey Allie DOLAB BLOOD ORDERABLES Final ResultPerforming OrganizationAddressCity/State/ZIP CodePhone Number [facility] * RAPID PLASMA REAGIN, QUANT (12/20/2024 12:29 PM EDT)ComponentValueRef Range Test MethodAnalysis TimePerformed AtPathologist SignatureRAPID PLASMA REAGIN, QUANTNon ReactiveNonRea<1:1 titerTBHComment: Please Note: This test does not meet current guidelines for screening and diagnosis of syphilis. This test is intended for following treatment response in patients being treated for syphilis infection. To screen for syphilis infection, a reflex cascade that includes both RPR and a treponema-specific assay should be utilized, such as Treponema pallidum (Syphilis) Screening [place] (724326) or Rapid Plasma Reagin (RPR) Test With Reflex to Quantitative RPR and Confirmatory Treponema pallidum Antibodies (152827). Performed at: ??[address] ??[id number] Crusher: Neo Gaytan PhD, Phone: ??[phone] Specimen (Source)Anatomical Location / LateralityCollection Method / Volume Collection TimeReceived Time12/20/2024 12:29 PM EDT12/20/2024 12:31 PM EDT Narrative [facility] - 12/21/2024 12:09 PM EDT Authorizing ProviderResult TypeResult StatusCorey Allie DOLAB BLOOD ORDERABLES Final ResultPerforming OrganizationAddressty/State/ZIP CodePhone Number [facility] * HIV AB/P24 AG WITH REFLEX (12/20/2024 12:29 PM EDT)ComponentValueRef RangeTest MethodAnalysis TimePerformed AtPathologist SignatureHIV AB/P24 AG SCREENNon ReactiveNon ReactiveTBHComment: HIV-1/HIV-2 antibodies and HIV-1 p24 antigen were NOT detected. There is no laboratory evidence of HIV infection. HIV Negative Performed at: ??[address] ??[id number] Crusher: Neo Gaytan PhD, Phone: ??[phone] Specimen (Source)Anatomical Location / LateralityCollection Method / Volume Collection TimeReceived Time12/20/2024 12:29 PM EDT12/20/2024 12:31 PM EDT Narrative [facility] - 12/21/2024 5:08 AM EDT Authorizing ProviderResult TypeResult StatusCorey Allie DOLAB BLOOD ORDERABLES Final ResultPerforming OrganizationAddressCity/State/ZIP CodePhone Number [facility] * HCV ANTIBODY RFX TO QUANT PCR (12/20/2024 12:29 PM EDT)ComponentValueRef Range Test MethodAnalysis TimePerformed AtPathologist SignatureHCV ABNon ReactiveNon ReactiveTBHINTERPRETATION:Comment.TBHComment: Not infected with HCV unless early or acute infection is suspected (which may be delayed in an immunocompromised individual), or other evidence exists to indicate HCV infection. Performed at: ??[address] ??[id number] Crusher: Neo Gaytan PhD, Phone: ??[phone] Specimen (Source)Anatomical Location / LateralityCollection Method / Volume Collection TimeReceived Time12/20/2024 12:29 PM EDT12/20/2024 12:31 PM EDT Narrative [facility] - 12/21/2024 8:08 AM EDT Authorizing ProviderResult TypeResult StatusCorey Allie DOLAB BLOOD ORDERABLES Final ResultPerforming OrganizationAddPennsylvania Hospitalty/State/ZIP CodePhone Number [facility] * MLR HEMOGLOBIN A1C (12/20/2024 12:29 PM EDT)ComponentValueRef RangeTest Method Analysis TimePerformed AtPathologist SignatureGLYCOHEMOGLOBIN A1C5.04.5 - 6.2 %TBHComment: ADA RECOMMENDED LIMIT 4.0 - 6.0 ADA THERAPEUTIC TARGET < 7.0 ACTION SUGGESTED > 7.0 ESTIMATED AVERAGE GZWQBMP86qm/dLTBHSpecimen (Source)Anatomical Location / LateralityCollection Method / VolumeCollection TimeReceived Time12/20/2024 12:29 PM EDT12/20/2024 12:31 PM EDT Narrative [facility] - 12/20/2024 1:52 PM EDT Authorizing ProviderResult TypeResult StatusCorey Allie DOCLINISYNCFinal Result Performing OrganizationAddressty/State/ZIP CodePhone Number [facility] * ALL TYPE AND SCREEN (12/20/2024 12:29 PM EDT)ComponentValueRef RangeTest MethodAnalysis TimePerformed AtPathologist SignatureBLOOD TYPEO NegativeTBH ANTIBODY SCREENNEGATIVETBHComment: Previous history of Anti-D due to RhIG not demonstrating at this time. Specimen (Source)Anatomical Location / LateralityCollection Method / Volume Collection TimeReceived Time12/20/2024 12:29 PM EDT12/20/2024 12:31 PM EDT Narrative [facility] - 12/20/2024 1:56 PM EDT [facility] , ?? Authorizing ProviderResult TypeResult StatusCorey Allie DOCLINISYNCFinal Result Performing OrganizationAddPennsylvania Hospitalty/State/ZIP CodePhone Number [facility] * ALL RUBELLA IGG AB (12/20/2024 12:29 PM EDT)ComponentValueRef RangeTest Method Analysis TimePerformed AtPathologist SignatureRUBELLA ANTIBODIES, IGG7.18 Immune >0.99 indexTBHComment: Non-immune <0.90 ?Equivocal ??0.90 - 0.99 Immune >0.99 Performed at: ??[facility] - [facility] [address] [place], [place] ??[id number] Crusher: Neo Gaytan PhD, Phone: ??[phone] Specimen (Source)Anatomical Location / LateralityCollection Method / Volume Collection TimeReceived Time12/20/2024 12:29 PM EDT12/20/2024 12:31 PM EDT Narrative [facility] - 12/21/2024 8:08 AM EDT Authorizing ProviderResult TypeResult StatusCorey Allie DOCLINISYNCFinal Result Performing OrganizationAddressCity/State/ZIP CodePhone Number [facility] * (ABNORMAL) ALL CBC WITH AUTO DIFF (12/20/2024 12:29 PM EDT)ComponentValueRef RangeTest MethodAnalysis TimePerformed AtPathologist SignatureTBH WBC14.0(H) 4.0 - 11.0 10 3/uLTBHTBH RBC3.80(L)4.20 - 5.40 10 6/uLTBHTBH HGB11.4(L)12.0 - 16.0 g/dLTBHTBH HCT33.9(L)36.0 - 48.0 %TBHTBH MCV89.281.0 - 99.0 fLTBHTBH MCH 30.026.7 - 34.0 pgTBHTBH MCHC33.629.9 - 35.2 g/dLTBHTBH RDW13.211.0 - 15.0 % TBHTBH [id number] - 450 10 3/uLTBHTBH MPV9.89.5 - 13.5 fLTBHNEUTROPHILS PERCENT AUTO73.843.0 - 75.0 %TBHLYMPHOCYTES PERCENT AUTO19.8(L)20.5 - 60.0 %TBH MONOCYTES PERCENT AUTO3.71.7 - 12.0 %TBHTBH EO %0.8(L)0.9 - 7.0 %TBHBASOPHILS PERCENT AUTO0.20.2 - 2.0 %TBHIMMATURE GRANULOCYTES PCT AUTO1.7(H)0.0 - 0.5 % TBHNEUTROPHILS ABSOLUTE AUTO10.3(H)1.4 - 6.5 10 3/uLTBHLYMPHOCYTES ABSOLUTE AUTO2.81.2 - 3.8 10 3/uLTBHMONOCYTES ABSOLUTE AUTO0.50.3 - 0.8 10 3/uLTBHTBH EO #0.10.0 - 0.7 10 3/uLTBHBASOPHILS ABSOLUTE AUTO0.00.0 - 0.1 10 3/uLTBH IMMATURE GRANULOCYTES ABS AUTO0.24(H)0.00 - 0.03 10 3/uLTBHSpecimen (Source) Anatomical Location / LateralityCollection Method / VolumeCollection Time Received Time12/20/2024 12:29 PM EDT12/20/2024 12:31 PM EDT Narrative [facility] - 12/20/2024 1:05 PM EDT Authorizing ProviderResult TypeResult StatusCorey Allie DOCLINISYNCFinal Result Performing OrganizationAddressCity/State/ZIP CodePhone Number [facility] * [facility] DRUG SCREEN RAPID (URINE) (12/20/2024 11:16 AM EDT)ComponentValueRef Range Test MethodAnalysis TimePerformed AtPathologist SignatureCANNABINOID SCREEN URINENEGATIVENEGATIVETBHPHENCYCLIDINE SCREEN URINENEGATIVENEGATIVETBHCOCAINE SCREEN URINENEGATIVENEGATIVETBHMETHAMPHETAMINES SCREEN URINENEGATIVENEGATIVE TBHOPIATE SCREEN URINENEGATIVENEGATIVETBHAMPHETAMINE SCREEN URINENEGATIVE NEGATIVETBHBENZODIAZEPINES SCREEN URINENEGATIVENEGATIVETBHTRICYCLIC ANTIDEPRESSANT URINENEGATIVENEGATIVETBHMETHADONE SCREEN URINENEGATIVENEGATIVE TBHBARBITURATES SCREEN URINENEGATIVENEGATIVETBHOXYCODONE SCREEN URINENEGATIVE NEGATIVETBHBUPRENORPHINE SCREEN URINENEGATIVENEGATIVETBHComment: DRUG CLASS TEST SYSTEM CUT-OFF CONCENTRATIONS ARE FOLLOWS: AMP (Amphetamine): 500 ng/mL BAR (Barbiturates): 200 ng/mL BZO (Benzodiazepines): 150 ng/mL BUP (Buprenorphine): 10 ng/mL KELLIE (Cocaine): 150 ng/mL mAMP (Methamphetamine): 500 ng/mL MTD (Methadone): 200 ng/mL OPI (Opiates): 100 ng/mL OXY (Oxycodone): 100 ng/mL PCP (Phencyclidine): 25 ng/mL THC (Cannabinoids): 50 ng/mL TCA (Trycyclic Antidepressants): 300 ng/mL Specimen (Source)Anatomical Location / LateralityCollection Method / Volume Collection TimeReceived Time12/20/2024 11:16 AM EDT12/20/2024 11:35 AM EDT Narrative [facility] - 12/20/2024 12:11 PM EDT Authorizing ProviderResult TypeResult StatusCorey Allie DOCLINISYNCFinal Result Performing OrganizationAddressCity/State/ZIP CodePhone Number [facility] from Last 3 Months Insurance Care Teams Team MemberRelationshipSpecialtyStart DateEnd Date Richie Tinajero MD PCP - GeneralFamily Medicine09/08/23
--- OUTSIDE RECORDS SUMMARY | 2025-03-13 09:31 | XMS_ITS | Encounter Summary ---
Author Organization [facility] Address [address] [place] [address] Care Team Providers Care Department Store General Manager Name Role Phone Richie Tinajero MD Primary Care Provider + [phone] Encounter Details DateTypeDepartmentCare Team (Latest Contact Info)Xuopxqxieer52/16/2025Bamboo flowsheet [facility] OBGY[facility]la [address] [place] [address] Tiffani Moyer PA [address] [place] [address] Social History Tobacco UseTypesPacks/DayYears UsedDateSmoking Tobacco: NeverSmokeless Tobacco: NeverAlcohol UseStandard Drinks/WeekCommentsNever0 (1 standard drink = 0.6 oz pure alcohol)PHQ-2AnswerDate RecordedPatient Health Questionnaire-2 Score0 10/21/2024Estimated Date of CyhqyjqxMcwmqeosByd15/03/2025Based on last menstrual period of 06/14/2024 (Approximate)Sex and Gender InformationValueDate RecordedSex Assigned at AxvhzMbyobp05/16/2024 9:36 AM EDTLegal SexFemale 09/08/2023 11:04 AM EDTGender XeoxizodFodytn18/16/2024 9:36 AM EDTSexual PegmxfucuwrLbudblzm17/16/2024 9:36 AM EDTdocumented as of this encounter Plan of Treatment DateTypeDepartmentCare Team (Latest Contact Info)Cojjfyzxaki86/29/2025 10:20 AM EDTRoutine [facility] THOMAS [address] [place] [address] Tiffani Moyer PA [address] [place] [address] documented as of this encounter Visit Diagnoses Not on filedocumented in this encounter Care Teams Team MemberRelationshipSpecialtyStart DateEnd Date Richie Tinajero MD PCP - GeneralFamily Medicine09/08/23documented as of this encounter
--- OUTSIDE RECORDS SUMMARY | 2025-03-13 09:31 | XMS_ITS | CCD ---
Author Organization [facility] Inform ion [facility] Care Team Providers Care Social Media Intern Name Role Phone DANIEL HEWITT Consulting Unavailable DANIEL HEWITT Admitting Unavailable DANIEL HEWITT Attending Unavailable Aracelis Wing Unavailable Richie Tinajero MD Primary Care Provider [phone] Richie Tinajero DO Primary Care Provider Richie Tinajero MD Primary Care Provider Richie Tinajero DO Primary Care Provider ALLIE, DWAIN R Referring Unavailable FURLOALLIE, RICHIE Daley Primary Care Unavailable DOMINICK ROJO Attending Unavailable ALLIE, DWAIN R Referring Unavailable FURLONG, RICHIE Daley Primary Care Unavailable ALLIE, DWAIN R Referring Unavailable FURLONG, RICHIE Daley Primary Care Unavailable DOMINICK ROJO Attending Unavailable ALLIE, DWAIN R Referring Unavailable FURLONG, RICHIE Daley Primary Care Unavailable ALLIE, DWAIN R Referring Unavailable FURLOALLIE, RICHIE Daley Primary Care Unavailable JOÃOTIFFANI HUNTER Attending Unavailable ALLIE, DWAIN Attending Unavailable ALLIE, DWIAN Attending Unavailable JOÃO, TIFFANI Attending Unavailable ALLIE, DWAIN Attending Unavailable JOÃO, TIFFANI Attending Unavailable ALLIE, DWAIN Attending Unavailable ALLIE, DWAIN Attending Unavailable GAIL, KAREN Attending Unavailable GAIL, KAREN Attending Unavailable GAIL, KAREN Attending Unavailable JOÃO, TIFFANI Attending Unavailable ALLIE, DWAIN Attending Unavailable ALLIE, DWAIN Attending Unavailable JOÃO, TIFFANI Attending Unavailable JOÃO, TIFFANI Attending Unavailable Medications Current Medications MedicationDrug Class(es)DatesSig (Normalized)Sig (Original)acetaminophen 325 mg oral tablet (1 source)take 1 tablet by mouth every four hours as neededAcetaminophen 325 MG 1 tablet as needed Orally every 4 hrs Activeprenatal no115/iron/folic acid ( 19 ORAL) (6 sources) no115/iron/folic acid ( 19 ORAL) Take by mouth in the morning. Activeprenatal no115/iron/folic acid ( 19 ORAL) Take by mouth daily. ActivePrenatal Vit-Fe Fumarate-FA ( Vitamins) 27-0.8 MG tablet (20 sources) Vit-Fe Fumarate-FA ( Vitamins) 27-0.8 MG tablet Take by mouth Active Completed/Discontinued Medications MedicationDrug Class(es)DatesSig (Normalized)Sig (Original)labetalol hydrochloride 200 mg oral tablet (12 sources)beta-Adrenergic BlockerStart: 03-30-2024 End: 11-88-8439bwth 1 tablet by mouth at bedtimelabetalol (Normodyne) 200 MG tablet Indications: Secondary hypertension (CMS/HCC) TAKE 1 TABLET (200 MG) BY MOUTH IN THE MORNING AND AT BEDTIME 180 tablet 06/25/2024 07/12/2024 Discontinuedlevonorgestrel 0.069494 mg/hr intrauterine system (1 source)Progestin, Progestin-containing Intrauterine DeviceStart: 07-12-2024 End: 60-01-2919Pbplxmgtapxugp intrauterine device 52 mgPrenatal MV-Min-Fe Fum-FA-DHA ( 1 PO) (20 sources) End: 17-17-9184Bpgtivfy MV-Min-Fe Fum-FA-DHA ( 1 PO) Take by mouth Daily 07/12/2024 DiscontinuedPrenatal MV-Min-Fe Fum-FA-DHA ( 1 PO) Take by mouth Daily Active Problems Active Problems Problem ClassificationProblemDateDocumented DateEpisodic/ChronicAnxiety disorders (1 source)Other specified anxiety disorders; Translations: [OTHER SPECIFIED ANXIETY DISORDERS]Onset: 23-82-6259NgxjeqmPbwtzdqdc infection; unspecified site (2 sources)Mycoplasma infection; Translations: [Mycoplasma infection, unspecified site]30-63-6498HsvtgksbCgohnzhanettk and screening for infectious disease (2 sources)Exposure to sexually transmissible disorder; Translations: [Contact with and (suspected) exposure to infections with a predominantly sexual mode of transmission]76-54-3875SzhlgbcwRkpxxhlgl disorders (2 sources)Missed period; Translations: [Irregular menstruation, unspecified] 07-01-5709QpyeinbBuqpq complications of ; puerperium affecting management of mother (3 sources)Disorder of structure; Translations: [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,single or unspecified fetus]01-04-2025 EpisodicOther complications of (2 sources) size does not accord with dates; Translations: [Uterine size- date discrepancy, unspecified trimester]51-16-9734JzjfomzjLogik complications of (6 sources) heart echogenicity on obstetric ultrasound scan; Translations: [Abnormal ultrasonic finding on screening of mother]Onset: 01-04-2025 51-85-1287AmklbkpzMezqv complications of (1 source)Abnormal ultrasonic finding on screening of mother; Translations: [Abnormal ultrasonic finding on screening of mother] Onset: 12-87-0766IzxlbpvtWbsks congenital anomalies (6 sources)Congenital talipes equinovarus of left foot; Translations: [Congenital talipes equinovarus, left foot]72-59-6073DbgvgrgFpzjf and delivery including normal (20 sources)Third trimester ; Translations: [Encounter for supervision of normal , unspecified, third trimester]68-91-6920OhkkwsybIqgyn screening for suspected conditions (not mental disorders or infectious disease) (2 sources)Ultrasound scan abnormal; Translations: [Abnormal findings on diagnostic imaging of other specifiedbody structures]81-89-1856FxzsrfbYpfrpnpn codes; unclassified (2 sources)Gestation period, 30 weeks; Translations: [30 weeks gestation of ]08-55-5146QvoyhhjkWivanbgq codes; unclassified (2 sources)Gestation period, 32 weeks; Translations: [32 weeks gestation of ]66-80-1059GpmogfgdBslqwdid codes; unclassified (2 sources)Gestation period, 34 weeks; Translations: [34 weeks gestation of ]59-86-1557YcjmzwnmSxxnnpqo codes; unclassified (4 sources)Gestation period, 36 weeks; Translations: [36 weeks gestation of ]51-58-9810RwnpnxdaMidnjajg codes; unclassified (4 sources)Gestation period, 37 weeks; Translations: [37 weeks gestation of ]58-35-8121QlqjxifhAoeuvqfw codes; unclassified (2 sources)Gestation period, 14 weeks; Translations: [14 weeks gestation of ]53-25-2691OxxtcsedCmtptolw codes; unclassified (2 sources)Gestation period, 18 weeks; Translations: [18 weeks gestation of ]05-94-3905TjdrvziwFlkgrzqk codes; unclassified (2 sources)Gestation period, 27 weeks; Translations: [27 weeks gestation of ]06-36-2246PcdzvncgVquyayzc codes; unclassified (2 sources)Gestation period, 29 weeks; Translations: [29 weeks gestation of ]77-39-0994SvoxfslmBaruxznb codes; unclassified (2 sources)Gestation period, 31 weeks; Translations: [31 weeks gestation of ]73-97-1460YkzxbplvOocqwoxk codes; unclassified (2 sources)Gestation period, 33 weeks; Translations: [33 weeks gestation of ]66-66-9566GxfcxsqfFwwofmei codes; unclassified (2 sources)Gestation period, 35 weeks; Translations: [35 weeks gestation of ]46-23-5193NxdhgrvyFhfbkkct codes; unclassified (2 sources)Gestation period, 38 weeks; Translations: [38 weeks gestation of ]20-17-4475XfymbbhsSodrq gestation; low weight; and growth retardation (2 sources)Uupmx-nsk-bvewx baby; Translations: [ small for gestational age, unspecified weight]84-25-2506RsovywqwYxfilob and intentional self-inflicted injury (4 sources)Poisoning by selective serotonin reuptake inhibitors, intentional self-harm, initial encounter; Translations: [POISON BERONICA SRI SELF-HARM INIT ENC] Onset: 91-24-4961Aicbkbjpeomx (1 source)Maternal care for other (suspected) abnormality and damage, cardiac anomalies, fetus 1;Translations: [Maternal care for other (suspected) abnormality and damage, cardiac anomalies, fetus 1] Onset: 36-20-4536Znrpuqbbzvqh (1 source)low estimated weightOnset: 74-31-7204Lsyoimtdcbgm (1 source)Maternal care for other (suspected) abnormality and damage, lower extremities anomalies, not applicable or unspecified; Translations: [Maternal care for other (suspected) abnormality and damage, lower extremities anomalies, not applicable or unspecified]Onset: 02-03-2025 Past or Other Problems Problem ClassificationProblemDateDocumented DateEpisodic/ChronicMood disorders (9 sources)Mood disordersOnset: 240058-37-5626Dyeqn screening for suspected conditions (not mental disorders or infectious disease) (15 sources)Patient encounter status; Translations: [Encounter for suspected anomaly ruled out]Onset: 516649-12-3341ZabtrdxrDlnrg upper respiratory infections (2 sources)Acute pharyngitis, unspecified; Translations: [Acute upper respiratory infection, unspecified]Onset: 01-11-2022 Resolved: 46-22-7034GjcanbugTawroaww codes; unclassified (2 sources)Gestation period, 26 weeks; Translations: [26 weeks gestation of ]64-28-3348GjtfoaxzWvijvcxrnlbw (9 sources)Onset: Results Test NameValueInterpretationReference RangeFacilityUrinalysis macro (dipstick) panel (U)on 12-10-8992Wxdrovyfu, UANegativeNegative - 4(70) +++ mg/dLNOMS HealthcareBlood, UANegativeNegative - 50 Hector/mcLNOMS HealthcareClarity, UAClear NOMS HealthcareColor, UAYellowNOMS HealthcareGlucose, UANegativeNegative - 1999(110) ++++ mg/dLNOMS HealthcareInterpretation and review of laboratory resultsNormalNOMS HealthcareKetones, UANegativeNegative - 160(16) ++++ mg/dLNOMS HealthcareLeukocytes, UANegativeNegative - 500+++ Josemanuel/mcLNOMS HealthcareNitrite, UANegativeNegative - PositiveNOMS HealthcarepH, UA6.05 - 9NOM[facility] Healthcare Protein, UANegativeNegative - 2000(20) ++++ mg/dLNOMS HealthcareSpec Grav, UA 1.0151 - 1.03NOMS HealthcareUrobilinogen, UA1.00.2 - 12 mg/dLNOMS HealthcareNOMS HealthcareUrinalysis macro (dipstick) panel (U)on 50-14-8375Vdwmtwtnj, UA NegativeNegative - 4(70) +++ mg/dLNOMS HealthcareBlood, UANegativeNegative - 50 Hector/mcLNOMS HealthcareClarity, UAClearNOMS HealthcareColor, UAYellowNOMS HealthcareGlucose, UANegativeNegative - 1999(110) ++++ mg/dLNOMS Healthcare Interpretation and review of laboratory resultsAbnormalNOMS HealthcareKetones, UANegativeNegative - 160(16) ++++ mg/dLNOMS HealthcareLeukocytes, UANegative Negative - 500+++ Josemanuel/mcLNOMS HealthcareNitrite, UANegativeNegative - Positive NOMS HealthcarepH, UA6.05 - 9NOMS HealthcareProtein, UANegativeNegative - 1999(20) ++++ mg/dLNOMS HealthcareSpec Grav, UA1.0151 - 1.03NOMS Healthcare Urobilinogen, UA0.20.2 - 12 mg/dLNOMS HealthcareNOID HealthcareUrinalysis macro (dipstick) panel (U)on 92-86-9027Zyoolvhuk, UANegativeNegative - 4(70) +++ mg/dL NOMS HealthcareBlood, UANegativeNegative - 50 Hector/mcLNOMS HealthcareClarity, UA ClearNOMS HealthcareColor, UAYellowNOMS HealthcareGlucose, UANegativeNegative - 1999(110) ++++ mg/dLNOMS HealthcareInterpretation and review of laboratory resultsNormalNOMS HealthcareKetones, UANegativeNegative - 160(16) ++++ mg/dLNOMS HealthcareLeukocytes, UANegativeNegative - 500+++ Josemanuel/mcLNOMS HealthcareNitrite, UANegativeNegative - PositiveNOMS HealthcarepH, UA65 - 9NOMS HealthcareProtein, UANegativeNegative - 1999(20) ++++ mg/dLNOMS HealthcareSpec Grav, UA1.0151 - 1.03NOMS HealthcareUrobilinogen, UA2.00.2 - 12 mg/dLNOMS HealthcareNOMS HealthcareUrinalysis macro (dipstick) panel (U)on 03-54-1289Zsjsnfeoy, UA NegativeNegative - 4(70) +++ mg/dLNOMS HealthcareBlood, UANegativeNegative - 50 Hector/mcLNOMS HealthcareClarity, UAClearNOMS HealthcareColor, UAYellowNOMS HealthcareGlucose, UANegativeNegative - 1999(110) ++++ mg/dLNOMS Healthcare Interpretation and review of laboratory resultsNormalNOMS HealthcareKetones, UA NegativeNegative - 160(16) ++++ mg/dLNOMS HealthcareLeukocytes, UANegative Negative - 500+++ Josemanuel/mcLNOMS HealthcareNitrite, UANegativeNegative - Positive NOMS HealthcarepH, UA65 - 9NOMS HealthcareProtein, UANegativeNegative - 2000(20) ++++ mg/dLNOMS HealthcareSpec Grav, UA1.0151 - 1.03NOMS HealthcareUrobilinogen, UA1.00.2 - 12 mg/dLNOMS HealthcareNOMS HealthcareUrinalysis macro (dipstick) panel (U)on 63-69-7628Ehlsfolgw, UANegativeNegative - 4(70) +++ mg/dLNOMS HealthcareBlood, UANegativeNegative - 50 Hector/mcLNOMS HealthcareClarity, UAClear NOMS HealthcareColor, UAYellowNOMS HealthcareGlucose, UANegativeNegative - 1999(110) ++++ mg/dLNOMS HealthcareInterpretation and review of laboratory resultsAbnormalNOMS HealthcareKetones, UANegativeNegative - 160(16) ++++ mg/dL NOMS HealthcareLeukocytes, UANegativeNegative - 500+++ Josemanuel/mcLNOMS Healthcare Nitrite, UANegativeNegative - PositiveNOMS HealthcarepH, UA65 - 9NOMS Healthcare Protein, UANegativeNegative - 1999(20) ++++ mg/dLNOMS HealthcareSpec Grav, UA 1.0151 - 1.03NOMS HealthcareUrobilinogen, UA1.00.2 - 12 mg/dLNOMS HealthcareNOMS HealthcareUrinalysis macro (dipstick) panel (U)on 74-47-6429Mglfmiqyb, UA NegativeNegative - 4(70) +++ mg/dLNOMS HealthcareBlood, UANegativeNegative - 50 Hector/mcLNOMS HealthcareClarity, UAClearNOMS HealthcareColor, UAYellowNOMS HealthcareGlucose, UANegativeNegative - 1999(110) ++++ mg/dLNOMS Healthcare Interpretation and review of laboratory resultsNormalNOMS HealthcareKetones, UA NegativeNegative - 160(16) ++++ mg/dLNOMS HealthcareLeukocytes, UANegative Negative - 500+++ Josemanuel/mcLNOMS HealthcareNitrite, UANegativeNegative - Positive NOMS HealthcarepH, UA65 - 9NOMS HealthcareProtein, UANegativeNegative - 1999(20) ++++ mg/dLNOMS HealthcareSpec Grav, UA1.0151 - 1.03NOMS HealthcareUrobilinogen, UA1.00.2 - 12 mg/dLNOMS HealthcareNOMS HealthcareUrinalysis macro (dipstick) panel (U)on 28-00-9253Sffqqbchd, UANegativeNegative - 4(70) +++ mg/dLNOMS HealthcareBlood, UANegativeNegative - 50 Hector/mcLNOMS HealthcareClarity, UAClear NOMS HealthcareColor, UAYellowNOMS HealthcareGlucose, UANegativeNegative - 1999(110) ++++ mg/dLNOMS HealthcareInterpretation and review of laboratory resultsAbnormalNOMS HealthcareKetones, UANegativeNegative - 160(16) ++++ mg/dL NOMS HealthcareLeukocytes, UAPositiveNegative - 500+++ Josemanuel/mcLNOMS Healthcare Nitrite, UANegativeNegative - PositiveNOMS HealthcarepH, UA6.55 - 9NOMS HealthcareProtein, UANegativeNegative - 1999(20) ++++ mg/dLNOMS HealthcareSpec Grav, UA1.0151 - 1.03NOMS HealthcareUrobilinogen, UA1.00.2 - 12 mg/dLNOMS HealthcareNOMS HealthcareUrinalysis macro (dipstick) panel (U)on 12-21-2024 Bilirubin, UANegativeNegative - 4(70) +++ mg/dLNOMS HealthcareBlood, UANegative Negative - 50 Hector/mcLNOMS HealthcareClarity, UACloudyNOMS HealthcareColor, UA YellowNOMS HealthcareGlucose, UANegativeNegative - 2000(110) ++++ mg/dLNOMS HealthcareInterpretation and review of laboratory resultsAbnormalNOMS Healthcare Ketones, UANegativeNegative - 160(16) ++++ mg/dLNOMS HealthcareLeukocytes, UA1+ Negative - 500+++ Josemanuel/mcLNOMS HealthcareComment on above:70Nitrite, UANegative Negative - PositiveNOMS HealthcarepH, UA6.55 - 9NOMS HealthcareProtein, UA NegativeNegative - 2000(20) ++++ mg/dLNOMS HealthcareSpec Grav, UA1.0151 - 1.03 NOMS HealthcareUrobilinogen, UA1.00.2 - 12 mg/dLNOMS HealthcareNOMS Healthcare TBH DRUG SCREEN RAPID (URINE)on 75-77-5748UYRIVGIPECB SCREEN URINENegative NEGATIVENOMS HealthcareBARBITURATES SCREEN URINENegativeNEGATIVENOMS Healthcare BENZODIAZEPINES SCREEN URINENegativeNEGATIVENOMS HealthcareBUPRENORPHINE SCREEN URINENegativeNEGATIVENOMS HealthcareComment on above:DRUG CLASS TEST SYSTEM CUT- OFF CONCENTRATIONS ARE FOLLOWS: AMP (Amphetamine): 500 ng/mL BAR (Barbiturates): 200 ng/mL BZO (Benzodiazepines): 150 ng/mL BUP (Buprenorphine): 10 ng/mL KELLIE (Cocaine): 150 ng/mL mAMP (Methamphetamine): 500 ng/mL MTD (Methadone): 200 ng/mL OPI (Opiates): 100 ng/mL OXY (Oxycodone): 100 ng/mL PCP (Phencyclidine): 25 ng/mL THC (Cannabinoids): 50 ng/mL TCA (Trycyclic Antidepressants): 300 ng/mL CANNABINOID SCREEN URINENegativeNEGATIVENOMS HealthcareCOCAINE SCREEN URINE NegativeNEGATIVENOMS HealthcareMETHADONE SCREEN URINENegativeNEGATIVENOMS HealthcareMETHAMPHETAMINES SCREEN URINENegativeNEGATIVENOMS HealthcareOPIATE SCREEN URINENegativeNEGATIVENOMS HealthcareOXYCODONE SCREEN URINENegative NEGATIVENOMS HealthcarePHENCYCLIDINE SCREEN URINENegativeNEGATIVENOMS Healthcare TRICYCLIC ANTIDEPRESSANT URINENegativeNEGATIVENOMS HealthcareCLINISYNCNOMS HealthcareUltrasound - Officeon 68-26-9852Vzmonbtmr Study observation (narrative)[facility] SystemRadiology Study observation (narrative) [facility] HospitalUltrasound - Officeon 75-61-5418QueGbsbehOhioHealth Pickerington [facility] Hospital Urinalysis macro (dipstick) panel (U)on 43-11-9030Xrensitcm, UANegativeNegative - 4(70) +++ mg/dLNOMS HealthcareBlood, UANegativeNegative - 50 Hector/mcLNOMS HealthcareClarity, UAClearNOMS HealthcareColor, UAYellowNOMS HealthcareGlucose, UANegativeNegative - 2000(110) ++++ mg/dLNOMS HealthcareInterpretation and review of laboratory resultsAbnormalNOMS HealthcareKetones, UANegativeNegative - 160(16) ++++ mg/dLNOMS HealthcareLeukocytes, UANegativeNegative - 500+++ Josemanuel/mcL NOMS HealthcareNitrite, UANegativeNegative - PositiveNOMS HealthcarepH, UA75 - 9 NOMS HealthcareProtein, UANegativeNegative - 2000(20) ++++ mg/dLNOMS Healthcare Spec Grav, UA1.011 - 1.03NOMS HealthcareUrobilinogen, UA0.20.2 - 12 mg/dLNOMS HealthcareNOMS HealthcareRECURRENT VAGINITIS (HTRX)on 67-85-9645XAPLLAXBP WSKYWZN44.619AbnormalNOID HealthcareATOPOBIUM VAGINAEDetectedAbnormalNOID HealthcareBVAB 2,3 (BACTERIAL VAGINOSIS ASSOCIATED BACTERIA 2, 3); MOBILUNCUS SPP24.427AbnormalNOID HealthcareBVAB 2,3 (BACTERIAL VAGINOSIS ASSOCIATED BACTERIA 2, 3); MOBILUNCUS SPPDetectedAbnormalNOID HealthcareCANDIDA ALBICANS, PARAPSILOSIS, TSPIWYXHMI1ECJV HealthcareCANDIDA ALBICANS, PARAPSILOSIS, TROPICALISNot detectedNOMS HealthcareCANDIDA VAWQQJRS5MRTR HealthcareCANDIDA GLABRATANot detectedNOMS HealthcareCANDIDA LCCJEI3NKVT HealthcareCANDIDA KRUSEI Not detectedNOMS HealthcareCHLAMYDIA LKTCHHPLEBV2ETTS HealthcareCHLAMYDIA TRACHOMATISNot detectedNOMS HealthcareERMB, C; MEFA19.826AbnormalNOMS Healthcare ERMB, C; MEFADetectedAbnormalNOMS HealthcareGARDNERELLA DATIKXRWF45.747Abnormal NOMS HealthcareGARDNERELLA VAGINALISDetectedAbnormalNOMS Healthcare Interpretation and review of laboratory resultsAbnormalNOMS Healthcare MEGASPHAERA (TYPES 1, 2)0NOMS HealthcareMEGASPHAERA (TYPES 1, 2)Not detectedNOMS HealthcareMYCOPLASMA FYNTZZJJXH4JMSC HealthcareMYCOPLASMA GENITALIUMNot detected NOMS HealthcareNEISSERIA OACJUTEMFCM5ZVLE HealthcareNEISSERIA GONORRHOEAENot detectedNOMS HealthcareTET B, TET M17.847AbnormalNOMS HealthcareTET B, TET M DetectedAbnormalNOMS HealthcareTRICHOMONAS LOKFTTQPR7HVFQ HealthcareTRICHOMONAS VAGINALISNot detectedNOMS HealthcareNOMS HealthcareUS OB 14+ WEEKS ANATOMY SCAN on 19-07-2186XH OB 14+ WEEKS ANATOMY SCANFINDINGS: A single, live intrauterine is present with normal cardiac rate of 145 beats per minute. Normal activity and amniotic fluid volume. Amniotic fluid index is cm. Morphology is grossly normal with the exception of possible fusion of the left tarsal, metatarsal bones. The placentais posterior, inferior aspect, 4 cm from the [...] possible fusion TRANSCRIBED BY: ELECTRONICALLY SIGNED BY: Jason Israel AvailableComment on above:Order Comment: US OB ANATOMY SINGLE W US OB CERVICAL LENGTH Estimated Date of Delivery: 03/21/25 Gestational Age as of 10/18/2024: 16b6kFtatfbnoqf macro (dipstick) panel (U)on 11-53-1579Przodjqae, UANegativeNegative - 4(70) +++ mg/dLNOMS HealthcareBlood, UANegativeNegative - 50 Hector/mcLNOMS HealthcareClarity, UAClearNOMS Healthcare Color, UAYellowNOMS HealthcareGlucose, UANegativeNegative - 2000(110) ++++ mg/dL NOMS HealthcareInterpretation and review of laboratory resultsAbnormalNOMS HealthcareKetones, UANegativeNegative - 160(16) ++++ mg/dLNOMS Healthcare Leukocytes, UANegativeNegative - 500+++ Josemanuel/mcLNOMS HealthcareNitrite, UA NegativeNegative - PositiveNOMS HealthcarepH, UA6.55 - 9NOMS HealthcareProtein, UANegativeNegative - 1999(20) ++++ mg/dLNOMS HealthcareSpec Grav, UA1.0251 - 1.03NOMS HealthcareUrobilinogen, UA1.00.2 - 12 mg/dLNOMS HealthcareNOMS HealthcareNo Panel Informationon 62-68-3132PqoReeryaOhioHealth Pickerington Methodist HospitalRubella IGG immune statuson 25-98-8278Emkyliz immune IgGimmuneMercy Health West Hospital SystemT. pallidum IgG+IgM IA Ql (S)on 73-55-0678DxomhrpoLda-ReactiveMercy Health West Hospital SystemUrinalysis macro (dipstick) panel (U)on 73-01-7393Swoxynizf, UANegative Negative - 4(70) +++ mg/dLNOMS HealthcareBlood, UANegativeNegative - 50 Hector/mcL NOMS HealthcareClarity, UAClearNOMS HealthcareColor, UAYellowNOMS Healthcare Glucose, UANegativeNegative - 2000(110) ++++ mg/dLNOMS HealthcareInterpretation and review of laboratory resultsNormalNOMS HealthcareKetones, UANegativeNegative - 160(16) ++++ mg/dLNOMS HealthcareLeukocytes, UATraceNegative - 500+++ Josemanuel/mcL NOMS HealthcareNitrite, UANegativeNegative - PositiveNOMS HealthcarepH, UA75 - 9 NOMS HealthcareProtein, UANegativeNegative - 2000(20) ++++ mg/dLNOMS Healthcare Spec Grav, UA1.0251 - 1.03NOMS HealthcareUrobilinogen, UA1.00.2 - 12 mg/dLNOMS HealthcareNOMS HealthcareHCG ( test) Ql (U)on 90-27-8321Kfzpbjabobhmuy and review of laboratory resultsAbnormalCapital Region Medical CenterPreg Test, UrPositive NegativeNOKindred Hospital HealthcareUS OB TRANSVAGINALon 42-05-2632HW OB TRANSVAGINALEXAM: US OB TRANSVAGINAL HISTORY: Dating. COMPARISON: None [...] the left ovary was not visualized. Electronically Signed:Electronically signed by HEMAL HANSEN II, MD, PHD at 20-Aug-2024 08:40:09 AM [facility]adiologyNormalNot AvailableComment on above:Order Comment: US OB TRANSVAGINAL No LMP recorded.Ultrasound - Officeon 81-40-9266FjqEzfmrk Health System Urinalysis macro (dipstick) panel (U)on 84-45-4805Cqddjcfpf, UANegativeNegative - 4(70) +++ mg/dLNOMS HealthcareBlood, UANegativeNegative - 50 Hector/mcLNOMS HealthcareClarity, UAClearNOMS HealthcareColor, UAYellowNOMS HealthcareGlucose, UANegativeNegative - 2000(110) ++++ mg/dLNOMS HealthcareInterpretation and review of laboratory resultsAbnormalNOMS HealthcareKetones, UAPositiveNegative - 160(16) ++++ mg/dLNOMS HealthcareComment on above:TraceLeukocytes, UATrace Negative - 500+++ Josemanuel/mcLNOID HealthcareNitrite, UANegativeNegative - Positive NOMS HealthcarepH, UA6.55 - 9NOMS HealthcareProtein, UAPositiveNegative - 2000(20) ++++ mg/dLNOMS HealthcareComment on above:30mg/dLSpec Grav, UA1.0251 - 1.03NOMS HealthcareUrobilinogen, UA0.20.2 - 12 mg/dLNOMS HealthcareNOID HealthcareTBH PREG QUANT HCGon 32-67-0443NRQ POCODAUAOWGD6014dJR/mLNOMS HealthcareComment on above:5-50 0.2-1 WEEK 50-500 1-2 WEEKS 100-5,000 2-3 WEEKS 500-10,000 3-4 WEEKS 1,000-50,000 4-5 WEEKS 10,000-100,000 5-6 WEEKS 15,000-200,000 6-8 WEEKS 10,000-100,000 2-3 [facility] HealthcareHCG ( test) Ql (U)on 34-53-4773Asbjaaevgriygp and review of laboratory resultsAbnormalNOMS HealthcarePreg Test, UrPositive NegativeNOKindred Hospital HealthcareTBH PREG QUANT HCGon 19-07-3811KQM DBYSUBYWLSFZ4275rTL/mLNOMS HealthcareComment on above:5-50 0.2-1 WEEK 50-500 1-2 WEEKS 100-5,000 2-3 WEEKS 500-10,000 3-4 WEEKS 1,000-50,000 4-5 WEEKS 10,000-100,000 5-6 WEEKS 15,000-200,000 6-8 WEEKS 10,000-100,000 2-3 MONTHS CLINISYNCNOMS HealthcareALL CBC WITH AUTO DIFFon 20-28-5929AAHJHCEKY ABSOLUTE AUTO0.1NOMS HealthcareBasophils/100 WBC (Bld)0.5 %0.2 - 2.0 %[facility] Eosinophils/100 WBC (Bld)1 %0.9 - 7.0 %NOMS HealthcareErythrocyte distribution width (RBC) [Ratio]13.5 %11.0 - 15.0 %[facility] HealthcareHematocrit (Bld) [Volume fraction]31.9 %Low36.0 - 48.0 %[facility] HealthcareHemoglobin (Bld) [Mass/Vol]10.5 g/dLLow12.0 - 16.0 g/dLCapital Region Medical CenterIMMATURE GRANULOCYTES ABS AUTO0.13HighNOID HealthcareImmature granulocytes/100 WBC (Bld)1.2 %High0.0 - 0.5 %[facility] HealthcareInterpretation and review of laboratory resultsAbnormalCapital Region Medical Center LYMPHOCYTES ABSOLUTE AUTO3.8NOMS [facility] HospitalLymphocytes/100 WBC (Bld)34.5 %20.5 - 60.0 %[facility] CenterH (RBC) [Entitic mass]29.7 pg26.7 - 34.0 pgMissouri Rehabilitation CenterHC (RBC) [Mass/Vol]32.9 g/dL29.9 - 35.2 g/dLMissouri Rehabilitation CenterV (RBC) [Entitic vol]90.4 fL81.0 - 99.0 fLCapital Region Medical CenterMONOCYTES ABSOLUTE AUTO0.6NOMS HealthcareMonocytes/100 WBC (Bld)5.5 %1.7 - 12.0 %[facility] CenterNEUTROPHILS ABSOLUTE AUTO6.3NOMS HealthcareNeutrophils/100 WBC (Bld)57.3 %43.0 - 75.0 %[facility] Medical CenterPlatelet mean volume (Bld) [Entitic vol]11.2 fL9.5 - 13.5 fLCapital Region Medical CenterTB EO #0.1NOMS [facility] TJP658CLVPLee's Summit Hospital RBC3.53LowNOLee's Summit Hospital AGL52EYZKSaint Francis Hospital & Health ServicesCLINISYNCNMissouri Baptist Hospital-Sullivan CBC WITH PLATELET NO DIFFERENTIALon 86-16-1332Gufimryxvhf distribution width (RBC) [Ratio]13.2 % 11.0 - 15.0 %[facility] CenterHematocrit (Bld) [Volume fraction]33.7 %Low36.0 - 48.0 %[facility] CenterHemoglobin (Bld) [Mass/Vol]11.2 g/dLLow12.0 - 16.0 g/dLKANE COUNTY HUMAN RESOURCE SSD HealthcareInterpretation and review of laboratory resultsAbnormalMissouri Rehabilitation CenterH (RBC) [Entitic mass]29.6 pg26.7 - 34.0 pgMissouri Rehabilitation CenterHC (RBC) [Mass/Vol]33.2 g/dL29.9 - 35.2 g/dLMissouri Rehabilitation CenterV (RBC) [Entitic vol]89.2 fL 81.0 - 99.0 fLCapital Region Medical CenterPlatelet mean volume (Bld) [Entitic vol]11.7 fL9.5 - 13.5 fLCapital Region Medical CenterTBH QXE321ARHLSaint Francis Hospital & Health ServicesTBH RBC3.78LowCapital Region Medical Center TB WBC10.6[facility] CenterCLINISYNCNMANGUM REGION[facility]ANGUM HealthcareUrinalysis macro (dipstick) panel (U)on 22-14-1671Mkczvorfu, UANegativeNegative - 4(70) +++ mg/dLNOMS HealthcareBlood, UANegativeNegative - 50 Hector/mcLNOMS HealthcareClarity, UAClear NOMS HealthcareColor, UAYellowNOID HealthcareGlucose, UANegativeNegative - 1999(110) ++++ mg/dLKANE COUNTY HUMAN RESOURCE SSD HealthcareInterpretation and review of laboratory resultsAbnormalKANE COUNTY [facility] SSD HealthcareKetones, UANegativeNegative - 160(16) ++++ mg/dL [facility] HealthcareLeukocytes, UAModerateNegative - 500+++ Josemanuel/mcLNOID Healthcare Nitrite, UANegativeNegative - PositiveNOID HealthcarepH, UA75 - 9NOID Healthcare Protein, UANegativeNegative - 2000(20) ++++ mg/dLKANE COUNTY HUM[facility] RESOURCE SSD HealthcareSpec Grav, UA 1.0151 - 1.03NOID HealthcareUrobilinogen, UA0.20.2 - 12 mg/dLBarton County Memorial Hospital HealthcareUrinalysis macro (dipstick) panel (U)on 17-31-2197Etoxlfoyt, UA NegativeNegative - 4(70) +++ mg/dLNOMS HealthcareBlood, UANegativeNegative - 50 Hector/mcLNOMS HealthcareClarity, UAClearNOMS HealthcareColor, UAYellowNOMS HealthcareGlucose, UANegativeNegative - 1999(110) ++++ mg/dLK[facility] Healthcare Interpretation and review of laboratory resultsAbnormalK[facility] COUNTY [facility] HealthcareKetones, UANegativeNegative - 160(16) ++++ mg/dLCapital Region Medical CenterLeukocytes, UAPositive Negative - 500+++ Josemanuel/mcLNOID HealthcareComment on above:smallNitrite, UA NegativeNegative - PositiveNOID HealthcarepH, UA75 - 9NOID HealthcareProtein, UA NegativeNegative - 2000(20) ++++ mg/dLKANE COUNTY HUM[facility]OURCE SSD HealthcareSpec Grav, UA1.021 - 1.03 NOMSaint Luke'S HospitalUrobilinogen, UA0.20.2 - 12 mg/dLNOKindred Hospital Healthcare TBH TOTAL PROTEIN 24 HOUR URINEon 62-95-5559Jfkthcdkvyuhbq and review of laboratory resultsAbnoSelect Specialty Hospital - Laurel HighlandsProtein (U) [Mass/Vol]10.7 mg/dLNINF - 11.9 mg/dLCapital Region Medical CenterTBH TOTAL PROTEIN 24 HOUR EETNH435.9HighNINFCapital Region Medical CenterTOTAL VOLUME 24 HOUR RHPPA2043eV/24hrCapital Region Medical CenterCLINISYNCNSSM Health CareALL CBC WITH AUTO DIFFon 09-85-6499WBXBIRZEP ABSOLUTE AYAB4JLXRSaint Francis Hospital & Health ServicesBasophils/100 WBC (Bld)0.3 %0.2 - 2.0 %NOMSaint Luke'S HospitalEosinophils/100 WBC (Bld)0.6 %Low0.9 - 7.0 %[facility] CenterErythrocyte distribution width (RBC) [Ratio]12.3 %11.0 - 15.0 %[facility] CenterHematocrit (Bld) [Volume fraction]34.8 %Low36.0 - 48.0 %[facility] CenterHemoglobin (Bld) [Mass/Vol]11.7 g/dLLow12.0 - 16.0 g/dLCapital Region Medical CenterIMMATURE GRANULOCYTES ABS AUTO0.15HighCapital Region Medical Center Immature granulocytes/100 WBC (Bld)1.2 %High0.0 - 0.5 %[facility] Interpretation and review of laboratory resultsAbMyMichigan Medical Center Alma LYMPHOCYTES ABSOLUTE AUTO2.6NOSaint Francis Hospital & Health ServicesLymphocytes/100 WBC (Bld)20.8 %20.5 - 60.0 %[facility] CenterMCH (RBC) [Entitic mass]30 pg26.7 - 34.0 pgNOSaint Francis Hospital & Health Services MCHC (RBC) [Mass/Vol]33.6 g/dL29.9 - 35.2 g/dLNOMS HealthcareMCV (RBC) [Entitic vol]89.2 fL81.0 - 99.0 fLNOMS HealthcareMONOCYTES ABSOLUTE AUTO0.5NOMS HealthcareMonocytes/100 WBC (Bld)4.3 %1.7 - 12.0 %NOMS HealthcareNEUTROPHILS ABSOLUTE BGPN3XtrfWARB HealthcareNeutrophils/100 WBC (Bld)72.8 %43.0 - 75.0 % NOMS HealthcarePlatelet mean volume (Bld) [Entitic vol]10.8 fL9.5 - 13.5 fLNOMS HealthcareTBH EO #0.1NOMS HealthcareTBH [id number] HealthcareTBH RBC3.9LowNOMS HealthcareTBH WBC12.3HighNOMS HealthcareCLINISYNCNOMS HealthcareUrinalysis macro (dipstick) panel (U)on 09-67-7007Nnvdnsoxc, UANegativeNegative - 4(70) +++ mg/dL NOMS HealthcareBlood, UANegativeNegative - 50 Hector/mcLNOMS HealthcareClarity, UA ClearNOMS HealthcareColor, UAYellowNOMS HealthcareGlucose, UANegativeNegative - 1999(110) ++++ mg/dLNOMS HealthcareInterpretation and review of laboratory resultsNormalNOMS HealthcareKetones, UANegativeNegative - 160(16) ++++ mg/dLNOMS HealthcareLeukocytes, UANegativeNegative - 500+++ Josemanuel/mcLNOMS HealthcareNitrite, UANegativeNegative - PositiveNOMS HealthcarepH, UA6.55 - 9NOMS Healthcare Protein, UANegativeNegative - 2000(20) ++++ mg/dLNOMS HealthcareSpec Grav, UA 1.021 - 1.03NOMS HealthcareUrobilinogen, UA0.20.2 - 12 mg/dLNOMS HealthcareNOMS HealthcareUrinalysis macro (dipstick) panel (U)on 31-75-9920Qhzljqpdy, UA NegativeNegative - 4(70) +++ mg/dLNOMS HealthcareBlood, UANegativeNegative - 50 Hector/mcLNOMS HealthcareClarity, UAClearNOMS HealthcareColor, UAYellowNOMS HealthcareGlucose, UANegativeNegative - 1999(110) ++++ mg/dLNOMS Healthcare Interpretation and review of laboratory resultsAbnormalNOMS HealthcareKetones, UANegativeNegative - 160(16) ++++ mg/dLNOMS HealthcareLeukocytes, UATrace Negative - 500+++ Josemanuel/mcLNOMS HealthcareNitrite, UANegativeNegative - Positive NOMS HealthcarepH, UA7.55 - 9NOMS HealthcareProtein, UANegativeNegative - 2000(20) ++++ mg/dLNOMS HealthcareSpec Grav, UA1.0151 - 1.03NOMS Healthcare Urobilinogen, UA0.20.2 - 12 mg/dLNOMS HealthcareNOMS HealthcareUrinalysis macro (dipstick) panel (U)on 06-46-1747Jwawaazif, UANegativeNegative - 4(70) +++ mg/dL NOMS HealthcareBlood, UANegativeNegative - 50 Hector/mcLNOMS HealthcareClarity, UA ClearNOMS HealthcareColor, UAYellowNOMS HealthcareGlucose, UANegativeNegative - 1999(110) ++++ mg/dLNOMS HealthcareInterpretation and review of laboratory resultsNormalNOMS HealthcareKetones, UANegativeNegative - 160(16) ++++ mg/dLNOMS HealthcareLeukocytes, UANegativeNegative - 500+++ Josemanuel/mcLNOMS HealthcareNitrite, UANegativeNegative - PositiveNOMS HealthcarepH, UA5.55 - 9NOMS Healthcare Protein, UANegativeNegative - 1999(20) ++++ mg/dLNOMS HealthcareSpec Grav, UA 1.0301 - 1.03NOMS HealthcareUrobilinogen, UA0.20.2 - 12 mg/dLNOMS HealthcareNOMS HealthcareUltrasound - OfficeOrdered By: Martha Perdomo on 17-96-1632Tzknnexru Study observation (narrative)[facility] SystemUltrasound - Officeon 30-65-8762Zsjuxwroq Study observation (narrative)[facility] Urinalysis macro (dipstick) panel (U)on 94-04-4538Fbqsaccqv, UANegativeNegative - 4(70) +++ mg/dLNOMS HealthcareBlood, UANegativeNegative - 50 Hector/mcLNOMS HealthcareClarity, UAClearNOMS HealthcareColor, UAYellowNOMS HealthcareGlucose, UANegativeNegative - 2000(110) ++++ mg/dLNOID HealthcareInterpretation and review of laboratory resultsNormalNOID HealthcareKetones, UANegativeNegative - 160(16) ++++ mg/dLNOID HealthcareLeukocytes, UANegativeNegative - 500+++ Josemanuel/mcL NOMS HealthcareNitrite, UANegativeNegative - PositiveNOMS HealthcarepH, UA7.05 - 9NOMS HealthcareProtein, UANegativeNegative - 2000(20) ++++ mg/dLNOID Healthcare Spec Grav, UA1.0251 - 1.03NOID HealthcareUrobilinogen, UA0.20.2 - 12 mg/dLNOID HealthcareNOMS HealthcareUltrasound - Officeon 07-73-5937QvgJyk[address] [place] [address] ALL CBC WITH AUTO DIFFon 44-52-7655IYJBOZORL ABSOLUTE AUTO0.0NOMS Healthcare Basophils/100 WBC (Bld)0.3 %0.2 - 2.0 %NOMS HealthcareEosinophils/100 WBC (Bld) 0.4 %Low0.9 - 7.0 %NOMS HealthcareErythrocyte distribution width (RBC) [Ratio] 12.3 %11.0 - 15.0 %NOMS HealthcareHematocrit (Bld) [Volume fraction]36.2 %36.0 - 48.0 %NOMS HealthcareHemoglobin (Bld) [Mass/Vol]12.6 g/dL12.0 - 16.0 g/dLNOID HealthcareIMMATURE GRANULOCYTES ABS AUTO0.06HighNOID HealthcareImmature granulocytes/100 WBC (Bld)0.5 %0.0 - 0.5 %NOMS HealthcareInterpretation and review of laboratory resultsAbnormalNOID HealthcareLYMPHOCYTES ABSOLUTE AUTO2.1 NOMS HealthcareLymphocytes/100 WBC (Bld)18.0 %Low20.5 - 60.0 %NOMS HealthcareMCH (RBC) [Entitic mass]32.6 pg26.7 - 34.0 pgNOSaint Francis Hospital & Health ServicesMCHC (RBC) [Mass/Vol] 34.8 g/dL29.9 - 35.2 g/dLCapital Region Medical CenterMCV (RBC) [Entitic vol]93.8 fL81.0 - 99.0 fLCapital Region Medical CenterMONOCYTES ABSOLUTE AUTO0.5NOID HealthcareMonocytes/100 WBC (Bld)3.9 %1.7 - 12.0 %[facility] CenterNEUTROPHILS ABSOLUTE AUTO9.1HighNOID HealthcareNeutrophils/100 WBC (Bld)76.9 %High43.0 - 75.0 %[facility] Platelet mean volume (Bld) [Entitic vol]10.4 fL9.5 - 13.5 fLCapital Region Medical CenterTB EO #0.1NOMS [facility] HospitalTB [id number] Francis Hospital & Health ServicesTB RBC3.86LowChildren's Mercy Northland WBC11.9HighCapital Region Medical CenterCLINISYNCNMANGUM REGIONAL [facility] HealthcareUnlisted Lab Teston 12-31-2023 [facility] HospitalUnlisted Lab Teston 18-15-4496PvvSfotgeGalion HospitalHIV 1&2 AB/AG Screen (P24 AG)on 12-72-2845UWJ 1&2 AB/AGNon-ReactiveOhioHealth Pickerington Methodist HospitalHemoglobin A1con 13-03-9308SrG4i (Bld) [Mass fraction]4.8 %4.0 - 6.0 % [facility] HospitalHepatitis B surface antigenon 34-72-6645Belcdjwpl B Surface AntigenNegativeOhioHealth Pickerington Methodist HospitalHepatitis C(HCV) Ab w/ Reflex to PCRon 75-26-1577CRE Ab Ql (S)Non-ReactiveOhioHealth Pickerington Methodist HospitalNo Panel Informationon 15-09-4294IrfAdqhacGalion HospitalRubella IGG immune statuson 77-85-2069Mdbewbf immune IgG9.36 IU/mLFormerly [facility]oots Memorial Hospitalyphilis Total(Unknown Syphilis Status)on 67-64-8174IxmcgcedEtd-ReactiveOhioHealth Pickering[facility] Methodist HospitalType and screenon 27-99-8891Ydy/Rh(D)NegativeOhioHealth Pickerington Methodist HospitalDrug Screen, UrineOrdered By: Martha Perdomo on 55-41-9231Yfnhpywfrtj/Methamphetamine NegativeMercy Health West Hospital SystemBarbiturate Screen UrineNegativeMercy Health West Hospital SystemBenzodiazepine Screen, UrineNegativeProMedica Health SystemCocaine MetaboliteNegativeProMedica Doctors Hospital SystemMethadone,MeconiumNegativeProMedica Health SystemOpiate Quantitative UrineNegativeProMediKindred Hospital Lima SystemOxycodone NegativeProMediKindred Hospital Lima SystemPhencyclidineNegativeProMedica Doctors Hospital SystemThc Marijuana, UrineNegativeProMedica Health SystemProMedica Health SystemUltrasound - OfficeOrdered By: Martha Leanne on 65-36-0339BizIapaqb Health SystemUnlisted Lab Teston 50-00-4654TtiUxfilm Health SystemQuick Strepon 01-11-2022. pyogenes Org specific cx Ql (Throat)NegativeCodeGuard Other Quick StrepCodeGuard Other 289-9395BPSJ-MmM-2 (COVID-19) RNA NIK+probe Ql (Resp)on 83-68-6080PNDO-CoV-2 (COVID-19) RNA NIK+probe Ql (Unsp spec)NegativeCodeGuard Other ACETAMINOPHENon 12-72-3255Weecflpzwrumu [Mass/Vol] <10.0Critically low10.1-30.0The [facility] CampusComment on above:Performed By: #### SALYC, ACET, ETH #### [facility] [address] [place] [address] Scottie KarenCBC AUTO DIFFon 23-55-0373Zzfdyumke (Bld) [#/Vol]0.1 103/ulNormal 0.0-0.1The [facility] CampusComment on above:Performed By: #### CBC #### [facility] [address] [place], [place] [id number] Scottie KarenBasophils/100 WBC (Bld)0.4 %Normal0.2-2.0The [facility] Comment on above:Performed By: #### CBC #### [facility] [address] [place] [address] Scottie KarenEosinophils (Bld) [#/Vol]0.1 103/ulNormal0.0-0.7The [facility] CampusComment on above:Performed By: #### CBC #### [facility] [address] [place], [place] [address] Scottie KarenEosinophils/100 WBC (Bld)0.4 %Critically low0.9-7.0The [facility] on above:Performed By: #### CBC #### [facility] [address] [place] [address] Scottie KarenErythrocyte distribution width (RBC) [Ratio]11.8 %Wfhnqa31.0-15.0The [facility] CampusComment on above:Performed By: #### CBC #### [facility] [address] [place] [address] Scottie KarenHematocrit (Bld) [Volume fraction]40.8 %Ueketw85.0-48.0The [facility] on above:Performed By: #### CBC #### [facility] [address] [place] [address] Scottie KarenHemoglobin (Bld) [Mass/Vol]14.2 g/gNZaepno62.0-16.0The [facility] on above:Performed By: #### CBC #### [facility] [address] [place] [address] Scottie KarenIG #0.03 10e3/ulNormal0.00-0.03The [facility] on above:Performed By: #### CBC #### [facility] [address] [place] [address] Scottie KarenIG %0.2 %Normal0.0-0.5The [facility] on above: Performed By: #### CBC #### [facility] [address] [place] [address] Scottie KarenLymphocytes (Bld) [#/Vol]2.4 103/ulNormal1.2-3.8The [facility] on above:Performed By: #### CBC #### [facility] [address] [place] [address] Scottie KarenLymphocytes/100 WBC (Bld)17.2 %Critically low20.5-60.0The [facility]lochen HospitalComment on above:Performed By: #### CBC #### [facility] [address] [id number] Scottie KarenMANUAL DIFF REQNONormalThe St. [facility] CampusComment on above: Performed By: #### CBC #### [facility] [address] [address] Scottie KarenMCH (RBC) [Entitic mass]31.2 mkNfhofs53.7-34.0[facility] Comment on above:Performed By: #### CBC #### [facility] [address] [place] [address] Scottie KarenMCHC (RBC) [Mass/Vol]34.8 g/bZOnmfqe08.9-35.2[facility] Comment on above:Performed By: #### CBC #### [facility] [address] [place] [address] Scottie KarenMCV (RBC) [Entitic vol]89.[address]lirml25.1-95.6The [facility] Comment on above:Performed By: #### CBC #### [facility] [address] [place], [place] [address] Scottie KarenMonocytes (Bld) [#/Vol]0.6 103/ulNormal0.3-0.8ThMarion Hospital Comment on above:Performed By: #### CBC #### [facility] [address] [place] [address] Scottie KarenMonocytes/100 WBC (Bld)4.5 %Normal1.7-12.0[facility] Comment on above:Performed By: #### CBC #### [facility] [address] [place], [place] [address] Scottie KarenNeutrophils (Bld) [#/Vol]10.9 103/ulCritically high1.4-6.5ThMarion HospitalComment on above:Performed By: #### CBC #### [facility] [address] [place], [place] [address] Scottie KarenNeutrophils/100 WBC (Bld)77.3 %Critically high43.0-75.0The [facility] CampusComment on above:Performed By: #### CBC #### [facility] [address] [place] [address] Scottie KarenPlatelet mean volume (Bld) [Entitic vol]10.7 fLNormal9.5-13.5The [facility] CampusComment on above:Performed By: #### CBC #### [facility] [address] [place] [address] Scottie KarenPlatelets (Bld) [#/Vol]348 103/jeIwdoos240-950Gqb [facility] Comment on above:Performed By: #### CBC #### [facility] [address] [place] [address] Scottie KarenRBC (Bld) [#/Vol]4.55 106/ulNormal3.40-5.30The [facility] Comment on above:Performed By: #### CBC #### [facility] [address] [place] [address] Scottie KarenWBC (Bld) [#/Vol]14.1 103/ulCritically high4.0-11.0The [facility] CampusComment on above:Performed By: #### CBC #### [facility] [address] [place] [address] Scottie KarenDRUG SCREEN RAPID (URINE)on 13-16-0298SWDSdqrymuyIyfwtiEEACQGHZXjg Bellevue HospitalComment on above:Performed By: #### TRACY SORIA DRUGRPJackson #### [facility] [address] [place] [address] Scottie KarenBARNegativeNormalNEGATIVEWhite HospitalComment on above: Performed By: #### TRACY SORIA DRUGRPD #### [facility] [address] [place] [address] Scottie KarenBUPNegativeNormalNEGATIVEWhite HospitalComment on above: Performed By: #### TRACY SORIA DRUGRPD #### [facility] [address] [place], [place] [address] Scottie KarenBZONegativeNormalNEGATIVEWhite HospitalComment on above: Performed By: #### TRACY SORIA DRUGRPJackson #### [facility] [address] [place] [address] Scottie KarenCOCNegativeNormalNEGATIVEWhite HospitalComment on above: Performed By: #### TRACY SORIA DRUGRPD #### [facility] [address] [place] [address] Scottie KarenCUT-OFFSSEE BELOWNoCincinnati Children's Hospital Medical CenterComment on above:Result Comment: AMP (Amphetamine): 500ng/mL, BAR (Barbituates): 200 ng/mL, BZO (Benzodiazepines): 150 ng/mL, BUP (Buprenorphine): 10 ng/mL, KELLIE (Cocaine): 150 ng/mL, mAMP (Methamphetamine): 500 ng/mL, MTD (Methadone): 200 ng/mL, OPI (Opiates): 100 ng/mL or 2000 ng/mL, OXY (Oxycodone): 100 ng/mL, PCP (Phencyclidine): 25 ng/mL, PPX (Propoxyphene): 300 ng/mL, THC (Cannabinoids): 50 ng/mL, TCA (Trycyclic Antidepressants): 300 ng/mLPerformed By: #### TRACY SORIA DRUGRPD #### [facility] [address] [place] [address] Scottie KarenDRUG CUT HEADERDRUG CLASS TEST SYSTEM CUT-OFF CONCENTRATIONS ARE FOLLOWS:NormalThe St. [facility] CampusComment on above:Performed By: #### TRACY SORIA DRUGRPD #### [facility] [address] [place] [address] Scottie KarenmAMPNegativeNormalNEGATIVEWhite HospitalComment on above: Performed By: #### TRACY SORIA DRUGRPD #### [facility] [address] [place] [address] Scottie KarenMTDNegativeNormalNEGATIVEWhite HospitalComment on above: Performed By: #### TRACY SORIA DRUGRPD #### [facility] [address] [address] Scottie KarenOPINegativeNormalNEGATIVEWhite HospitalComment on above: Performed By: #### TRACY SORIA, DRUGRPD #### [facility] [address] [place] [address] Scottie KarenOXYNegativeNormalNEGATIVEWhite HospitalComment on above: Performed By: #### TRACY SORIA DRUGRPD #### [facility] [address] [place] [address] Scottie KarenPCPNegativeNormalNEGATIVEWhite HospitalComhelen newberry [facility] hospital on above: Performed By: #### TRACY SORIA DRUGRPD #### [facility] [address] [place] [address] Scottie KarenPPXNegativeNormalNEGATIVEWhite HospitalComment on above: Performed By: #### TRACY SORIA DRUGRPD #### [facility] [address] [place] [address] Scottie KarenTCANegativeNormalNEGATIVEWhite HospitalComhelen newberry joy hospital on above: Performed By: #### TRACY SORIA DRUGRPD #### [facility] [address] [place] [address] Scottie KarenTHCNegativeNormalNEGATIVEWhite HospitalComhelen newberry joy hospital on above: Performed By: #### TRACY SORIA DRUGRPD #### [facility] [address] [place] [address] Scottie KarenER URINE PROFILEon 32-85-1465Zdrlzbcga [Mass/Vol]NegativeNormal NEGATIVEWhite HospitalComment on above:Performed By: #### TRACY SORIA DRUGRPD #### [facility] [address] [place] [address] Scottie KarenBLOODLARGENormalNEGATIVEWhite HospitalComment on above: Performed By: #### TRACY SOIRA DRUGRPD #### [facility] [address] [address] Scottie KarenClarity (U)CLEARNormalThDelaware County Hospital HospitalComment on above: Performed By: #### TRACY SORIA DRUGRPD #### [facility] [address] [place] [address] Scottie KarenColor (U)LT. YELLOWNormalYELLOWThe St. [facility] CampusComment on above:Performed By: #### TRACY SORIA DRUGRPD #### [facility] [address] [place] [address] Scottie KarenERUAHDA micrscopic examination will be performed if indicated.Normal The [facility] CampusComment on above:Performed By: #### TRACY SORIA DRUGRPD #### [facility] [address] [place] [address] Scottie KarenGlucose [Mass/Vol]NegativeNormalNEGATIVEWhite HospitalComment on above:Performed By: #### TRACY SORIA DRUGJAQUI #### [facility] [address] [place] [address] Scottie KarenKetones Ql (U)15 mg/dlNormalNEGATIVEWhite HospitalComment on above:Performed By: #### TRACY SORIA DRUGJAQUI #### [facility] [address] [place] [address] Scottie KarenNitrite Ql (U)NegativeNormalNEGATIVEWhite HospitalComment on above:Performed By: #### TRACY SORIA DRUGJAQUI #### [facility] [address] [place] [address] Scottie KarenpH (Bld)7.3Siosbx5-1Shd [facility] CampusComment on above:Performed By: #### TRACY SORIA DRUGJAQUI #### [facility] [address] [place] [address] Scottie KarenProtein (U) [Mass/Vol]NegativeNormalThDelaware County Hospital HospitalComment on above:Performed By: #### TRACY SORIA DRUGRPD #### [facility] [address] [place] [address] Scottie KarenSPEC GRAVITY1.891Qpbrln8.005-<=1.025The St[facility] CampusComment on above:Performed By: #### TRACY SORIA DRUGRPD #### [facility] [address] [place] [address] Scottie KarenUR MICRO INDINDICATEDNoCincinnati Children's Hospital Medical CenterComment on above: Performed By: #### TRACY SORIA DRUGRPD #### [facility] [address] [place] [address] Scottie KarenUrobilinogen Qn (U)0.2 EU/dlNoCincinnati Children's Hospital Medical CenterComment on above:Performed By: #### TRACY SORIA DRUGRPD #### [facility] [address] [place] [address] Scottie KarenWBC (Bld) [#/Vol]NegativeNormalNEGATIVEWhite HospitalComment on above:Performed By: #### TRACY SORIA DRUGRPD #### [facility] [address] [place] [address] Scottie KarenETHANOL (BLD ALC)on 25-08-2553Qpqndmu [Mass/Vol]mg/dLNoCincinnati Children's Hospital Medical CenterComment on above:Performed By: #### STEFANY, ACET, ETH #### [facility] [address] [place] [address] Scottie KarenEthanol [Mass/Vol]NOTE: 80 mg/dl is the legal limit for a blood alcohol levelNoCincinnati Children's Hospital Medical CenterComment on above:Performed By: #### SALYC, ACET, ETH #### [facility] [address] [place] [address] Scottie KarenPREGNANCY URon [id number], QUALNegativeNormalNEGATIVEWhite HospitalComment on above:Performed By: #### PREGU #### [facility] [address] [place] [address] Scottie KarenPROF 14(COMP METB)on 81-37-6457Zhubaet [Mass/Vol]4.3 g/dLNormal 3.5-5.0The [facility] CampusComment on above:Performed By: #### CMP #### [facility] [address] [place] [address] Scottie KarenAlbumin/Globulin [Mass ratio]1.3 {ratio}NormalWhite Hospital Comment on above:Performed By: #### CMP #### [facility] [address] [place] [address] Scottie KarenALP [Catalytic activity/Vol]73 U/LCritically tbc522-571Moh [facility] CampusComment on above:Performed By: #### CMP #### [facility] [address] [place] [address] Scottie KarenALT [Catalytic activity/Vol]18 U/LNormal9-52The [facility] Comment on above:Performed By: #### CMP #### [facility] [address] [place] [address] Scottie KarenAnion gap [Moles/Vol]15.7 mmol/LNormalThe St. [facility] CampusComment on above:Performed By: #### CMP #### [facility] [address] [place] [address] Scottie KarenAST [Catalytic activity/Vol]16 U/LVerzib09-01Lsl [facility] Comment on above:Performed By: #### CMP #### [facility] [address] [place] [address] Scottie KarenBilirubin Ql (U)0.3 mg/dLNormal0.2-1.3The [facility] CampusComment on above:Performed By: #### CMP #### [facility] [address] [place] [address] Scottie KarenCalcium [Mass/Vol]9.5 mg/dLNormal8.4-10.2[facility] Comment on above:Performed By: #### CMP #### [facility] [address] [place] [address] Scottie KarenChloride [Moles/Vol]102 mmol/ZDbboks79-652Tcl [facility] Comment on above:Performed By: #### CMP #### [facility] [address] [id number] Scottie KarenCO2 [Moles/Vol]22.8 mmol/MKlirlx65.0-30.0The [facility] Comment on above:Performed By: #### CMP #### [facility] [address] [id number] Scottie KarenCreatinine [Mass/Vol]0.76 mg/dLNormal0.52-1.04[facility] Comment on above:Performed By: #### CMP #### [facility] [address] [id number] Scottie KarenGlobulin (S) [Mass/Vol]3.3 g/dLNormalThe St[facility] CampusComment on above:Performed By: #### CMP #### [facility] [address] [address] Scottie KarenGlucose [Mass/Vol]122 mg/dLCritically awzv05-212BtsWhite HospitalComment on above:Performed By: #### CMP #### [facility] [address] [address] Scottie KarenPotassium [Moles/Vol]3.5 mmol/LNormal3.4-5.0[facility] Comment on above:Performed By: #### CMP #### [facility] [address] [address] Scottie KarenProtein [Mass/Vol]7.6 g/dLNormal6.1-8.2White HospitalComment on above:Performed By: #### CMP #### [facility] [address] [address] Scottie KarenSodium [Moles/Vol]137 mmol/YAcxxgd851-038UxsWhite Hospital Comment on above:Performed By: #### CMP #### [facility] [address] [address] Scottie KarenUrea nitrogen [Mass/Vol]12.0 mg/dLNormal6.4-19.3The [facility] CampusComment on above:Performed By: #### CMP #### [facility] [address] [place] [address] Scottie KarenUrea nitrogen/Creatinine [Mass ratio]15.8 mg/mgNoCincinnati Children's Hospital Medical CenterComment on above:Performed By: #### CMP #### [facility] [address] [place] [address] Scottie KarenSALICYLATEon 43-89-9538AXAEPRAQMC4.3 mg/dLNormal<=20.0The [facility] CampusComment on above:Performed By: #### SALYC, ACET, ETH #### [facility] [address] [place] [address] Scottie KarenURINE MICROSCOPIC ONLYon 98-86-8233Ploytavf LM.HPF (Urine sed) [#/Area]TRACENormalNONE SEENWhite HospitalComhelen [facility] on above:Performed By: #### TRACY SORIA DRUGRPD #### [facility] [address] [place] [address] Scottie KarenCASTNONE SEENNormalNONE SEENWhite HospitalComhelen [facility] on above: Performed By: #### TRACY SORIA DRUGRPD #### [facility] [address] [place] [address] Scottie KarenCrystals LM Nom (Urine sed)NONE SEENNormalNONE SEENWhite HospitalComhelen [facility] on above:Performed By: #### TRACY SORIA DRUGRPD #### [facility] [address] [place] [address] Scottie KarenCULTURENOT INDICATEDNoCincinnati Children's Hospital Medical CenterComment on above: Performed By: #### TRACY SORIA DRUGRPD #### [facility] [address] [place] [address] Scottie KarenEpithelial cells LM.HPF (Urine sed) [#/Area]RARENoCincinnati Children's Hospital Medical CenterComment on above:Performed By: #### TRACY SORIA DRUGRPD #### [facility] [address] [address] Scottie RoachenMUCOUSNONE SEENNormalNONE SEENWhite HospitalComment on above: Performed By: #### TRACY SORIA DRUGMASSIELD #### [facility] [address] [place] [address] Scottie KarenRBC (U) [#/Vol]2-4Dwambx6-5Ohr [facility] CampusComment on above: Performed By: #### TRACY SORIA DRUGRPD #### [facility] [address] [address] Scottie KarenWBC (Bld) [#/Vol]0-[address] [facility] CampusComment on above:Performed By: #### TRACY SORIA DRUGRPD #### [facility] [address] [address] Scottie Roachen Vital Signs Date TimeVital SignValuePerforming SprsmoqkmDcwistdr38-69-2702 15:04-0400Body mass index (BMI) [Ratio]35.25 kg/m2Tiffani JIMENEZ Work Phone: [facility] CenterQqcfroqxpt44-95-6007 15:04-0400Body sjkafc18.27 kgTiffani JIMENEZ Work Phone: [facility] CenterCiqjvwtxds85-65-1065 15:04-0400Diastolic blood gfxudxbs61 mm[Hg]Tiffani JIMENEZ Work Phone: [facility] CenterMxleprklrc65-75-9000 15:04-0400Systolic blood aapnfbuf305 mm[Hg]Tiffani JIMENEZ Work Phone: [facility] CenterVujmbwaruf09-79-9768 10:42-0400Body mass index (BMI) [Ratio]35.43 kg/m2Tiffani JIMENEZ Work Phone: [address] [address]Iwqhbfpulz69-38-4875 10:42-0400Body zilhtl32.72 kgTiffani JIMENEZ Work Phone: [address] [address]Rhbkadsauh05-95-8650 10:42-0400Diastolic blood eiouidmd61 mm[Hg]Tiffani JIMENEZ Work Phone: 1(419)483-[address] [place], [place] [address]Smvknlaiye23-33-4906 10:42-0400Systolic blood sofbhiat438 mm[Hg]Tiffani JIMENEZ Work Phone: 1(791)[address] [place], [place] 1842510-09-2025 14:30-0400Body mass index (BMI) [Ratio]35.04 kg/y9Olajrivx Gail LEGAL PRACTICE MANAGER Work Phone: 1(450)[address] [place], [place] 1842510-09-2025 14:30-0400Body ohbxnk12.72 kgKima Gail LEGAL PRACTICE MANAGER Work Phone: 1(548)[address] [place], [place] 1842510-09-2025 14:30-0400Diastolic blood veooefwr50 mm[Hg]Karen Gail LEGAL PRACTICE MANAGER Work Phone: 1(895)[address] [place], [place] 1842510-09-2025 14:30-0400Systolic blood ozbkgcwl098 mm[Hg]Karen Gail LEGAL PRACTICE MANAGER Work Phone: 1(262)[address] [place], [place] 1842510-01-2025 13:11-0400Body mass index (BMI) [Ratio]35.04 kg/d5Pikneoln Gail LEGAL PRACTICE MANAGER Work Phone: 1(923)[address] [place], [place] 1842510-01-2025 13:11-0400Body corfnr37.72 kgKristina Gail LEGAL PRACTICE MANAGER Work Phone: 1(266)[address] [place], [place] 1842510-01-2025 13:11-0400Diastolic blood wybcncui60 mm[Hg]Karen Gail LEGAL PRACTICE MANAGER Work Phone: 1(137)[address] [place], [place] 1842510-01-2025 13:11-0400Systolic blood ikvzcaop671 mm[Hg]Karen Gail LEGAL PRACTICE MANAGER Work Phone: 1(347)[address] [place], [place] 1842509-17-2025 09:22-0400Body mass index (BMI) [Ratio]33.8 kg/a7Dxgtftom Gail LEGAL PRACTICE MANAGER Work Phone: 1(918)[address] [place], [place] 1842509-17-2025 09:22-0400Body kfcike84.55 kgKristina Gail LEGAL PRACTICE MANAGER Work Phone: 1(971)[address] [place], [place] 1842509-17-2025 09:22-0400Diastolic blood fkfuxtrp82 mm[Hg]Karen Gail LEGAL PRACTICE MANAGER Work Phone: 1(984)142-[address] [place], [place] [address]Nkmtciljnn31-24-1642 09:22-0400Systolic blood uycvxbft601 mm[Hg]Karen Reynolds LEGAL PRACTICE MANAGER Work Phone: 1(162)808-[address] [place], [place] [address]Bxzppuntyl89-21-6739 09:44-0400Body mass index (BMI) [Ratio]33.13 kg/v2Fbtia Allie DO Work Phone: [phone])918-[address] [place], [place] [address]Yianjaayif08-15-4606 09:44-0400Body okqgpi77.82 kgCorey Allie DO Work Phone: 1(258)247-[address] [place], [place] [address]Mrrhdhftkw77-05-8337 09:44-0400Diastolic blood qhxhcxzy35 mm[Hg]Dwain Allie DO Work Phone: 1(469)781-[address] [place], [place] [address]Ilivefrvkf04-47-3629 09:44-0400Systolic blood qlbfpibz087 mm[Hg]Dwain Allie DO Work Phone: 1(447)[facility] [place], [place] [address]Qahqzzydxj66-66-9579 13:49-0400Body mass index (BMI) [Ratio]31.89 kg/n9Mhlth Allie DO Work Phone: 1(647)[facility] [place], [place] [address]Pbkwytoznl04-78-7803 13:49-0400Body sojitu14.65 kgCorey Allie DO Work Phone: 1(289)[facility] [place], [place] [address]Cqbdrxobyf52-98-0473 13:49-0400Diastolic blood whwtuatt08 mm[Hg]Dwain Allie DO Work Phone: 1(788)[facility] [place], [place] [address]Axhxgeztvq14-90-0644 13:49-0400Systolic blood mm[Hg]Dwain Allie DO Work Phone: 1(623)195-[address] [place] [address]-19-2025 09:20-0400Body cm Dominick Rojo MD Work Phone: [facility]08-19-2025 09:20-0400Body mass index (BMI) [Ratio]32.18 kg/m6MxkyjcDominick Rojo MD Work Phone: [facility]08-19-2025 09:20-0400Body gussri40.37 kgDominick Rojo MD Work Phone: 1(846)549-[address] [place], [place] 4746508-19-2025 09:20-0400Diastolic blood gshrikgg23 mm[Hg]Dominick Rojo MD Work Phone: 1(420)510-[address] [place], [place] 4746508-19-2025 09:20-0400Heart rate 104 /minDominick Rojo MD Work Phone: 1(124)796-[address] [place], [place] 4746508-19-2025 09:20-0400Systolic blood ejtcjoey370 mm[Hg]Dominick Rojo MD Work Phone: 1(498)[address]08-05-2025 11:55-0400Body mass index (BMI) [Ratio]30.82 kg/m2Tiffani JIMENEZ Work Phone: 1(052)021-[address] [place], [place] [address]Wijdyidyha41-16-4380 11:55-0400Body izvduk89.93 kgAmy João JIMENEZ Work Phone: 1(111)519-[address] [place], [place] [address]Ioqgxfmpjn17-48-1378 11:55-0400Diastolic blood urscwdqk16 mm[Hg]Tiffani Moyer PA Work Phone: 1(468)538-[address] [place], [place] [address]Fucssxpqxf90-53-7166 11:55-0400Systolic blood mm[Hg]Tiffani Moyer PA Work Phone: 1(589)510-[facility] CenterPrqxfpxrtl87-52-2972 10:26-0400Body mass index (BMI) [Ratio]28.13 kg/e2Mncow Allie DO Work Phone: 1(570)099-[address] [place], [place] [address]Egiygdgwsg76-18-8758 10:26-0400Body ldqoil76.03 kgCorey Allie DO Work Phone: 1(654)467-[address] [place], [place] [address]Cqzkpaulmp05-37-4137 10:26-0400Diastolic blood mm[Hg]Dwain Allie DO Work Phone: 1(484)216-[address] [place], [place] [address]Ttehujzrms66-59-4038 10:26-0400Systolic blood lutzahvo749 mm[Hg]Dwain Allie DO Work Phone: 1(683)728-[address] [place], [place] [address]Zpoksudlpj02-61-3207 12:48-0400Diastolic blood fjzdbyjp46 mm[Hg]Tiffani Moyer PA Work Phone: [facility] CenterKcqexoauzd89-63-1939 12:48-0400Systolic blood kowaicnh862 mm[Hg]Tiffani Moyer PA Work Phone: [facility] CenterIuupvkrvcj16-26-9206 12:01-0400Body mass index (BMI) [Ratio]26.26 kg/m2Tiffani Moyer PA Work Phone: [facility] CenterSzaeqxcvtg37-32-3330 12:01-0400Body .25 kgTiffani Moyer PA Work Phone: [facility] CenterRqngsgukjr39-78-8348 13:28-0400Body mass index (BMI) [Ratio]25.51 kg/a3Ajdxl Allie DO Work Phone: [facility] CenterGrzkqnjnkr58-20-0009 13:28-0400Body .32 kgCorey Allie DO Work Phone: [facility] CenterFcyvswmusx78-52-8837 13:28-0400Diastolic blood lclclkku26 mm[Hg]Dwain Allie DO Work Phone: [facility] CenterQtpefshekf24-96-2053 13:28-0400Systolic blood cilewuvy877 mm[Hg]Dwain Allie DO Work Phone: [facility] CenterCbrrefjqlr16-77-5042 13:41-0400Body mass index (BMI) [Ratio]25.69 kg/m2[facility]04-03-2025 13:41-0400Body jverlp26.77 kgAlvin J. [facility]04-03-2025 13:41-0400Diastolic blood opeguemi46 mm[Hg][facility]04-03-2025 13:41-0400Systolic blood zlwjdpyy125 mm[Hg][facility]02-24-2025 14:48-0500Body mass index (BMI) [Ratio]26.24 kg/y7Ctppn Allie DO Work Phone: [facility] CenterEznsrhmyad26-73-6439 14:48-0500Body zpleti44.19 kgCorey Allie DO Work Phone: [facility] CenterLnissahhkz04-69-1950 14:48-0500Diastolic blood zmgpvupw48 mm[Hg]Dwain Allie DO Work Phone: 1(199)084-[facility] CenterHekfjrtwow85-39-7328 14:48-0500Systolic blood yjnzowpw534 mm[Hg]Dwain Allie DO Work Phone: 1(486)816-[address] [place], [place] [address]Wrbohsxyjn83-78-5172 16:16-0500Body mass index (BMI) [Ratio]25.69 kg/m2Amy João JIMENEZ Work Phone: 1(433)822-[address] [place], [place] [address]Vtdleveyux23-64-2663 16:16-0500Body nfhvaz20.77 kgAmy João JIMENEZ Work Phone: 1(499)211-[address] [place], [place] [address]Gkkwepaxpm13-50-5025 16:16-0500Diastolic blood eincnddz88 mm[Hg]Tiffani JIMENEZ Work Phone: 1(421)756-[facility] CenterSrmdqjoyuc85-69-8606 16:16-0500Systolic blood evnztkhp389 mm[Hg]Tiffani João JIMENEZ Work Phone: 1(751)741-[address] [place], [place] [address]Oodgadyhdq06-61-4876 14:03-0500Body mass index (BMI) [Ratio]28.84 kg/x7Pckyj Allie DO Work Phone: 1(055)227-[address] [place], [place] [address]Tpxpsdjywx96-04-0216 14:03-0500Body .85 kgCorey Allie DO Work Phone: 1(365)691-[facility] CenterErblxukbtl46-68-3361 14:03-0500Diastolic blood mm[Hg]Dwain Allie DO Work Phone: 1(503)393-[address] [place], [place] [address]Tlqsdeabfr62-46-2147 14:03-0500Systolic blood irrlzrgu716 mm[Hg]Dwain Allie DO Work Phone: 1(677)989-[address] [place], [place] [address]Ijtptvzvki84-87-3902 13:49-0500Body mass index (BMI) [Ratio]28.52 kg/y8Ijqqb Allie DO Work Phone: 1(495)105-[address] [place], [place] [address]Sghaywyaid06-34-8738 13:49-0500Body gjiief63.03 kgCorey Allie DO Work Phone: [address] [address]Bjimtzcbdy77-46-2417 13:49-0500Diastolic blood mm[Hg]Dwain Allie DO Work Phone: [address] [address]Ytxtqkifix83-96-0842 13:49-0500Systolic blood heyslxri387 mm[Hg]Dwain Allie DO Work Phone: 1(957)137-[facility]3[address] [address]Gqesdltqpz68-63-7863 15:17-0500Body mass index (BMI) [Ratio]26.75 kg/m2Amy João JIMENEZ Work Phone: 1(695)352-[address] [place] [address]-06-2024 15:17-0500Body ddumrn85.49 kgAmy João JIMENEZ Work Phone: 1(340)720-[address] [place] [address]-06-2024 15:17-0500Diastolic blood yxwnnsqb38 mm[Hg]Tiffani JIMENEZ Work Phone: 1(282)587-[facility]6[address] [address]Cwujvbzajw45-02-4749 15:17-0500Systolic blood yazcnuyg733 mm[Hg]Tiffani JIMENEZ Work Phone: 1(405)738-[address] [place], [place] [address]Baxjuitsyw12-28-4629 14:33-0400Body mass index (BMI) [Ratio]26.57 kg/q2Zfuum Allie DO Work Phone: 1(672)357-[address] [place], [place] [address]Puudfepqgs94-48-1147 14:33-0400Body ophrvz63.04 kgCorey Allie DO Work Phone: 1(871)105-[facility] CenterGrdjsvflxp57-43-3396 14:33-0400Diastolic blood fidxgtow23 mm[Hg]Dwain Allie DO Work Phone: 1(567)752-[address] [place] [address]-23-2024 14:33-0400Systolic blood xakpazeg966 mm[Hg]Dwain Allie DO Work Phone: 1(502)131-[address] [place] [address]-10-2024 10:20-0400Body mass index (BMI) [Ratio]25.51 kg/m2Amy João PA Work Phone: 1(142)310-[facility]0[address] [address]Jipwezjfzp36-66-8966 10:20-0400Body aokvba00.32 kgAmy João JIMENEZ Work Phone: [facility] CenterKxzdigqypw89-65-5882 10:20-0400Diastolic blood vkyrjqvn94 mm[Hg]Tiffani JIMENEZ Work Phone: [facility] CenterUfuvmnholg32-98-9860 10:20-0400Systolic blood ediczwbx118 mm[Hg]Tiffani JIMENEZ Work Phone: [facility] CenterTppxqspxvu29-70-0404 15:08-0400Body mass index (BMI) [Ratio]24.23 kg/d9Yzapu Allie DO Work Phone: [facility] CenterRtgmnsfjis31-56-4624 15:08-0400Body qkshgo19.05 kgCorey Allie DO Work Phone: [facility] CenterVuwyqetrax49-54-7597 15:08-0400Diastolic blood envabpkt99 mm[Hg]Dwain Allie DO Work Phone: [facility] CenterQkkjhyunns54-98-9203 15:08-0400Systolic blood asaooedh310 mm[Hg]Dwain Allie DO Work Phone: 1(034)759-[address] [place], [place] [address]Fyfzssuxfc53-71-1285 14:57-0400Body hvtudy163 cm Dominick Rojo MD Work Phone: 1(290)[address] [place], [place] 6205409-23-2024 14:57-0400Body mass index (BMI) [Ratio]24.21 kg/i8ZuayggDominick Rojo MD Work Phone: 1(424)[address] [place], [place] 6205409-23-2024 14:57-0400Body kgDominick Rojo MD Work Phone: 1(985)[address] [place], [place] 6205409-23-2024 14:57-0400Diastolic blood uqdmjqji08 mm[Hg]Dominick Rojo MD Work Phone: 1(677)[address] [place], [place] 6205409-23-2024 14:57-0400Heart rate 94 /minDominick Rojo MD Work Phone: 1(635)[address] [place], [place] 6205409-23-2024 14:57-0400Systolic blood bnmrismy318 mm[Hg]Dominick Rojo MD Work Phone: [facility]09-11-2024 13:45-0400Body mass index (BMI) [Ratio]23.34 kg/y9Bwanq Allie DO Work Phone: [facility] CenterMlagcpscxj46-75-0979 13:45-0400Body .76 kgCorey Allie DO Work Phone: [facility] CenterKbaqoghvfk76-53-9522 13:45-0400Diastolic blood ivhfrkai49 mm[Hg]Dwain Allie DO Work Phone: [facility] CenterFaozosvndh61-29-0062 13:45-0400Systolic blood ozkateti000 mm[Hg]Dwain Allie DO Work Phone: [facility] CenterBuubjwmjyw75-95-6911 14:35-0400Body smiort969.56 cmAmbxin Wing Other [employer] Other 08-26-2022 14:35-0400Body mass index (BMI) [Ratio] 20.42 kg/p5KbjddAracelis Wing Other [employer] Other 08-26-2022 14:35-0400Body qtfymsupaph34 [degF]Aracelis Wing Other noMENA360 Other 08-26-2022 14:35-0400Body rnjpap28.98 kgAracelis Wing Other [employer] Other 08-26-2022 14:35-0400Diastolic blood xkveadxh46 mm[Hg] Aracelis Wing Other [employer] Other 08-26-2022 14:35-0400Respiratory rate20 /minAracelis Wing Other [employer] Other 08-26-2022 14:35-3254YlW5% (BldA) [Mass fraction]100 % [facility]acelis Wing [facility] Other 08-26-2022 14:35-0400Systolic blood anipjnwl213 mm[Hg] Aracelis Wing [facility] Other Encounters Encounter DateEncounter TypeCare ProviderFacilityStart: 03-09-2025 End: 01-74-2349gzzmdliqqjGVQ DIONNAEYNot AvailableStart: 03-09-2025 End: 53-60-8711Wlzygnmg flow Caryn JIMENEZ Work Phone: [facility] OBGYNComment on above:Third trimester ([facility]); 38 weeks gestation of ([facility])Start: 03-09-2025 End: 18-26-3814Phntcn Antonino JIMENEZ Work Phone: [facility]BGYNStart: 03-09-2025 End: 60-19-2170Ubnqza Antonino JIMENEZ Work Phone: [facility]BGYNStart: 03-03-2025 End: 57-32-7491Facecr Antonino JIMENEZ Work Phone: [facility]BGYNStart: 03-03-2025 End: 43-65-8532Zjdqul Antonino JIMENEZ Work Phone: [facility]BGYNStart: 03-03-2025 End: 52-91-1255Gcczkyzv flow sheetTiffani JIMENEZ Work Phone: [facility]BGYNComment on above:Third trimester ([facility]); 37 weeks gestation of ([facility])Start: 03-03-2025 End: 61-29-4847kwpkmiiaioATU RAMEYNot AvailableStart: 02-24-2025 End: 11-82-3099frmymhrepaSTURSADE EBERLYNot AvailableStart: 02-24-2025 End: 93-56-6150Cxqfceaa flow sheetKaren Zambranoly LEGAL PRACTICE MANAGER Work Phone: [facility]BGYNComment on above:Third trimester ([facility]); 36 weeks gestation of ([facility])Start: 02-24-2025 End: 35-90-8824Ftexev flowsheetKaren Reynolds LEGAL PRACTICE MANAGER Work Phone: [facility]BGYNStart: 02-24-2025 End: 16-70-8008Xfbmsl flowsheetKima Gail LEGAL PRACTICE MANAGER Work Phone: [facility]BGYNStart: 02-16-2025 End: 91-61-8323Vzfenf flowsheetKima Gail LEGAL PRACTICE MANAGER Work Phone: [facility]BGYNStart: 02-16-2025 End: 04-99-8660Etaoaj flowsheetKaren Zambranoly LEGAL PRACTICE MANAGER Work Phone: [facility]BGYNStart: 02-16-2025 End: 60-96-7984kekuwzhtdqQRKCGGZM EBERLYNot AvailableStart: 02-16-2025 End: 11-54-5384Zpxcajzo flow sheetKima Gail LEGAL PRACTICE MANAGER Work Phone: [facility]BGYNComment on above:35 weeks gestation of ([facility]); Third trimester ([facility]); 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Start: 02-03-2025 End: 37-43-5862addashmawgPWAZKChoctaw [facility] PPGStart: 02-02-2025 End: 29-52-2231Dgfzuv flowsheetKaren Reynolds LEGAL PRACTICE MANAGER Work Phone: [facility]BGYNStart: 02-02-2025 End: 89-54-9452Ujwbdf flowsheetKaren Reynolds LEGAL PRACTICE MANAGER Work Phone: [facility]BGYNStart: 02-02-2025 End: 01-37-7382Sghdvuju flow sheetJuanjoistina Gail LEGAL PRACTICE MANAGER Work Phone: [facility]BGYNComment on above:Third trimester ([facility] 33 weeks gestation of ([facility])Start: 02-02-2025 End: 64-68-0911kshbftfahfOXFNWIOA EBERLYNot AvailableStart: 01-20-2025 End: 88-17-0986Xosktw flowsheetCorey Allie DO Work Phone: [facility]YNStart: 01-20-2025 End: 33-94-5652Stprcr flowsheetCorey Allie DO Work Phone: [facility]BGYNStart: 01-20-2025 End: 18-16-1805tlavetzklpRCQUU FAZIONot AvailableStart: 01-20-2025 End: 59-78-0016Dooxegdk flow sheetCorey Allie DO Work Phone: [facility] [facility]BGYNComment on above:Third trimester ([facility] 31 weeks gestation of ([facility])Start: 01-05-2025 End: 24-74-8342Mnztjz flowsheetCorey Allie DO Work Phone: [facility]YNStart: 01-05-2025 End: 46-66-5909Nvzxrk flowsheetCorey Allie DO Work Phone: [facility] [facility]YNStart: 01-05-2025 End: 96-45-8047bdrqbvyqrwCBFIN FAZIONot AvailableStart: 01-05-2025 End: 23-50-5612Dbwzhbdf flow sheetCorey Allie DO Work Phone: [facility]BGYNComment on above:Third trimester ([facility]); 29 weeks gestation of ([facility]); 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Start: 01-04-2025 End: 55-76-5947Sthplh consultation new/estab patient 60 minNauman Artur MD Work Phone: [phone]-[facility] at [facility] Comment on above:Encounter for suspected anomaly ruled out (Primary Dx); cardiac echogenic focus, antepartum, fetus 1; 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, single or unspecified fetus; Echogenic intracardiac focus of fetus on ultrasoundStart: 01-04-2025 End: 66-27-8477RaxiumHernan Carrizales RNMaternal- Medicine at [facility] CenterComment on above: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, single or unspecified fetus (Primary Dx); Echogenic intracardiac focus of fetus on ultrasoundStart: 12-21-2024 End: 83-78-8526Rrqmne Antonino JIMENEZ Work Phone: NOAL [place] OBGYNStart: 12-21-2024 End: 83-81-4376Xipqzc Antonino JIMENEZ Work Phone: NOHA Shayy OBGYNStart: 12-21-2024 End: 37-34-1214hgefnhgqmmYWV RAMEYNot AvailableStart: 12-21-2024 End: 14-47-3493Cngsngfk flow Caryn JIMENEZ Work Phone: NOEJ Shayy OBGYNComment on above:Second trimester ([facility]); 27 weeks gestation of ([facility]); size inconsistent with dates ([facility])Start: 12-20-2024 End: 91-19-9620Cirjyjpyg Result EncounterCorey Allie DO Work Phone: noms External Department UnsolicitedStart: 12-20-2024 End: 63-10-9216Rerztmijg Result EncounterCorey Allie DO Work Phone: noms External Department UnsolicitedStart: 11-25-2024 End: 24-67-6219Jcanm Vanita Rojo MD Work Phone: [phone]-Rylfd Medicine at [facility] Start: 11-25-2024 End: 31-70-8708Qdjwfupag encounterBroabbi Smith RNMaternal- Medicine at [facility] Hospitaltart: 11-22-2024 End: 86-80-9163Endgofgq flow sheetCorey Allie DO Work Phone: NOMS BCP OBComment on above:Second trimester ([facility]); Abnormal finding on ultrasound; 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; Diabetes mellitus screeningStart: 11-22-2024 End: 70-16-3447crcxosrzieZJAMO FAZIONot AvailableStart: 10-18-2024 End: 94-95-2207Djzykq Antonino JIMENEZ Work Phone: NOMS BCP OBStart: 10-18-2024 End: 62-87-0912Fblasm Antonino JIMENEZ Work Phone: NOMS BCP OBStart: 10-18-2024 End: 63-80-1991Czqlcmea Result EncounterTiffani JIMENEZ Work Phone: NOMS External Department UnsolicitedStart: 10-18-2024 End: 83-63-5427Owxftghr flow Cayrn JIMENEZ Work Phone: NOMS BCP OBComment on above:Second trimester ; 18 weeks gestation of ; Screening, , for anatomic survey; STD exposureStart: 10-18-2024 End: 08-67-8013mufasgrlepJAQ RAMEYNot AvailableStart: 09-20-2024 End: 96-24-2634Dsdgzx flowsheetCorey Allie DO Work Phone: NOMS BCP OBStart: 09-20-2024 End: 84-15-4828Oyjbov flowsheetCorey Allie DO Work Phone: NOMS BCP OBStart: 09-20-2024 End: 07-46-3297Gklhiugu flow sheetCorey Allie DO Work Phone: NOMS BCP OBComment on above:Second trimester ; 14 weeks gestation of pregnancyStart: 09-20-2024 End: 67-21-4676swgylnujtbQCLNV FAZIONot AvailableStart: 08-19-2024 End: 92-04-1757Dpjthl outpatient visit 5 minutesNoms Bcp Ob Allie NurseNOMS BCP OBComment on above:GA: 4k7oKvohy: 08-19-2024 End: 49-35-7522hixxhsbcnlWQM RAMEYNot AvailableStart: 07-14-2024 End: 40-94-9666Zjznhrado Result EncounterCorey Allie DO Work Phone: NOMS External Department UnsolicitedStart: 07-14-2024 End: 78-50-5940Segpkhpsk Result EncounterCorey Allie DO Work Phone: NOMS External Department UnsolicitedStart: 07-12-2024 End: 84-69-6941ofefwykiuyHBRTB FAZIONot AvailableStart: 07-12-2024 End: 05-64-5713Wcsnsr outpatient visit 15 minutesCorey Allie DO Work Phone: NOMS BCP OBComment on above:Missed mensesStart: 07-12-2024 End: 81-21-9982Klszjghpx Result EncounterCorey Allie DO Work Phone: noms External Department UnsolicitedStart: 07-12-2024 End: 37-02-2024Enmsyhubw Result EncounterCorey Allie DO Work Phone: noms External Department UnsolicitedStart: 06-21-2024 End: 20-32-9466qysttyqwniUXO RAMEYNot AvailableStart: 06-21-2024 End: 86-33-9903Zxdxqcftnu care visitTiffani JIMENEZ Work Phone: NOMS BCP OBComment on above:6 weeks follow-upStart: 04-23-2024 End: 60-40-8093Mqufikbbu Result EncounterCorey Allie DO Work Phone: NOMS External Department UnsolicitedStart: 04-23-2024 End: 84-72-6478Wcaumihbi Result EncounterCorey Allie DO Work Phone: noms External Department UnsolicitedStart: 04-21-2024 End: 17-12-3115Hrwanpwwi Result EncounterCorey Allie DO Work Phone: noms External Department UnsolicitedStart: 04-21-2024 End: 65-58-0388Ydizukeku Result EncounterCorey Allie DO Work Phone: NOMS External Department UnsolicitedStart: 04-19-2024 End: 24-06-6297Rkovme flowsheetCorey Allie DO Work Phone: NOMS BCP OBStart: 04-19-2024 End: 75-78-7310Ujhmdm flowsheetCorey Allie DO Work Phone: NOMS BCP OBStart: 04-19-2024 End: 12-02-2400Wiebrzhd flow sheetCorey Allie DO Work Phone: NOMS BCP OBComment on above:37 weeks gestation of ; Third trimester pregnancyStart: 04-19-2024 End: 34-08-6603xyrvfkxkuzVNDXY FAZIONot AvailableStart: 04-12-2024 End: 74-02-5857Szgmob flowsheetCorey Allie DO Work Phone: NONR BCP OBStart: 04-12-2024 End: 43-50-1400Brtdxi flowsheetCorey Allie DO Work Phone: NOMS BCP OBStart: 04-12-2024 End: 75-65-9590vfyfpffwegSYICX FAZIONot AvailableStart: 04-12-2024 End: 17-59-3841Fqgrpcqr flow sheetCorey Allie DO Work Phone: NOMS BCP OBComment on above:Third trimester ; 36 weeks gestation of ; Bacterial infection due to mycoplasmaStart: 03-31-2024 End: 84-31-7738Rubgqzorw Result EncounterCorey Allie DO Work Phone: NOMS External Department UnsolicitedStart: 03-31-2024 End: 98-36-9726Tbyuzbkxb Result EncounterCorey Allie DO Work Phone: NOMS External Department UnsolicitedStart: 03-30-2024 End: 05-11-4896Hvbficnad Result EncounterCorey Allie DO Work Phone: NOCG External Department UnsolicitedStart: 03-30-2024 End: 64-72-8788Lbiuxscen Result EncounterCorey Allie DO Work Phone: NOMS External Department UnsolicitedStart: 03-24-2024 End: 82-37-1919Nssbpyiv flow sheetAmy João PA Work Phone: NOMS BCP OBComment on above:Third trimester ; 34 weeks gestation of pregnancyStart: 03-24-2024 End: 68-18-4780sqctftcjbjWHM Chance AvailableStart: 03-24-2024 End: 90-94-4274Harxkc flowsheetTiffani JIMENEZ Work Phone: NOMS BCP OBStart: 03-24-2024 End: 70-97-3838Gdvhzo flowsheetTiffani JIMENEZ Work Phone: NOMS BCP OBStart: 03-10-2024 End: 88-33-3537Vymneyhr flow sheetCorey Allie DO Work Phone: NOMS BCP OBComment on above:Third trimester ; 32 weeks gestation of ; SGA (small for gestational age)Start: 03-10-2024 End: 02-11-5511Hysomr flowsheetCorey Allie DO Work Phone: NOMS BCP OBStart: 03-10-2024 End: 47-93-2326Uzvygn flowsheetCorey Allie DO Work Phone: NOMS BCP OBStart: 02-26-2024 End: 23-38-3543Knpbna flowsheetAmy João PA Work Phone: NOMS BCP OBStart: 02-26-2024 End: 73-65-7061Lbkxcy flowsheetTiffani JIMENEZ Work Phone: noms BCP OBStart: 02-26-2024 End: 63-29-1478Nbgbthft flow sheetAmy João JIMENEZ Work Phone: noms BCP OBComment on above:Third trimester ; 30 weeks gestation of pregnancyStart: 02-11-2024 End: 90-37-2892Vdpvcyyj flow sheetCorey Allie DO Work Phone: noms BCP OBComment on above:Third trimester Start: 02-11-2024 End: 64-29-2321Scfabg flowsheetCorey Allie DO Work Phone: NOMS BCP OBStart: 02-11-2024 End: 61-39-1730Wsffes flowsheetCorey Allie DO Work Phone: noms BCP OBStart: 02-09-2024 End: 46-54-1244Ogpzen consultation new/estab patient 40 Robb Rojo MD Work Phone: [phone]-Vtbcc Medicine at [facility] Comment on above:Encounter for suspected anomaly ruled out (Primary Dx) Start: 02-09-2024 End: 57-97-7763nwfufhbvwiZBNYE R [facility] Hospitaltart: 02-05-2024 End: 29-06-1765Uoensv OnlyNot In System Ref ProvMaternal- Medicine at [facility] Hospitaltart: 01-28-2024 End: 29-53-9965Uobjgq flowsheetCorey Allie DO Work Phone: NOPP BCP OBStart: 01-28-2024 End: 83-84-0264Wrxiut flowsheetCorey Allie DO Work Phone: noms BCP OBStart: 01-28-2024 End: 56-42-3728Wkydpwtg flow sheetCorey Allie DO Work Phone: noms BCP OBComment on above:26 weeks gestation of pregnancyStart: 01-14-2024 End: 75-02-3440Ocizkmlmo Result EncounterCorey Allie DO Work Phone: noms External Department UnsolicitedStart: 01-14-2024 End: 08-13-2333Kmfsxdkgz Result EncounterCorey Allie DO Work Phone: noms External Department UnsolicitedStart: 10-03-2023 End: 22-75-8605Ftrdet OnlyScanning Provider ExternalProMedica Physicians Internal Medicine - Family MedicineStart: 08-38-9709Giaxcsu encounter status Scanning [facility] SystemStart: 01-11-2022 End: 80-90-4066jrxvkmryyhMszci Keller Other [facility] Other Start: 73-78-6621Covhmp outpatient new 30 minutesAmber MaciejFPG Urgent Care ClydeStart: 06-03-2019 End: 15-01-9989Qbpoeuc encounter procedureTONY LEFacility:H1 Procedures DateProcedureProcedure DetailPerforming ClinicianStart: 88-27-9593Ypqnv dip stick/tablet rgnt non-auto w/o micrscpAmy João PA Work Phone: Start: 58-50-2425Btgtx dip stick/tablet rgnt non-auto w/o micrscpAmy João PA Work Phone: Start: 40-59-5099Hwebi dip stick/tablet rgnt non-auto w/o micrscpKristina Gail LEGAL PRACTICE MANAGER Work Phone: Start: 49-01-7991Geblh dip stick/tablet rgnt non-auto w/o micrscpKristina Gail LEGAL PRACTICE MANAGER Work Phone: Start: 75-39-2484Jgpuo dip stick/tablet rgnt non-auto w/o micrscpKristina Gail LEGAL PRACTICE MANAGER Work Phone: Start: 39-99-3851Hewig dip stick/tablet rgnt non-auto w/o micrscpCorey Allie DO Work Phone: Start: 26-12-2888Xhvvu dip stick/tablet rgnt non-auto w/o micrscpCorey Allie DO Work Phone: Start: 47-70-5520Ykxvl dip stick/tablet rgnt non-auto w/o micrscpAmy João JIMENEZ Work Phone: Start: 91-36-5274ZZY DRUG SCREEN RAPID (URINE)Dwain Allie DO Work Phone: Start: 42-73-8940XFHOTYNHVT OFFICENot In System Ref ProvStart: 89-99-3440Hzbew dip stick/tablet rgnt non-auto w/o micrscpCorey Allie DO Work Phone: Start: 94-17-1673WEODDTKZU VAGINITIS (HTRX)Tiffani JIMENEZ Work Phone: Start: 80-42-7272Bpirj dip stick/tablet rgnt non-auto w/o micrscpAmy João JIMENEZ Work Phone: Start: 33-95-1292Aykfxinf rubellaNot In System Ref ProvStart: 93-02-1263WHPDEZVR TOTAL(UNKNOWN SYPHILIS STATUS)Not In System Ref ProvStart: 93-02-7215Fmqnq dip stick/tablet rgnt non-auto w/o micrscpCorey Allie DO Work Phone: Start: 08-19-2024 End: 48-07-8144Rtlwk dip stick/tablet rgnt non-auto w/o micrscpCorey Allie DO Work Phone: Start: 93-92-2986IRRQNWTZBK OFFICENot In System Ref ProvStart: 81-29-2619MHY PREG QUANT HCGCorey Allie DO Work Phone: Start: 49-08-7501HLL PREG QUANT HCGCorey Allie DO Work Phone: Start: 25-46-1189Ftovg test visual color cmprsn methsCorey Allie DO Work Phone: Start: 89-51-3592FAC CBC WITH AUTO DIFFCorey Allie DO Work Phone: Start: 45-15-8637CUQB CBC WITH PLATELET NO DIFFERENTIALCorey Allie DO Work Phone: Start: 67-52-2341Qzcid dip stick/tablet rgnt non-auto w/o micrscpCorey Allie DO Work Phone: Start: 61-98-7188Cbycr dip stick/tablet rgnt non-auto w/o micrscpCorey Allie DO Work Phone: Start: 16-29-8047ATI TOTAL PROTEIN 24 HOUR URINECorey Allie DO Work Phone: Start: 44-02-5065TTR CBC WITH AUTO DIFFCorey Allie DO Work Phone: Start: 26-72-5541Tfabp dip stick/tablet rgnt non-auto w/o micrscpAmy João JIMENEZ Work Phone: Start: 37-06-3277Gsqct dip stick/tablet rgnt non-auto w/o micrscpCorey Allie DO Work Phone: Start: 72-47-9933Waxwo dip stick/tablet rgnt non-auto w/o micrscpAmy João JIMENEZ Work Phone: Start: 09-70-5960Argzs dip stick/tablet rgnt non-auto w/o micrscpCorey Allie DO Work Phone: Start: 97-76-1755GNEXXWQHCM OFFICENot In System Ref ProvStart: 12-32-1872OXT CBC WITH AUTO DIFFCorey Allie DO Work Phone: Start: 57-20-4550FGMRBTUP LAB TESTNot In System Ref ProvStart: 53-24-3946BCTTSOLP LAB TESTNot In System Ref ProvStart: 10-16-2023 Antibody Elena Rojo MD Work Phone: Start: 98-40-5234Fssudisutx glycosylated m6fUnbszpjb Provider ExternalStart: 36-55-4116Twwucfanu c antibodyNot In System Ref Prov Start: 57-66-7315DUP 1&2 AB/AG SCREEN (P24 AG)Not In System Ref ProvStart: 54-58-4312Qaqe ia hepatitis b surface antigenNot In System Ref ProvStart: 13-04-2336LMNP AND SCREENNot In System Ref ProvStart: 59-42-5413Efil scrn 1+ class nonchromoNot In System Ref ProvStart: 12-52-1389OFJUTNBAWJ OFFICENot In System Ref ProvStart: 52-63-2870PA TRANSVAGINALScanning Provider ExternalStart: 82-62-9130EIZDJLJS LAB TESTNot In System Ref ProvStart: 43-91-7888Dwgom depression screening assessmentScanning External Plan of Treatment DateCare ActivityDetailAuthorStart: 90-37-3007Rfvglui ScreeningTobacco Screening [facility] SystemStart: 01-04-2026 End: 59-41-1108HH MFM with or without consultUS MFM with or without consult Imaging Routine 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, single or unspecified fetus Echogenic intracardiac focus of fetus on ultrasound Expected: 01/04/2026 (Approximate), Expires: 01/04/2026[facility] Work Phone: comment on above:Expected: 01/04/2026 (Approximate), Expires: 01/04/2026Start: 03-09-2025 End: 42-96-8728Qgpmajx encounter sqtehanaw20/22/2025 2:50 PM EDT Routine SANTY THOMAS [address] [place], [id number] Tiffani Moyer PA [address] [place] [address] SANTY AUtart: 03-03-2025 End: 33-40-8111Kojfkbl encounter ipceajdyh91/16/2025 10:20 AM EDT Routine NOMS Shayy THOMAS [address] [place] [address] Tiffani Moyer PA [address] [place] [address] ArrivedNOMS Lucas OBGYNComment on above:ArrivedStart: 02-24-2025 End: 57-73-1503Mbvvevk encounter /09/2025 2:20 PM EDT Routine NOMEmily THOMAS [address] [facility] [id number] Karen Reynolds, LEGAL PRACTICE MANAGER [address] [place] [address] SANTY [place] OBGYNStart: 02-24-2025 End: 57-07-7314HCRXKAG, GROUP B STREP WITH SUSCEPTIBLITYCULTURE, GROUP B STREP WITH SUSCEPTIBLITY Lab Routine Third trimester ([facility]) Expected: 02/24/2025, Expires: 02/24/2026[facility] Work Phone: comment on above:Expected: 02/24/2025, Expires: 02/24/2026Start: 02-16-2025 End: 91-66-1676Ilcdhrg encounter uqrsywaml92/01/2025 1:00 PM EDT Routine [facility]ANT[facility] THOMAS [address] [facility] [place], [id number] Karen Reynolds, LEGAL PRACTICE MANAGER [address] [place] [address] SANTY [place] OBGYNStart: 11-50-3815Hwhue BMI ScreeningAdult BMI ScreeningProMartins Ferry Hospitalca [facility] SystemStart: 88-99-3655Knwvaed ScreeningTobacco ScreeningProMartins Ferry Hospitalca [facility] SystemStart: 02-03-2025 End: 13-01-3174Fwlkrgb encounter wnqpyyndh67/18/2025 11:00 AM EDT Appointment Maternal Medicine [place] [id number] [facility] [address] [place] [address] Oidvuuop Medicine ShoupStart: 02-02-2025 End: 27-48-4169Ybgbdtf encounter procedureNOMS [place] OBGYNComment on above: ArrivedStart: 01-20-2025 End: 03-28-2415Aqkamix encounter beqfahygo17/04/2025 9:00 AM EDT Routine NOMS Shayy OBGYN [address] [place], [id number] Dwain Kelley, DO [address] [place] [address] NOMEmily [place] OBGYNStart: 01-17-2025 Influenza vaccinationInfluenza VaccineProUniversity [facility]als [facility] SystemStart: 01-05-2025 End: 51-07-7508Pwnaubz encounter zukmxvoid65/20/2025 1:40 PM EDT Routine NOMS Shayy OBGYN [address] [place], [id number] Dwain Kelley, DO [address] [place] [address] NOMEmily [place] OBGYNStart: 01-05-2025 End: 85-89-9001Jljamioxibjb / ancillary services kimghroenu92/20/2025 1:00 PM EDT Ancillary Procedure [facility] OBGYN [address] [place] [address] [phone] Shayy OBGYNStart: 01-04-2025 End: 96-07-5084Waanbpm encounter procedureProSumma Health [facility] US ImagingStart: 12-21-2024 End: 63-39-2444IE for pregnancyUS OB follow up transabdominal approach Imaging Routine size inconsistent with dates ([facility]) Expected: 12/21/2024, Expires: 04/22/2025[facility] Work Phone: comment on above:Expected: 12/21/2024, Expires: 04/22/2025Start: 12-21-2024 End: 99-14-4912Zywypgt encounter procedureNOMS BCP OBStart: 11-22-2024 End: 54-86-2972SFB panel - Blood by Automated countCBC Lab Routine Diabetes mellitus screening Expected: 11/22/2024 (Approximate), Expires: 11/22/2025[facility] Work Phone: comment on above:Expected: 11/22/2024 (Approximate), Expires: 11/22/2025Start: 11-22-2024 End: 08-62-9344Mgaalqsvcus of glucose 1 hour after glucose challenge for glucose tolerance testGlucose tolerance, 1 hour Lab Routine Diabetes mellitus screening Expected: 11/22/2024 (Approximate), Expires: 11/22/2025NOMS HealthcareComment on above:Expected: 11/22/2024 (Approximate), Expires: 11/22/2025Start: 11-22-2024 End: 89-35-0417Cmudmtn encounter fgwuvorvw48/07/2025 10:20 AM EDT Routine [facility] BCP OB [address] [address] [place] [address] Dwain Kelley, DO [address] [place] [address] NOMS BCP OBStart: 11-22-2024 End: 37-63-0173Rqggsfqunrbb / ancillary services hjyxblxsew27/07/2025 9:00 AM EDT Ancillary Procedure [facility] BCP OB [address] [place] [address] NOMS BCP OBStart: 10-18-2024 End: 67-35-7651Uzuqk fetoprotein, maternalAlpha fetoprotein, maternal Lab Routine 18 weeks gestation of Expected: 10/18/2024 (Approximate), Expires: 12/18/2024NOMS HealthcareComment on above:Expected: 10/18/2024 (Approximate), Expires: 12/18/2024Start: 10-18-2024 End: 64-97-8589TT for pregnancyUS OB 14+ weeks anatomy scan Imaging Routine Screening, , for anatomic survey Expected: 10/18/2024, Expires: 2025NOMS HealthcareComment on above:Expected: 10/18/2024, Expires: 2025Start: 10-18-2024 End: 92-73-2370Iqbcuof encounter procedureNOMS BCP OBComment on above:Arrived Start: 09-20-2024 End: 20-19-7878Zizmfyt encounter procedureNOMS BCP OBComment on above:Arrived Start: 08-19-2024 End: 07-14-6706NTK/RhABO/Rh Lab Routine Missed menses , unspecified gestational age Expected: 08/19/2024 (Approximate), Expires: 08/19/2025NOMS HealthcareComment on above:Expected: 08/19/2024 (Approximate), Expires: 08/19/2025Start: 08-19-2024 End: 22-16-2007Zrjnn type and Indirect antibody screen panel - BloodType and screen Lab Routine Missed menses , unspecified gestational age Expected: 08/19/2024 (Approximate), Expires: 08/19/2025NOMS HealthcareComment on above:Expected: 08/19/2024 (Approximate), Expires: 08/19/2025Start: 08-19-2024 End: 55-19-7792Vgpfb of abuse panel - Urine by Screen methodRapid drug screen, urine Lab Routine , unspecified gestational age Encounter for supervision of normal first in first trimester Expected: 08/19/2024 (Approximate), Expires: 08/19/2025NOMS HealthcareComment on above:Expected: 08/19/2024 (Approximate), Expires: 08/19/2025Start: 08-19-2024 End: 68-37-9504QQ Pelvis transvaginalNOMS Healthcare Work Phone: comment on above:Expected: 08/19/2024, Expires: 08/19/2025Start: 07-12-2024 End: 66-18-4105Xuukoke encounter eshnynyek29/24/2025 2:30 PM EST Procedure Visit NOMS BCP OB [address] [place] [address] Dwain Kelley, DO [address] [place] [place], [place] [phone] NOMS BCP OBStart: 07-12-2024 End: 11-56-3462nIT, quantitative, pregnancyhCG, quantitative, Lab Routine Missed menses Expected: 07/12/2024 (Approximate), Expires:07/12/2025[facility] Work Phone: comment on above:Expected: 07/12/2024 (Approximate), Expires: 07/12/2025Start: 04-19-2024 End: 28-01-0372Fsxmeqa encounter procedureNOMS BCP OBComment on above:Arrived Start: 04-12-2024 End: 79-50-1047Msvsu B DNA probe, amplificationStrep B DNA probe, amplification Lab Routine Third trimester Expected: 04/12/2024 (Approximate), Expires: 04/12/2025[facility] Work Phone: comment on above:Expected: 04/12/2024 (Approximate), Expires: 04/12/2025Start: 04-12-2024 End: 13-61-2521Jznkors encounter cphfrnief75/25/2024 1:30 PM EST Routine NOMS BCP OB [address] [place] [address] Dwain Kelley, DO [address] [place] [address] NOMS BCP OBStart: 03-24-2024 End: 85-17-0031Gxhqwlr encounter procedureNOMS BCP OBComment on above:Arrived Start: 03-24-2024 End: 34-02-8643Vhdnrahlvsjw / ancillary services zsttxhiofg95/06/2024 2:00 PM EST Ancillary Procedure [facility]OM[facility] BCP OB [address] [place] [address] NOMS BCP OBStart: 03-10-2024 End: 22-62-0483Lsmckys encounter procedureNOMS BCP OBComment on above:Arrived Start: 03-10-2024 End: 51-96-6351LP biophysical profile w non stress testUS biophysical profile w non stress test Imaging Routine SGA (small for gestational age) Expected: 03/10/2024 (Approximate), Expires: 03/10/2025[facility] Comment on above:Expected: 03/10/2024 (Approximate), Expires: 03/10/2025Start: 03-10-2024 End: 63-93-9165SG for pregnancyUS OB SCAN FOR GROWTH Imaging Routine SGA (small for gestational age) Expected: 03/10/2024 (Approximate), Expires: 03/10/2025[facility] Work Phone: comment on above:Expected: 03/10/2024 (Approximate), Expires: 03/10/2025Start: 02-26-2024 End: 07-60-5177Tvpgjmk encounter procedureNOMS BCP OBComment on above:Arrived Start: 02-11-2024 End: 31-11-1341Wcmzupa encounter ahksigdwh23/25/2024 2:40 PM EDT Routine NOM[facility] BCP OB [address] [facility] [place] [address] Dwain Kelley, DO [address] [place] [address] NOMS BCP OBStart: 02-09-2024 End: 11-78-3867Lvpvxix encounter procedureMercy Health [facility] Hospital US ImagingStart: 01-28-2024 End: 81-04-6984Ymlazmb encounter aqzkrvabp44/11/2024 1:20 PM EDT Routine [facility] BCP OB [address] [facility] [place] [address] Dwain Kelley, DO [address] [place] [address] NOMS BCP OBStart: 99-44-0683QGeK,Tdap and Td Vaccines (1 - Tdap)DTaP,Tdap and Td Vaccines (1 - Tdap)[facility] SystemStart: 52-92-4301Gshirrnjs vaccinationInfluenza VaccineMercy Health West Hospital SystemStart: 15-84-0442Dfrxm BMI ScreeningAdult BMI ScreeningProUniversity Hospitals [facility] SystemStart: 72-07-6240Ptiezxzbjo ScreeningDepression ScreeningMercy Health West Hospital SystemStart: 67-10-5995Aiamrjl ScreeningTobacco ScreeningMercy Health West Hospital System Start: 17-82-8270CNZ (1 - 2-dose series)MCV (1 - 2-dose series)[facility] SystemStart: 56-47-9475CSJ Vaccines (1 - 3-dose series)HPV Vaccines (1 - 3-dose series)[facility] SystemStart: 23-04-1316Upvbzvgib Vaccines (1 of 2 - 13+ 2-dose series)Varicella Vaccines (1 of 2 - 13+ 2-dose series)[facility] SystemStart: 08-00-2682AZeR,Tdap and Td Vaccines (1 - Tdap)DTaP,Tdap and Td Vaccines (1 - Tdap)[facility] SystemStart: 01-61-6934Kccbmpcvc A Vaccines (1 of 2 - 2-dose series)Hepatitis A Vaccines (1 of 2 - 2-dose series)[facility] SystemStart: 79-20-0046QMH Vaccines (1 of 2 - Standard series)MMR Vaccines (1 of 2 - Standard series)[facility] SystemStart: 2005 Hepatitis B Vaccines (1 of 3 - 3-dose series)Hepatitis B Vaccines (1 of 3 - 3- dose series)[facility] HospitalBacteria identified in Urine by CultureUrine culture Microbiology Routine Missed menses Ordered: 08/19/2024[facility] Comment on above:Ordered: 08/19/2024BC W Auto Differential panel - BloodCBC and differential Lab Routine Missed menses , unspecified gestational age Ordered: 08/19/2024[facility] Center[facility]:Ordered: 08/19/2024HLAMYDIA TRACHOMATIS (GENITO/STI)CHLAMYDIA TRACHOMATIS (GENITO/STI) Lab Routine STD exposure Ordered: 10/18/20[facility]Ordered: 10/18/2024 Hemoglobin A1c/Hemoglobin.total in BloodHemoglobin A1c Lab Routine Missed menses , unspecified gestational age Ordered: 08/19/2024[facility] Comment on above:Ordered: 08/19/2024Hepatitis B virus surface Ag [Presence] in Serum or Plasma by ImmunoassayHepatitis B surface antigen Lab Routine Missed menses , unspecified gestational age Ordered: 08/19/2024[facility] Comment on above:Ordered: 08/19/2024Hepatitis C virus Ab [Presence] in Serum or Plasma by ImmunoassayHepatitis C antibody Lab Routine Missed menses , unspecified gestational age Ordered: 08/19/2024[facility]: Ordered: 08/19/2024HIV-1/HIV-2 antigen/antibody combination immunoassayHIV-1 and HIV-2 antibodies Lab Routine Missed menses , unspecified gestational age Ordered: [facility]/2024[facility]Ordered: 08/19/2024 Neisseria gonorrhoeae DNA [Presence] in Unspecified specimen by NIK with probe detectionNeisseria gonorrhea DNA probe, direct Lab Routine STD exposure Ordered: [facility]Ordered: 10/18/2024Reagin Ab [Presence] in Serum by RPRRPR Lab Routine Missed menses , unspecified gestational age Ordered: 08/19/2024[facility] HealthcareComment on above:Ordered: 08/19/2024Rubella antibody, IgGRubella antibody, IgG Lab Routine Missed menses , unspecified gestational age Ordered: 08/19/2024[facility] HealthcareComment on above:Ordered: 08/19/2024SURESWAB(R) ADVANCED VAGINITIS PLUS, TMASURESWAB(R) ADVANCED VAGINITIS PLUS, TMA Pathology and Cytology Routine STD exposure Ordered: 10/18/2024[facility] Work Phone: comment on above:Ordered: 10/18/2024 End: 44-02-9994Hiyaqifk Lab TestUnlisted Lab Test Lab Routine 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, single or unspecified fetus Echogenic intracardiac focus of fetus on ultrasound 1 Occurrences starting until 01/04/2026[facility] Work Phone: comment on above:1 Occurrences starting 01/04/2025 until 01/04/2026 Payers DatePayer CategoryPayerPolicy ID2025[place]icaid [place] [id number] 2024Medicaid (Managed Care) [employer] [employer] Member Subscriber Plan / Payer (Effective 2024- Present) Name: Cherry Meneses Relation to Subscriber: Self Name: Cherry Meneses Payer ID: Not on file Group ID: Not on file Type: Not on file Address: [address] [id number] 2024Medicaid [id number] [id number] 2018 [facility] Subscriber Plan / Payer (Effective 2017- Present) Name: Cherry Meneses Relation to Subscriber: Child Name: Luigi Meneses Date of : 1979 (Work) Address: [address] [place] [id number] Payer ID: Not on file Type: Not on file Address: [address] [place] [id number] OtherANTHEM Member Subscriber Plan / Payer (Effective 2017- Present) Name: [place] MemberID: [id number] Relation to Subscriber: Child Name: Luigi Meneses of : 1979 Address: [address] [place] [address] Payer ID: [id number] (NAIC) Type: Not on file Address: [id number] [place], [place] [id number] 70-30-9036Dmurzjr5.2.840.732267.1.13.693.2.7.3.588045.50435-25-4766Suhbhst [id number] 2..1.794558.3.57[id number] 2..1.682039.3.57[id number] 2..1.135605.3.57[id number] 2..1.456994.3.57[id number] 2..1.325576.3.57[id number] 2..1.510958.3.57[id number] 2.16840.1.570158.3.57[id number] 2.160.1.023194.3.57[id number] 2.16840.1.026465.3.57[id number] 2.160.1.352884.3.57[id number] 2..1.006955.3.57[id number] 2..1.819117.3.57[id number] 2..1.138225.3.57[id number] 2.0.1.497605.3.57[id number] 2..1.169297.3.57[id number] 2.0.1.192659.3.579.2.[id number] 2.0.1.221297.3.579.[id number] 2.0.1.922893.3.57[id number] 2.0.1.125295.3.57[id number] 2.840.1.916918.3.57[id number] 2.0.1.034812.3.579.[id number] 2..840.1.658011.3.579.[id number] 2..840.1.715834.3.579.[id number] 2.0.1.897840.3.579.2.186956-35-2942Bdjmtyw3870628 2.840.1.828767.3.579.[id number] Social History DateTypeDetailFacilityStart: 01-28-2024 End: 27-88-2689Jxr Assigned At [facility] eCareDiary Other Start: 01-07-2023 End: 22-04-1207Xhtplot smoking status NHISNever smoked tobaccoNOMS Healthcare Start: 01-07-2023 End: 63-79-0278Rxdbovy use and exposureSmokeless tobacco non-userNOMS Healthcare Start: 02-26-2024 End: 70-92-2752Xacccnitn beverage intakeLifetime non-drinker (finding)[facility] HealthcareStart: 01-28-2024 End: 91-46-1919Wbupvnn of Social functionNOMS HealthcareStart: 08-13-2023 PregnancyNOMS HealthcareStart: 09-59-5288Lsx [facility] at [facility]Fe[facility] HealthcareStart: 74-70-8261Ocsvov identityIdentifies as female gender (finding) [facility] HealthcareStart: 97-06-8414Uamzft orientationHeterosexual (finding)NOMS HealthcareTobacco smoking status NHISTobacco smoking consumption unknownNOMS HealthcareDo you belong to any clubs or organizations such as jain groups, unions, fraternal or athletic groups, or school groups?YesProMedica Health SystemAre you now , , , , never or living with a partner?Never marriedProMedica Health SystemHow often to you have a drink containing alcohol?NeverProMediMitrAssist St[facility] Health Centertart: 58-61-6001Xvr many standard drinks containing alcohol do you have on a typical day?Patient does not drinkMercy Health West Hospital SystemDo you feel stress - tense, restless, nervous, or anxious, or unable to sleep at night because yourmind is troubled all the time - these days [OSQ]Not at allCrystal Clinic Orthopedic CenterMitrAssist St[facility] Health Centertart: 75-85-1494Yja assigned at birthNot on fileCrystal Clinic Orthopedic CenterMitrAssist St[facility] Health Centertart: 04-18-8111EomTafxon (finding) [facility] Clinical Notes 01-11-2022 to 03-09-2025 Note Date & CdloFyzmSjacvofz74-18-3909 History of Present illness Narrative* Marcela Lopes MA - 03/09/2025 2:50 PM [...] nursing note reviewed. Exam conducted with a metal annealer present. Vitals: Estimated body mass index is 35.43 kg/m as calculated from the following: Height as of 10/03/23: 5' 3 . Weight as of 03/03/25: 200 lb. BP: Patient's last menstrual period was 06/14/2024 (approximate). Assessment/Plan ICD-10-CM 1. Third trimester ([facility]) Z34.93 POCT urinalysis dipstick manually resulted 2. 38 weeks gestation of ([facility]) Z3A.38 Return OB: Patient presents [...] behalf of: BARBARA Worrell documented in this encounterCapital Region Medical CenterWsschoejrg68-18-9328 History of Present illness Narrative* BARBARA Worrell - 03/03/2025 10:20 AM EDT [...] Vitals: Estimated body mass index is 35.43 kg/m as calculated from the following: Height as of 10/03/23: 5' 3 . Weight as of this encounter: 200 lb. BP: 122/80 Patient's last menstrual period was 06/14/2024 (approximate). ASSESSMENT & PLAN ICD-10-CM 1. Third trimester ([facility]) Z34.93 POCT urinalysis dipstick manually resulted 2. 37 weeks gestation of ([facility]) Z3A.37 Return OB: Patient presents today [...] Name Age of Onset Stroke Maternal Grandfather Johnt Allred Diabetes Maternal Grandmother Maile Hut Heart failure Maternal Grandmother Maile Allred Diabetes Paternal Grandmother Mari Meneses [4] No past surgical history on file. documented in this encounterCapital Region Medical CenterPogqglflbr86-59-3576 History of Present illness Narrative* Karen Reynolds NP - 02/24/2025 2:20 PM EDT Reason for Appointment: Patient ID: [...] Name Age of Onset Stroke Maternal Grandfather Johnt Allred Diabetes Maternal Grandmother Maile Allred Heart failure Maternal Grandmother Maile Hut Diabetes Paternal Grandmother Mari Meneses SURGICAL HISTORY [...] nursing note reviewed. Exam conducted with a metal annealer present. Vitals: Estimated body mass index is 35.04 kg/m as calculated from the following: Height as of 10/03/23: 5' 3 . Weight as of this encounter: 197 lb 12.8 oz. BP: 122/72 Patient's last menstrual period was 06/14/2024 (approximate). ASSESSMENT & PLAN ICD-10-CM 1. Third trimester ([facility]) Z34.93 CULTURE, GROUP B STREP WITH SUSCEPTIBLITY CULTURE, GROUP B STREP WITH SUSCEPTIBLITY 2. 36 weeks gestation of ([facility]) Z3A.36 POCT urinalysis dipstick manually resulted Return OB: Patient presents today for a routine obstetrics appointment. Patient is currently 36w3d . Patient states she is doing well but has complaints of being tired due to current . Patient has verbalizes frequent movement. labor precautions was discussed/given and patient was instructed to perform kick counts three times a day. Orders Placed This Encounter Procedures CULTURE, GROUP B STREP WITH SUSCEPTIBLITY POCT urinalysis dipstick manually resulted Follow Up: Patient is to return to office in 1 week for routine OB appointment. Documented by Karen Reynolds NP on behalf of: Karen Reynolds NP documented in this encounterCapital Region Medical CenterMrlasozwxk60-50-1904 History of Present illness Narrative* Karen Reynolds NP - 02/16/2025 1:00 PM EDT Reason for Appointment: Patient ID: [...] nursing note reviewed. Exam conducted with a metal annealer present. Vitals: Estimated body mass index is 35.04 kg/m as calculated from the following: Height as of 10/03/23: 5' 3 . Weight as of this encounter: 197 lb 12.8 oz. BP: 130/82 Patient's last menstrual period was 06/14/2024 (approximate). ASSESSMENT & PLAN ICD-10-CM 1. 35 weeks gestation of ([facility]) Z3A.35 POCT urinalysis dipstick manually resulted 2. Third trimester ([facility]) Z34.93 POCT urinalysis dipstick manually resulted 3. [...] week for routine OB appointment. Documented by Karen Reynolds NP on behalf of: Karen Reynolds NP documented in this encounterCapital Region Medical CenterAfnvdpbvfz00-49-7874 History of Present illness Narrative* Karen Reynolds NP - 02/02/2025 9:00 AM EDT Reason for Appointment: Patient ID: [...] Maile Allred Heart failure Maternal Grandmother Maile Allrde Diabetes Paternal Grandmother Mari Meneses SURGICAL HISTORY [...] nursing note reviewed. Exam conducted with a metal annealer present. Vitals: Estimated body mass index is 33.8 kg/m as calculated from the following: Height as of 10/03/23: 5' 3 . Weight as of this encounter: 190 lb 12.8 oz. BP: 116/78 Patient's last menstrual period was 06/14/2024 (approximate). ASSESSMENT & PLAN ICD-10-CM 1. Third trimester ([facility]) Z34.93 POCT urinalysis dipstick manually resulted 2. 33 weeks gestation of ([facility]) Z3A.33 POCT urinalysis dipstick manually resulted Return [...] resulted Follow Up: Patient is scheduled with MFM in [place] for follow up Ultrasound tomorrow. Patient is to return to office in 2 week for routine OB appointment. Documented by Karen Reynolds NP on behalf of: Karen Reynolds NP documented in this encounterCapital Region Medical CenterUuylvinzpt42-49-8305 History of Present illness Narrative* Carolynn Kovacs LPN - 01/20/2025 9:00 AM EDT Reason for Appointment: Patient ID: [...] nursing note reviewed. Exam conducted with a metal annealer present. Vitals: Estimated body mass index is 33.13 kg/m as calculated from the following: Height as of 10/03/23: 5' 3 . Weight as of this encounter: 187 lb. BP: 118/76 Patient's last menstrual period was 06/14/2024 (approximate). ASSESSMENT & PLAN ICD-10-CM 1. Third trimester ([facility]) Z34.93 POCT urinalysis dipstick manually resulted 2. 31 weeks gestation of ([facility]) Z3A.31 Patient presents today for a routine obstetrics appointment. Patient is currently 31w3d with a Estimated Date of Delivery: 03/21/25. Patient was seen at [facility] and confirmed clubfoot left. Patient to returnt to clinic in 2 weeks for return OB. Patient has UDS scheduled with [facility] in [facility] 02/03/25. Documented by Carolynn Kovacs LPN on behalf of: Dwain Kelley DO documented in this encounterCapital Region Medical CenterEiqcwgrxte68-56-8910 History of Present illness Narrative* Lanette Mike LPN - 01/05/2025 1:40 PM EDT Reason for Appointment: Patient ID: [...] nursing note reviewed. Exam conducted with a metal annealer present. Vitals: Estimated body mass index is 31.89 kg/m as calculated from the following: Height as of 10/03/23: 5' 3 . Weight as of this encounter: 180 lb. BP: 110/74 Patient's last menstrual period was 06/14/2024 (approximate). ASSESSMENT & PLAN ICD-10-CM 1. Third trimester ([facility]) Z34.93 POCT urinalysis dipstick manually resulted 2. 29 weeks gestation of ([facility]) Z3A.29 POCT urinalysis dipstick manually resulted 3. [...] by Lanette Mike LPN on behalf of: Dwain Kelley DO documented in this encounterCapital Region Medical CenterItoyxalcdz18-15-6955 History of Present illness Narrative* Dominick Rojo MD - 01/04/2025 10:00 AM EDT REASON FOR CONSULTATION: Echogenic cardiac focus HISTORY [...] and the other consultants, we search on [employer] and all the available care everywhere epic I did review all the imaging studies of the patient available on EMR, ordered by the primary care physician and the other regulatory affairs consultant HABITS: Patient activity no restrictions, diet [...] to be anticipated. should be reserved for routineobstetrical cases and the patient should be allowed to go to term. Early induction of labor and section should be reserved for routine OB indication. RECOMMENDATION: 1. Echogenic cardiac focus and left clubfoot seen on today's ultrasound. 2. Patient underwent cell free DNA testing today. 3. Follow-up in 4 weeks for completion of targeted anatomy at our [facility] site 4. Routine care at OB provider. [...] patient is in complete care of her balance recesser. Patient does have 1more ultrasound scheduled with us. Thank you for allowing me to participate in Cherry Meneses . If there any questions please do nothesitate to contact us. Sincerely, DOMINICK ROJO MD * Oren Carrizales RN - 01/04/2025 10:00 AM EDT Headache/epigastric pain/blurry vision/swelling? No Cramping/contractions? No Spotting/vaginal bleeding? No Loss or gush of fluid like your water may have broken? No Do you have cats at home? No Do you change the litter box (reason: risk of toxoplasmosis)? N/A Genetic testing done this here or other office? No Have you been seen here at [facility] in a previous ? Yes Recent ER visits or hospitalizations? No Bring blood sugar log or meter with you today? (Please bring them with you for every visit at [facility]) N/A Flu vaccine (Mar-July)? N/A Any concerns that you would like me to mention to the provider today? No * Oren Carrizales RN - 01/04/2025 10:00 AM EDT Blood drawn for [facility] cell free DNA screening. Patient tolerated well. documented in this encounterOhioHealth [facility]08-19-2025 Miscellaneous Notes* Addendum Note - Oren Carrizales RN - 01/04/2025 10:00 AM EDTAddended by: OREN CARRIZALES on: 01/04/2025 10:58 AM Modules accepted: Orders documented in this encounterOhioHealth [facility]ering[facility]08-19-2025 Note* Addendum Note - Oren Carrizales RN - 01/04/2025 10:00 AM EDTAddended by: OREN CARRIZALES on: 01/04/2025 10:58 AM Modules accepted: Orders [facility]08-05-2025 History of Present illness Narrative* BARBARA Worrell - 12/21/2024 11:20 AM EDT Reason for Appointment: Patient ID: [...] ASSESSMENT & PLAN ICD-10-CM 1. Second trimester ([facility]) Z34.92 POCT urinalysis dipstick manually resulted 2. 27 weeks gestation of ([facility]) Z3A.27 Return OB: Patient presents today for [...] behalf of: BARBARA Worrell documented in this encounterCapital Region Medical CenterCkyxlribdl36-66-9703 Miscellaneous Notes* Telephone Encounter - Edie Smith RN - 11/25/2024 1:02 PM EDT Spoke to staff from Dr. Kelley's office. Patient had no genetic testing done and she has not completed all of her labs. documented in this encounterOhioHealth [facility]07-10-2025 Telephone encounter Note* Telephone Encounter - Edie Smith RN - 11/25/2024 1:02 PM EDT Spoke to staff from Dr. Kelley's office. Patient had no genetic testing done and she has not completed all of her labs. [facility]07-07-2025 History of Present illness Narrative* Camille Del Rosario - 11/22/2024 10:20 AM EDT Reason for Appointment: Patient [...] nursing note reviewed. Exam conducted with a metal annealer present. Vitals: Estimated body mass index is 26.26 kg/m as calculated from the following: Height as of 10/03/23: 5' 3 . Weight as of 10/18/24: 148 lb 4 oz. BP: Patient's last menstrual period was 06/14/2024 (approximate). ASSESSMENT & PLAN ICD-10-CM 1. Second trimester ([facility]) Z34.92 2. Abnormal finding on ultrasound R93.89 [...] Patient will need to be referred to [facility] for evaluation. No orders of the defined types were placed in this encounter. Follow Up: Patient is to return to office in 4 week for routine OB appointment. Documented by Carolynn Kovacs LPN on behalf of: Dwain Kelley DO documented in this encounterCapital Region Medical CenterAumiizxapg93-86-0684 History of Present illness Narrative* Karen Reynolds NP - 10/18/2024 11:30 AM EDT Reason for Appointment: Patient ID: [...] nursing note reviewed. Exam conducted with a metal annealer present. Vitals: Estimated body mass index is [...] week for routine OB appointment. Documented by Karen Reynolds NP on behalf of: BARBARA Worrell documented in this encounterCapital Region Medical CenterXdbbbozbzo15-34-2167 History of Present illness Narrative* Carolynn Kovacs, [employer] - 09/20/2024 1:20 PM EDT Reason for Appointment: Patient ID: [...] or undercooked meat, and stay away from [facility]. Patient has been consulted regarding any further do's and don'tsof . Patient voiced understanding and all questions and concerns were answered. Orders Placed This Encounter Procedures POCT urinalysis dipstick manually resulted Follow Up: Patient is to return in 4 weeks for routine OB appointment. Documented by Carolynn Kovacs LPN on behalf of: Dwain Kelley DO documented in this encounterCapital Region Medical CenterLaplnabgbn38-66-5387 History of Present illness Narrative* Cely Jones MA - 08/19/2024 1:00 PM EDT Reason for Appointment: Patient ID: [...] drink 6-8 glasses of water a day, eatno raw or undercooked meat, and stay away from [facility]. Patient has also been advised to not change litter boxes and eat 6 small meals a day. Patient has been consulted regarding the do's and don'ts ofpregnancy. Patient was given labs and all questions [...] by: Cely Jones MA documented in this encounterCapital Region Medical CenterRmtnxfhznx20-95-6210 History of Present illness Narrative* Carolynn Kovacs, SALLY - 07/12/2024 2:30 PM EST Reason for Appointment: Patient ID: Cherry Meneses [...] nursing note reviewed. Exam conducted with a metal annealer present. Vitals: Estimated body mass index is [...] by Carolynn Kovacs LPN on behalf of: Dwain Kelley DO documented in this encounterCapital Region Medical CenterYyuarbjkue35-22-3992 History of Present illness Narrative* Cely Jones MA - 06/21/2024 3:30 PM EST Reason for Appointment: Patient ID: Cherry Meneses [...] nursing note reviewed. Exam conducted with a metal annealer present. Vitals: Estimated body mass index is [...] behalf of: BARBARA Worrell documented in this encounterCapital Region Medical CenterAfyvlkvmng80-48-1608 History of Present illness Narrative* Carolynn Kovacs, [employer] - 04/19/2024 2:00 PM EST Reason for Appointment: Patient ID: Cherry Meneses [...] nursing note reviewed. Exam conducted with a metal annealer present. Vitals: Estimated body mass index is [...] gestation due to HTN. Consents faxed to [facility] and patient aware to arrive at the ER entrance. Patient to return to clinic for appointment. Documented by Carolynn Kovacs LPN on behalf of: Dwain Kelley DO documented in this encounterCapital Region Medical CenterQbbdjspthf62-31-8455 History of Present illness Narrative* Carolynn Kovacs LPN - 04/12/2024 1:30 PM EST Reason for Appointment: Patient ID: Cherry Meneses [...] nursing note reviewed. Exam conducted with a metal annealer present. Vitals: Estimated body mass index is [...] of: Tiffani Bryan PA-C documented in this encounterCapital Region Medical CenterFwhyfznqpv93-28-1470 History of Present illness Narrative* BARBARA Worrell - 03/24/2024 2:50 PM EST Reason for Appointment: Patient ID: Cherry Meneses [...] behalf of: BARBARA Worrell documented in this encounterCapital Region Medical CenterUvaopqaiyc42-03-2802 History of Present illness Narrative* Lanette Mike LPN - 03/10/2024 2:30 PM EDT Reason for Appointment: Patient ID: [...] nursing note reviewed. Exam conducted with a metal annealer present. Vitals: Estimated body mass index is [...] by Lanette Mike LPN on behalf of: Dwain Kelley DO documented in this encounterCapital Region Medical CenterYlkxdtksbd69-69-9428 History of Present illness Narrative* BARBARA Worrell - 02/26/2024 10:20 AM EDT Reason for Appointment: Patient [...] behalf of: BARBARA Worrell documented in this encounterCapital Region Medical CenterHvgybatxfp84-28-4926 History of Present illness Narrative* Lanette Mike, [employer] - 02/11/2024 2:40 PM EDT Reason for Appointment: Patient ID: [...] nursing note reviewed. Exam conducted with a metal annealer present. Vitals: Estimated body mass index is [...] by Lanette Mike LPN on behalf of: Dwain Kelley DO documented in this encounterCapital Region Medical CenterFtqjugtkmw45-40-3197 History of Present illness Narrative* Edie Smith RN - 02/09/2024 3:00 PM EDT Headache/epigastric pain/blurry vision/swelling? No Cramping/contractions? No Abnormal vaginal discharge? No Spotting/vaginal bleeding? No Loss or gush of fluid like your water may have broken? No Do you have cats at home? No Do you change the litter box (reason: risk of toxoplasmosis)? NA Genetic testing done this here or other office? Yes Have you been seen here at [facility] in a previous ? NA Recent ER visits or hospitalizations? No Bring blood sugar log or meter with you today? (Please bring them with you for every visit at [facility]) NA Flu vaccine (Mar-July)? NA Any concerns that you would like me to mention to the provider today? No * Dominick Rojo MD - 02/09/2024 3:00 PM EDT REASON FOR CONSULTATION: Suspected growth Restriction ruled [...] and the other consultants, we search on [employer] and all the available care everywhere epic I did review all the imaging studies of the patient available on EMR, ordered by the primary care physician and the other regulatory affairs consultant HABITS: Patient activity no restrictions, diet [...] patient is in complete care of her balance recesser. Patient does not have any future appointment scheduled with us Thank you for allowing me to participate in Cherry Meneses . If there any questions please do nothesitate to contact us. Sincerely, DOMINICK ROJO MD documented in this encounterOhioHealth [facility]09-11-2024 History of Present illness Narrative* Lanette Bowmanemily, SALLY - 01/28/2024 1:20 PM EDT Reason for Appointment: Patient ID: [...] nursing note reviewed. Exam conducted with a metal annealer present. Vitals: Estimated body mass index is [...] behalf of: Tiffani Sanches documented in this encounterCapital Region Medical CenterQhwbsfxdgp71-22-2834 Evaluation note* Encounter Date Diagnosis Assessment Notes Treatment Notes Treatment Clinical Notes Dec, Sore throat (ICD-10 - J02.9) Dec,Viral URI (ICD-10 - J06.9) Advised patient and [...] treatment plan. Patient left in stable condition [employer] Other Evaluation note* Diagnosis Third trimester state, incidental 30 weeks gestation of documented in this encounter [facility] HealthcareEvaluation note* Diagnosis Third trimester state, incidental 32 weeks gestation of SGA (small for gestational age) Fabts-nuq-rlokt without mention of malnutrition, unspecified (weight) documented in this encounter [facility] HealthcareEvaluation note* Diagnosis Third trimester state, incidental 34 weeks gestation of documented in this encounter [facility] HealthcareEvaluation note* Diagnosis Third trimester state, incidental 36 weeks gestation of Bacterial infection due to mycoplasma [facility] Diagnosis 37 weeks gestation of [...] ruled out- Primary [facility] Diagnosis Missed menses documented in [...] fetus on ultrasound [facility] Diagnosis 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, single or unspecified fetus- Primary Echogenic intracardiac focus of fetus on ultrasound [facility] Diagnosis Third trimester (HHS-HCC) [...] 35 weeks gestation of (HHS-HCC) Third trimester (HHS-HCC) state, incidental 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 [facility] Diagnosis Third trimester (HHS-HCC) state, incidental 36 weeks gestation of (HHS-HCC) [facility] Diagnosis Third trimester (HHS-HCC) state, incidental 37 weeks gestation of (HHS-HCC) [facility] Diagnosis Third trimester (HHS-HCC) state, incidental 38 weeks gestation of (HHS-HCC) [facility] N[facility]ative - Reported* Type Description Date Medical History [email or web address] Other InstructionsNot on filedocumented in this encounter [facility] filedocumented in [facility] filedocumented in this [facility] filedocumented in [facility] encounter [facility] Summary Purpose Family History No Family History Records FoundNo Family History Records FoundNo Family History Records FoundNo Family History Records Found Advance Directives No Advanced Directives Records FoundNo Advanced Directives Records FoundNo Advanced Directives Records FoundNo Advanced Directives Records Found Additional Source Comments INFORMATION SOURCE (unrecogn ized section and content) DATE CREATED AUTHOR 06/07/2019 [facility] DATE CREATED AUTHOR AUTHOR'S ORGANIZ ATION 01/05/2025 [facility] DATE CREATED AUTHOR AUTHOR'S ORGANIZ ATION 02/04/2025 [facility] DATE CREATED AUTHOR AUTHOR'S ORGANIZ ATION 03/11/2025 [facility] EPIC REASON FOR VISIT (unrecogniz ed section and content) ReasonCommentsRoutine VisitReasonComments6 week post partumReason Commentslow estimated weightReasonCommentsContraceptionMirena InsertReason CommentsAmenorrheaReasonCommentsRoutine OB CareReasonCommentsSuspected Club Foot Care Teams (unrecognized sec tion and content) Team MemberRelationshipSpecialtyStart DateEnd Date Richie Tinajero MD [address], [place] [address] PCP - Generalmily Medicine09/08/23Team MemberRelationshipSpecialtyStart DateEnd Date Richie Tinajero MD [address], [place] [address] PCP - GeneralFamily Medicine09/08/23Team MemberRelationshipSpecialtyStart DateEnd Date Richie Tinajero MD [address], [place] [address] PCP - Generalmily Medicine09/08/23Team MemberRelationshipSpecialtyStart DateEnd Date Richie Tinajero MD [address], [place] [address] [facility]Team MemberRelationshipSpecialtyStart DateEnd Date Richie Tinajero MD [address] [place] [address] PCP - [facility] Medicine09/08/23Team MemberRelationshipSpecialtyStart DateEnd Date Richie Tinajero MD [address] [place] [address] PCP - [facility]09/08/23Team MemberRelationshipSpecialtyStart DateEnd Date Richie Tinajero MD [address] [place] [address] PCP - [facility] Medicine09/08/23Team MemberRelationshipSpecialtyStart DateEnd Date Richie Tinajero MD [address] [place] [address] PCP - [facility] Medicine09/08/23Team MemberRelationshipSpecialtyStart DateEnd Date Richie Tinajero MD [address] [place] [address] PCP - [facility]09/08/23Team MemberRelationshipSpecialtyStart DateEnd Date Richie Tinajero DO [address] [place] [address] PCP - GeneralFamily Medicine07/10/22Team MemberRelationshipSpecialtyStart DateEnd Date Richie Tinajero DO [address], [place] [address] PCP - GeneralFamily Medicine07/10/22Team MemberRelationshipSpecialtyStart DateEnd Date Richie Tinajero DO [address], [place] [address] PCP - GeneralFamily Medicine07/10/22Team MemberRelationshipSpecialtyStart DateEnd Date Richie Tinajero MD [address], [place] [address] PCP - GeneralFamily Medicine09/08/23Team MemberRelationshipSpecialtyStart DateEnd Date Richie Tinajero MD [address], [place] [address] PCP - GeneralFamily Medicine09/08/23Team MemberRelationshipSpecialtyStart DateEnd Date Richie Tinajero MD PCP - GeneralFamily Medicine09/08/23Team MemberRelationshipSpecialtyStart DateEnd Date Richie Tinajero MD PCP - GeneralFamily Medicine09/08/23Team MemberRelationshipSpecialtyStart DateEnd Date Richie Tinajero MD PCP - GeneralFamily Medicine09/08/23Team MemberRelationshipSpecialtyStart DateEnd Date Richie Tinajero MD PCP - GeneralFamily Medicine09/08/23Team MemberRelationshipSpecialtyStart DateEnd Date Richie Tinajero MD PCP - GeneralFamily Medicine09/08/23Team MemberRelationshipSpecialtyStart DateEnd Date Richie Tinajero MD PCP - GeneralFamily Medicine09/08/23Team MemberRelationshipSpecialtyStart DateEnd Date Richie Tinajero DO [address], [place] [address] PCP - GeneralFamily Medicine07/10/22Team MemberRelationshipSpecialtyStart DateEnd Date Richie Tinajero MD PCP - GeneralFamily Medicine09/08/23Team MemberRelationshipSpecialtyStart DateEnd Date Richie Tinajero MD PCP - GeneralFamily Medicine09/08/23Team MemberRelationshipSpecialtyStart DateEnd Date Richie Tinajero DO [address], [place] [address] PCP - GeneralFamily Medicine07/10/22Team MemberRelationshipSpecialtyStart DateEnd Date Richie Tinajero DO [address] [facility], [place] [address] PCP - [facility] Medicine07/10/22Team MemberRelationshipSpecialtyStart DateEnd Date Richie Tinajero MD PCP - [facility] Medicine09/08/23Team MemberRelationshipSpecialtyStart DateEnd Date Richie Tinajero MD PCP - [facility] Medicine09/08/23 FOR RECORDS PERTAINING TO PATIENTS WHO ARE [...] BE BASED ON THE PRIMARY CLINICAL RECORDS. [employer] [facility]. provides no warranty or guarantee of the accuracy or completeness of information in this document.
[2025-03-13 10:04] LABS: Hematocrit 34.6 % (36.0-48.0); Hemoglobin 11.4 g/dL (12.0-16.0); Mean Corpuscular HGB Conc 32.9 g/dL (29.9-35.2); Mean Corpuscular Hemoglobin 26.5 pg (26.7-34.0); Mean Corpuscular Volume 80.3 fL (81.0-99.0); Platelet Count 320 10^3/uL (150-450); Red Blood Count 4.31 10^6/uL (4.20-5.40); White Blood Count 13.2 10^3/uL (4.0-11.0)
[2025-03-13 10:05] LABS: Glucose Urine UA NEGATIVE (NEGATIVE)
[2025-03-13 10:15] LABS: Cannabinoid Screen Urine NEGATIVE (NEGATIVE); Methamphetamines Screen Urine NEGATIVE (NEGATIVE); Tricyclic Antidepressant Urine NEGATIVE (NEGATIVE)
[2025-03-13] MEDS: 0.9 % SODIUM CHLORIDE 1,000 ML 1000 ML IV (10:31)
[2025-03-13 10:34] LABS: Crystals Seen? Seen #/HPF (None Seen)
[2025-03-13 10:35] LABS: Cast Seen? NONE SEEN #/LPF (NONE SEEN); Urine Culture Indicated YES-LC
[2025-03-13] MEDS: 0.9 % SODIUM CHLORIDE 1,000 ML 125 ML IV ×2 (11:33→15:01)
[2025-03-13] MEDS: ROPIVACAINE HCL/PF 400 MG/200 ML PREMIX 6 MG EPIDURAL (13:00)
[2025-03-13] MEDS: OXYTOCIN/0.9 % SODIUM CHLORIDE 10 UNITS/500 ML PLAST..BAG 6 UNIT IV (13:27)
[2025-03-13] MEDS: OXYTOCIN/0.9 % SODIUM CHLORIDE 20 UNITS/1,000 ML PLAST..BAG 125 UNIT IV ×2 (16:39→18:30)
--- NOTE | 2025-03-13 16:43 | PM.OBPRCVD ---
Procedure Intrapartal events: None Delivery augmentation: rupture of membranes and pitocin Delivery monitor: external FHT and external uterine Route of delivery: Episiotomy Description: none L&D Laceration Description: none Estimated blood loss (mL): 200 Anesthesia type: Epidural Disposition: floor Infant Delivery date: 03/13/25 Gender: male presentation: vertex Placental delivery description: Spontaneous cord description: 3 Vessels
[2025-03-13] MEDS: LABETALOL HCL 100 MG TABLET 200 MG PO (20:49)
[2025-03-13] MEDS: AMMONIA 1 EACH AMPULE IH ×2 (22:10→22:15)
[2025-03-13 22:52] LABS: Hematocrit 26.8 % (36.0-48.0); Hemoglobin 8.5 g/dL (12.0-16.0)
[2025-03-14 01:12] VITALS: BP 131/73; PULSE 99
[2025-03-14 06:13] LABS: Hemoglobin 7.6 g/dL (12.0-16.0); Immature Granulocytes Abs Auto 0.22 10^3/uL (0.00-0.03); Immature Granulocytes Pct Auto 1.3 % (0.0-0.5); Lymphocytes Absolute Auto 3.8 10^3/uL (1.2-3.8); Mean Corpuscular HGB Conc 31.8 g/dL (29.9-35.2); Mean Corpuscular Hemoglobin 26.2 pg (26.7-34.0); Mean Corpuscular Volume 82.4 fL (81.0-99.0); Platelet Count 257 10^3/uL (150-450); Red Blood Count 2.90 10^6/uL (4.20-5.40); White Blood Count 16.9 10^3/uL (4.0-11.0)
[2025-03-14 06:29] LABS: Hematocrit 23.9 % (36.0-48.0)
--- NOTE | 2025-03-14 07:59 | P.OBPN_ITS ---
OB - PN: Subj Subjective Patient comments: no complaints and pain well controlled [place] status: doing well Exam Constitutional Vital Signs, click to edit/add: Last Vital Signs Temp 98.4 F 03/13/25 15:25 Pulse 99 H 03/14/25 01:12 Resp 16 03/14/25 01:10 BP 131/73 03/14/25 01:12 O2 Del Method Room Air 03/13/25 18:00 Documenting provider has reviewed patient's vital signs: yes Common normals: no apparent distress Respiratory Common normals: normal respiratory effort and clear to auscultation bilaterally Cardio Common normals: regular rate and regular rhythm GI Common normals: Normal to inspection, nondistended, normoactive bowel sounds present Extremity Common normals: no clubbing, cyanosis or edema and no calf tenderness Results Labs Labs: Short CBC 03/13/25 03/13/25 03/14/25 Range/Units 09:55 22:48 06:06 WBC 13.2 H 16.9 H (4.0-11.0) 10^3/uL Hgb 11.4 L 8.5 L 7.6 L (12.0-16.0) g/dL Hct 34.6 L 26.8 L 23.9 L* (36.0-48.0) % Plt Count 320 257 (150-450) 10^3/uL Urine 03/13/25 Range/Units 09:36 Urine Color Lt. yellow (YELLOW) Urine Clarity Clear (CLEAR) Urine pH 5.5 (5.0-9.0) Ur Specific [place] 1.020 (1.005-1.025) Urine Protein Trace (NEG/TRACE) mg/dL Urine Glucose (UA) Negative (NEGATIVE) mg/dL OB - PN: A/P Plan - Vaginal Delivery day: 1 Plan: routine care Time Spent with Patient Time: Total time spent is greater than 50% in coordination of care (as documented) at patient's floor/unit and/or counseling patient: Total time spent with greater than 50% in coordination of care (as documented) at patient's floor/unit and/or counseling patient: less than 15 minutes
[2025-03-14 08:07] VITALS: BP 141/84; PULSE 93
[2025-03-14 08:10] VITALS: BP 141/84; PULSE 93; TEMP 36.6
[2025-03-14] MEDS: LABETALOL HCL 100 MG TABLET 200 MG PO (08:11)
[2025-03-14] MEDS: DOCUSATE SODIUM 100 MG CAPSULE PO (08:11)
[2025-03-14] MEDS: RHO(D) IMMUNE GLOBULIN 1,500 UNIT SYRINGE 1500 UNIT IV (09:11)
[2025-03-14 16:19] VITALS: BP 135/75; PULSE 102
[2025-03-14 16:20] VITALS: BP 135/75; PULSE 102; TEMP 36.7
[2025-03-15 01:00] VITALS: BP 162/81; PULSE 95
[2025-03-15] MEDS: LABETALOL HCL 100 MG TABLET 200 MG PO ×2 (01:08→08:42)
[2025-03-15 05:00] VITALS: BP 126/65; TEMP 36.9
[2025-03-15 05:17] VITALS: BP 126/65; PULSE 96
[2025-03-15 06:05] LABS: Hemoglobin 7.0 g/dL (12.0-16.0); Immature Granulocytes Abs Auto 0.37 10^3/uL (0.00-0.03); Immature Granulocytes Pct Auto 2.7 % (0.0-0.5); Lymphocytes Absolute Auto 3.9 10^3/uL (1.2-3.8); Mean Corpuscular HGB Conc 31.8 g/dL (29.9-35.2); Mean Corpuscular Hemoglobin 26.4 pg (26.7-34.0); Mean Corpuscular Volume 83.0 fL (81.0-99.0); Platelet Count 281 10^3/uL (150-450); Red Blood Count 2.65 10^6/uL (4.20-5.40); White Blood Count 13.9 10^3/uL (4.0-11.0)
[2025-03-15 06:33] LABS: Hematocrit 22.0 % (36.0-48.0)
--- NOTE | 2025-03-15 07:59 | P.OBPN_ITS ---
OB - PN: Subj Subjective Patient comments: no complaints and pain well controlled [place] status: doing well Exam Constitutional Vital Signs, click to edit/add: Last Vital Signs Temp 98.4 F 03/15/25 05:00 Pulse 96 H 03/15/25 05:17 Resp 16 03/15/25 00:50 BP 126/65 03/15/25 05:17 O2 Del Method Room Air 03/15/25 00:50 Documenting provider has reviewed patient's vital signs: yes Common normals: no apparent distress Respiratory Common normals: normal respiratory effort and clear to auscultation bilaterally Cardio Common normals: regular rate and regular rhythm GI Common normals: Normal to inspection, nondistended, normoactive bowel sounds present Extremity Common normals: no clubbing, cyanosis or edema and no calf tenderness Results Labs Labs: Short CBC 03/15/25 Range/Units 05:53 WBC 13.9 H (4.0-11.0) 10^3/uL Hgb 7.0 L (12.0-16.0) g/dL Hct 22.0 L* (36.0-48.0) % Plt Count 281 (150-450) 10^3/uL OB - PN: A/P Plan - Vaginal Delivery day: 2 Plan: routine care, discharge home and follow up 6 weeks Time Spent with Patient Time: Total time spent is greater than 50% in coordination of care (as documented) at patient's floor/unit and/or counseling patient: Total time spent with greater than 50% in coordination of care (as documented) at patient's floor/unit and/or counseling patient: less than 15 minutes
[2025-03-15 08:33] VITALS: BP 144/73; PULSE 83; TEMP 35.9
[2025-03-15] MEDS: DOCUSATE SODIUM 100 MG CAPSULE PO (08:42)
== END 2025-03-15 14:30 | disposition home or self-care (01) | DRG 807 ==
PROVIDERS: Admitting Provider Obstetrics & Gynecology; PCP Family Medicine; Visit Provider Obstetrics & Gynecology
DX: O26.893 Other specified pregnancy related conditions, third trimester (principal); Z37.0 Single live birth; Z67.41 Type O blood, Rh negative; Z3A.38 38 weeks gestation of pregnancy
CPT/HCPCS: 36415; 51702; 59025; 59050; 59410; 80307; 81001; 85014; 85018; 85025; 85027; 85461; 86850; 86900; 86901; 87086; J0665; J2791; J2795